=== PATIENT | female | born 1960 | race African-American/Black ===

== ENCOUNTER 2016-11-08 17:51 | Emergency (ER) | payer MEDICARE ==
[2016-02-01 10:45] VITALS: BMI 44.0
[~2016-11-08 17:51] MED LIST: BAYER ASPIRIN325 MG PO; BAYER CHEWABLE81 MG PO; BRILINTA90 MG PO; COLCRYS0.6 MG PO; COREG25 MG PO; GLIPIZIDE10 MG PO; LASIX40 MG PO; NITROQUICK0.4 MG SL; NORVASC5 MG; NORVASC5 MG PO; PHOSLO667 MG PO; PLAVIX75 MG PO; PRINIVIL20 MG PO; SYNTHROID100 MCG PO; SYNTHROID200 MC1 PO; TYLENOL PM1 TAB PO; VICOPROFEN 7.5/1 TAB PO
[2016-11-08 19:42] LABS: BASOPHILS 0.2 % (0.0-2.0); EOSINOPHILS 2.9 % (0-7); HEMOGLOBIN 10.2 g/dL (12-16); IMMATURE GRANULOCYTES 0.2 % (0-5); LYMPHOCYTES 18.5 % (15-50); MCH 31.5 pg (26.0-34.0); MCHC 32.9 g/dL (31.0-37.0); MCV 95.7 fL (80.0-100.0); MEAN PLATELET VOLUME 9.3 fL (7.4-10.4); MONOCYTES 5.6 % (2-11); NEUTROPHILS 72.6 % (40-80); PLATELET COUNT 200 10x3/uL (130-400); RBC 3.24 10x6/uL (4.00-5.40); RDW 14.1 % (11.5-14.5); WBC 8.6 10x3/uL (4.8-10.8)
[2016-11-08 19:58] LABS: APPEARANCE CLEAR (CLEAR); BILIRUBIN NEGATIVE (NEGATIVE); COLOR YELLOW (YELLOW); GLUCOSE 50 mg/dL (NEGATIVE); KETONE NEGATIVE (NEGATIVE); LEUKOCYTE ESTERASE NEGATIVE (NEGATIVE); NITRITE NEGATIVE (NEGATIVE); PROTEIN 3+ mg/dL (NEGATIVE); UROBILINOGEN NORMAL (NORMAL)
[2016-11-08 19:59] LABS: BACTERIA FEW /hpf (NONE SEEN); EPITHELIAL CELLS 0-5 /hpf (0-5); RED CELLS - URINE 0-5 /hpf (0-5); WHITE CELLS - URINE NSEEN /hpf (0-5)
[2016-11-08 20:04] LABS: KETONE - SERUM NEGATIVE (NEGATIVE)
[2016-11-08 20:32] LABS: ALBUMIN 3.6 g/dL (3.4-5.0); ALKALINE PHOSPHATASE 132 U/L (46-116); ALT (SGPT) 18 U/L (10-68); AMYLASE - SERUM 107 U/L (25-115); BILIRUBIN - TOTAL 0.27 mg/dL (0.2-1.3); CARBON DIOXIDE 21.2 mmol/L (21.0-32.0); CHLORIDE - SERUM 106 mmol/L (98-107); CREATINE KINASE 177 UL (21-215); CREATININE - SERUM 9.6 mg/dL (0.6-1.3); POTASSIUM - SERUM 5.2 mmol/L (3.5-5.1); PRO BNP 27182 pg/mL (0-125); PROTEIN - SERUM 7.5 g/dL (6.4-8.2); SODIUM 140 mmol/L (136-145); UREA NITROGEN 58 mg/dL (7-18); eGFR NON AFRICAN AMERICAN 4 mL/min (90-120)
[2016-11-08 20:42] LABS: CALCIUM 7.6 mg/dL (8.5-10.1); LIPASE 346 U/L (73-393); MAGNESIUM - SERUM 2.2 mg/dL (1.8-2.4)
[2016-11-08 20:45] LABS: CALC OSMOLALITY 294 mosm/kg (275-300); GLUCOSE 94 mg/dL (74-106)
[2016-11-08 20:46] LABS: TROPONIN-I 0.262 ng/mL (0.000-0.060)
== END 2016-11-08 21:13 | disposition home or self-care (01) ==
LOC: D.ER 17:51
PROVIDERS: Family Medicine
DX: R53.1 Weakness (principal); D64.9 Anemia, unspecified; E11.9 Type 2 diabetes mellitus without complications; N18.6 End stage renal disease; E87.5 Hyperkalemia

== ENCOUNTER 2016-11-20 03:16 | Emergency (ER) | payer MEDICARE ==
[2016-02-01 10:45] VITALS: BMI 44.0
[2016-11-20 03:59] LABS: BASOPHILS 0.1 % (0.0-2.0); EOSINOPHILS 4.7 % (0-7); HEMATOCRIT 31.2 % (36.0-48.0); HEMOGLOBIN 10.2 g/dL (12-16); IMMATURE GRANULOCYTES 0.6 % (0-5); LYMPHOCYTES 20.5 % (15-50); MCH 31.1 pg (26.0-34.0); MCHC 32.7 g/dL (31.0-37.0); MCV 95.1 fL (80.0-100.0); MEAN PLATELET VOLUME 9.2 fL (7.4-10.4); MONOCYTES 6.2 % (2-11); NEUTROPHILS 67.9 % (40-80); PLATELET COUNT 224 10x3/uL (130-400); RBC 3.28 10x6/uL (4.00-5.40); WBC 7.8 10x3/uL (4.8-10.8)
[2016-11-20 04:32] LABS: ALBUMIN 3.6 g/dL (3.4-5.0); ALKALINE PHOSPHATASE 130 U/L (46-116); ALT (SGPT) 22 U/L (10-68); AMYLASE - SERUM 119 U/L (25-115); BILIRUBIN - TOTAL 0.34 mg/dL (0.2-1.3); CALC OSMOLALITY 292 mosm/kg (275-300); CALCIUM 7.1 mg/dL (8.5-10.1); CARBON DIOXIDE 21.7 mmol/L (21.0-32.0); CHLORIDE - SERUM 102 mmol/L (98-107); CREATINE KINASE 283 UL (21-215); CREATININE - SERUM 8.8 mg/dL (0.6-1.3); GLUCOSE 118 mg/dL (74-106); LIPASE 429 U/L (73-393); POTASSIUM - SERUM 4.8 mmol/L (3.5-5.1); PRO BNP 11784 pg/mL (0-125); PROTEIN - SERUM 8.2 g/dL (6.4-8.2); SODIUM 140 mmol/L (136-145); UREA NITROGEN 48 mg/dL (7-18); eGFR NON AFRICAN AMERICAN 5 mL/min (90-120)
[2016-11-20 04:33] LABS: CKMB 1.3 U/L (0.0-3.6); TROPONIN-I 0.255 ng/mL (0.000-0.060)
== END 2016-11-20 06:06 | disposition home or self-care (01) ==
LOC: D.ER 03:16
PROVIDERS: Family Medicine
DX: M54.9 Dorsalgia, unspecified (principal); N18.6 End stage renal disease; E87.5 Hyperkalemia; E11.9 Type 2 diabetes mellitus without complications

== ENCOUNTER 2016-11-22 18:03 | Inpatient (IN) | payer MEDICARE ==
[~2016-11-22] VITALS: Ht 165.1 cm; Wt 119.9 kg
--- NOTE | ~2016-11-22 | HEMODYNAMI ---
PATIENT:NEISHA BOO MEDICAL RECORD: [id number] : 62 [id number] ADMISSION DATE: 11/22/16 Generatedon:11/23/20168:00 Patient name: NEISHA BOO Patient #: [id number] : 1960 Date of study: 11/23/2016 Page: Of Hemodynamic Procedure Report Patient Data Patient Demographics Procedure consent was obtained First Name: NEISHA Gender: Female Last Name: EMA : 1960 [facility] Initial: Lenore Age: 55 year(s) Patient #: [id number] Race: Black SSN: [id number] Additional ID: [id number] Contact details Address: [address] [place] [address] b8 State: [place] City: [facility] Zip code: [address] Past Medical History Allergies Allergen Reaction Date Comments Reported Other allergy 01/22/2015 Hydrocodone, Morphine, [place], Statins, Allopurinol Morphine 09/11/2016 Other allergy 09/11/2016 allopurinol Other allergy 11/23/2016 morphine,pravastatin, allopurinol Admission Admission Data Admission Date: 11/22/2016 Admission Time: 21:33 Arrival Date: 11/22/2016 Arrival Time: 21:33 Admit Source: Other Insurance Payor: Medicare Room #: D.2130 Lab Results Lab Result Date: 11/23/2016 Lab Result Time: 0:00 Biochemistry Name Units Result Min Max BUN mg/dl 45 --(----)-* 7 18 Creatinine mg/dl 8.4 --(----)-* 0.6 1.3 CBC Name Units Result Min Max Hemoglobin g/dl 10.7 *-(----)-- 13.5 17.5 Procedure Procedure Types Cath Procedure Diagnostic Procedure LHC LHC w/Coronaries Procedure Description Procedure Date Procedure Date: 11/23/2016 Procedure Start Time: 7:48 Procedure End Time: 7:57 Procedure Staff Name Function Leonor Owens RT Scrub Jackson Nielsen MD Performing Physician Sita Steve RN Nurse Jhony Bacon RT Monitor Indication Angina Procedure Data Cath Procedure Fluoroscopy Diagnostic fluoroscopy Total fluoroscopy Time: 1.2 time: 1.2 min min Diagnostic fluoroscopy Total fluoroscopy dose: 802 dose: 802 mGy mGy Contrast Material Contrast Material Type Amount (ml) Isovue 300 66 Entry Location Entry Primary Successful Side Size Upsize Upsize Entry Closure Succes sful Closure Location (Fr) 1 (Fr) 2 (Fr) Remarks Device Remarks Femoral Right 5 Fr Exoseal artery Diagnostic catheters Device Type Used For End Catheter Placement Cordis 5Fr JL 4.0 Left Coronary Catheter (MP) Angiography Cordis 5Fr 3DRC Catheter Right Coronary (MP) Angiography Cordis 5Fr Pigtail LV Angiography Catheter (MP) Procedure Complications No complications Procedure Medications Medication Administration Route Dosage Oxygen NC 2 l/min Heparin Flush Bag added to field 2 bags (1000units/500ml NS) Lidocaine 2% added to field 20 Versed I.V. 1 mg Fentanyl I.V. 50 mcg Versed I.V. 0.5 mg Fentanyl I.V. 25 mcg Hemodynamics Rest HGB: 10.7 (g/dl) Heart Rate: 80 (bpm) Pressure Samples Time Site Value (mmHg) Purpose Heart Use Rate(bpm) 7:53 LV 141/25,29 EDP 44 Gradients Valve Time Site Site Mean SEP/DFP Peak To Heart Use 1 2 (mmHg) (sec/min) Peak Rate (mmHg) (bpm) Aortic 7:53 LV AO 52 Snapshots Pre Cath Intra NCS Post Cath Vital Signs Time Heart Resp SPO2 NIBP (mmHg) Rhythm Pain Sedation Rate (ipm) (%) Status Level (bpm) 7:38:53 87 15 100 178/116(146) NSR 0 (11) 10(A) , No pain 7:43:09 82 16 100 170/101(143) NSR 0 (11) 10(A) , No pain 7:47:23 72 14 100 164/104(136) NSR 0 (11) 10(A) , No pain 7:51:35 73 19 98 160/100(128) NSR 0 (11) 10(A) , No pain 7:55:27 73 18 97 149/95(126) NSR 0 (11) 10(A) , No pain Medications Time Medication Route Dose Verified Delivered Reason Notes Effect iveness by by 7:40:00 Heparin Flush added 2 Jackson Jackson [facility] ([facility]/500[facility] field MD MOSES NS) 7:40:06 Lidocaine 2% added 20ml Jackson Jackson used for to vial Morales [place] procedure field MD MOSES 7:40:52 Oxygen NC 2 Jackson Sita Per l/min St. Nish Steve RN physician 7:44:19 Versed I.V. 1 mg Jackson Sita for [facility]. Nish Steve RN sedation 7:44:29 Fentanyl I.V. 50 Jackson Sita for mcg [facility] Nish Steve RN sedation 7:49:10 Versed I.V. 0.5 Jackson Sita for mg [facility]. Nish Steve RN sedation 7:49:14 Fentanyl I.V. 25 Jackson Sita for mcg [facility]. Nish Steve RN sedation Procedure Log Time Note 7:19:14 Informed consent obtained and on chart 7:19:22 Diagnostic Cath Status : Elective 7:20:06 Indication : Angina 7:20:24 Ramiro Staley RT(R) sent for patient. Start room use. 7:20:25 Time tracking: Regular hours 7:20:30 Plan of Care:Hemodynamics will remain stable., Cardiac rhythm will remain stable., Comfort level will be maintained., Respiratory function will remain adequate., Patient/ family verbilizes understanding of procedure., Procedure tolerated without complication., Recovers from procedure without complications.. 7:21:27 Admit Source: Other 7:21:37 Arrival Date: 11/22/2016 9:33:00 PM 7:21:44 Insurance Payor : Medicare 7:23:23 Lab Result : Hemoglobin 10.7 g/dl 7:23:23 Lab Result : Creatinine 8.4 mg/dl 7:23:23 Lab Result : BUN 45 mg/dl 7:31:10 Patient received from Med II to CCL 1 Alert and oriented. Tansferred to table in Supine position. 7:31:11 Warm blankets applied, and lissy hugger turned on for patient comfort. 7:31:12 ECG and BP/O2 sat monitors applied to patient. 7:31:12 Correct patient and procedure confirmed by team. 7:35:56 ACC Patient presents with Unstable Angina CCS Anginal Class 3--Marked limitation of physical activity, angina occurs with ordinary activity.. 7:37:15 Previous problem with sedation/anesthesia? No ? 7:37:16 Snore? Yes 7:37:17 Sleep apnea? No 7:37:18 Opens mouth fully? Yes 7:37:18 Deviated septum? No 7:37:19 Sticks out tongue? Yes 7:37:21 Airway obstruction? No ? 7:37:23 Dentures? No ? 7:37:29 Patient diabetic? Yes. 7:37:47 If diabetic: On Metformin? No 7:37:50 Vital chart was started 7:37:52 Baseline sample Acquired. 7:38:02 H&P Date Dictated: 11/22/2016 Within 30 days and on chart.. 7:38:03 Pre-op teaching completed and patient verbalized understanding. 7:38:03 Pre-procedure instructions explained to patient. 7:38:06 Family in waiting room. 7:38:08 Patient NPO since Midnight. 7:39:25 Patient allergic to Other allergymorphine,pravastatin, allopurinol 7:39:27 Is the patient allergic to Iodine/contrast media? No. 7:39:29 Is patient on blood thinner?No 7:39:36 Pre procedure: right dorsailis pedis pulse 1+ Palpable, but thready & weak; easily obliterated 7:39:49 Patient pain scale 0/10 ?. 7:40:00 Heparin Flush Bag (1000units/500ml NS) 2 bags added to field was given by Jackson Nielsen MD; used for procedure; 7:40:06 Lidocaine 2% 20ml vial added to field was given by Jackson Nielsen MD; used for procedure; 7:40:21 IV patent on arrival in right antecubital with 0.9% NaCl at O. 7:40:28 Lab results completed and on chart. 7:40:42 Right groin area was prepped with chlora-prep and draped in sterile fashion 7:40:43 Sharps counted by scrub and verified by R.N. 7:40:43 Alarms reviewed by R. N. 7:40:52 Oxygen 2 l/min NC was given by Sita Steve RN; Per physician; 7:42:21 Patient not . Patient has had hysterectomy. 7:42:25 Physician arrived 7:42:25 Physician arrived 7:42:28 Use device set Femoral Dx 7:42:29 Tegaderm 4 x 4 opened to sterile field. 7:42:30 Acist Manifold opened to sterile field. 7:42:30 Acist Hand Control opened to sterile field. 7:42:32 Bag Decanter opened to sterile field. 7:42:32 Acist Syringe opened to sterile field. 7:42:33 Terumo 5Fr Van Lear Sheath opened to sterile field. 7:42:33 Cardinal Cath Pack opened to sterile field. 7:42:34 St Ajith 260cm J .035 wire opened to sterile field. 7:42:35 Cordis Infinity 5Fr Multipack catheter opened to sterile field. 7:43:11 Baseline sample Acquired. 7:43:20 Baseline sample Acquired. 7:43:23 Rhythm: sinus rhythm 7:43:30 Final Timeout: patient, procedure, and site verified with staff and physician. All members of the team are in agreement. 7:43:30 --------ALL STOP TIME OUT------ 7:43:32 Right groin site verified by team. 7:43:34 Physical assessment completed. ASA score P 2 - A patient with mild systemic disease as per Jackson Nielsen MD. 7:43:37 Sedation plan: IV Moderate Sedation Versed, Fentanyl 7:44:19 Versed 1 mg I.V. was given by Sita Steve RN; for sedation; 7:44:29 Fentanyl 50 mcg I.V. was given by Sita Steve RN; for sedation; 7:47:33 Zero performed for pressure channel P1 7:47:37 Zero performed for pressure channel P1 7:47:41 Zero performed for pressure channel P1 7:47:46 Zero performed for pressure channel P1 7:48:11 Full Disclosure recording started 7:48:11 Procedure started. 7:48:40 Local anesthetic to right femoral artery with Lidocaine 2% by Jackson Nielsen MD.INITIAL ACCESS ONLY 7:48:48 A 5 Fr sheath was inserted into the Right Femoral artery 7:48:58 A Cordis 5Fr JL 4.0 Catheter (BETTY) was advanced over the wire and used for Left Coronary Angiography. 7:49:10 Versed 0.5 mg I.V. was given by Sita tSeve RN; for sedation; 7:49:14 Fentanyl 25 mcg I.V. was given by Sita Steve RN; for sedation; 7:50:33 LCA angiography performed. 7:51:07 Catheter removed. 7:51:12 A Cordis 5Fr 3DRC Catheter (MP) was advanced over the wire and used for Right Coronary Angiography. 7:51:40 RCA angiography performed. 7:51:41 Catheter removed. 7:52:29 A Cordis 5Fr Pigtail Catheter (MP) was advanced over the wire and used for LV Angiography. 7:52:32 LV angiography performed. 7:53:06 LV gram done using TATUM 7:53:08 LV hemodynamics recorded. 7:53:11 Injector settings: Ml/sec: 5, Volume: 15, 7:53:19 EF : 52 % 7:53:32 Catheter removed. 7:53:39 Contrast amount:Isovue 300 66ml. 7:53:48 Sheath removed intact; hemostasis achieved with Exoseal to the Right Femoral artery. 7:53:55 Procedure ended.(Physican Out) 7:54:07 Fluoroscopy time 01.20 minutes. 7:54:18 Fluoroscopy dose: 802 mGy 7:54:18 Flurop Dose total: 802 7:54:19 Sharps counted by scrub and verified by R.N. 7:54:20 Insertion/operative site no bleeding no hematoma. 7:54:22 Post-op/insertion site Right Femoral artery dressed using a 4 x 4 and Tegaderm. 7:54:24 Post right femoral artery:stable 7:54:26 Post Procedure Pulses reassessed and unchanged 7:54:28 Post procedure rhythm: sinus rhythm 7:54:29 Post procedure instruction explained to patient.Patient verbalizes understanding. 7:54:43 Cordis 5Fr Exoseal opened to sterile field. 7:54:58 Procedure and supply charges have been captured, reviewed, submitted and are correct. 7:55:02 Procedure Complication : No complications 7:55:05 See physician's report for complete and final results. 7:55:05 Vital chart was stopped 7:55:07 Report given to PCU. 7:55:10 Patient transfered to PCU with Bed. 7:57:13 Full Disclosure recording stopped 7:57:13 Procedure ended. 7:57:18 End room use (Document Last) Device Usage Item Name Manufacture Quantity Catalog Hospital Part Current Minimal Lo t# / Number Charge Number Stock Stock Serial# Code Tegadeenrique 1 [id number] 246262 [id number] 5 4 x 4 Acist Acist 1 33983 788785 733511 934053 5 Hand Medical Control Systems Inc Acist Acist 1 41220 729428 696781 044080 5 Manifold Medical Systems Inc Acist Acist 1 57175 735703 812444 729400 20 Syringe Medical Systems Inc Bag Microtek 1 2002S 187643 14544 789136 5 Dec[employer]Agent Inc. Cardinal Cardinal [address] 040647 50400 796570 5 Cath Pack Health Terumo Terumo 1 [id number] 977651 980388 218706 [address] Ajith 1 600178 661863 229974 459493 30 260cm J .035 wire Cordis Cardinal 1 [id number] 280717 90933 586781 30 [employer] Health 5Fr Multipack catheter Cordis Cardinal 1 965390 5 5Fr JL Health 4.0 Catheter (MP) Cordis Cardinal 1 021173 5 5Fr 3DRC Health Catheter (MP) Cordis Cardinal 1 395512 5 5Fr Health Pigtail Catheter (MP) Cordis Cardinal 1 EX500 315462 965695 562493 10 5Fr Health Exoseal Signature Audit [place] Stage Time Signature Unsigned Intra-Procedure 11/23/2016 Jhony Bacon 8:00:09 AM RT(R) Signatures Monitor : Jhony Bacon RT Signature : Date : Time : [facility] [address] [facility] [place] [address]
[2016-11-22 20:09] LABS: BASOPHILS 0.4 % (0.0-2.0); EOSINOPHILS 4.8 % (0-7); HEMATOCRIT 32.8 % (36.0-48.0); HEMOGLOBIN 10.7 g/dL (12-16); IMMATURE GRANULOCYTES 0.8 % (0-5); LYMPHOCYTES 28.7 % (15-50); MCH 31.7 pg (26.0-34.0); MCHC 32.6 g/dL (31.0-37.0); MEAN PLATELET VOLUME 9.5 fL (7.4-10.4); MONOCYTES 10.6 % (2-11); NEUTROPHILS 54.7 % (40-80); PLATELET COUNT 206 10x3/uL (130-400); RBC 3.38 10x6/uL (4.00-5.40); RDW 14.3 % (11.5-14.5); WBC 7.4 10x3/uL (4.8-10.8)
[2016-11-22 20:20] LABS: ALBUMIN 3.3 g/dL (3.4-5.0); ANION GAP 18.7 mmol/L (8-16); BILIRUBIN - TOTAL 0.32 mg/dL (0.2-1.3); CARBON DIOXIDE 24.5 mmol/L (21.0-32.0); CREATININE - SERUM 8.4 mg/dL (0.6-1.3); POTASSIUM - SERUM 5.2 mmol/L (3.5-5.1); PROTEIN - SERUM 8.6 g/dL (6.4-8.2)
[2016-11-22] MEDS ORDERED: RENVELA800 MG PO (23:25)
--- NOTE | 2016-11-22 23:28 | NUR ---
RECIEVED TO 2129 FROM ER VIA WHEELCHAIR, AAOX3, SKIN WARM AND DRY, RESP UNLABORED, IV PATENT TO RIGHT AC, TELEMETRY IN PLACE SHOWING SINUS, O2@2LNC, NO DISTRESS NOTED
[2016-11-22 23:56] VITALS: BMI 44.0
[2016-11-23] VITALS: BP 138/84
[2016-11-23 04:00] VITALS: BP 142/78
--- NOTE | 2016-11-23 05:25 | NUR ---
RESTING QUIETLY IN BED, NO DISTRESS NOTED
--- NOTE | 2016-11-23 05:59 | NUR ---
NO CHANGES FROM PREVIOUS ASSESSMENT, CALL LIGHT IN REACH. WILL CONTINUE WITH PLAN OF CARE.
--- NOTE | 2016-11-23 07:29 | NUR ---
0710-NPO STATUS FOR HEART CATH THIS AM. PERMITS SIGNED. PRE-OP MEDS GIVEN. ON HEART MONITOR FROM ELECTRON BEAM WELDING MACHINE OPERATOR REPORT OF SR, OFF MONITOR AT THIS TIME. SALINE LOCK SEEN TO RIGHT AC, FLUSHES WELL. LEFT AVF, + BRUIT AND THRILL. ON ROOM AIR AT THIS TIME. WILL CONTINUE TO MONITOR.
--- NOTE | 2016-11-23 08:18 | NUR ---
0810-RETURNS FROM BACTERIOLOGY PROFESSOR WITH DRESSING DRY AND INTACT TO RIGHT GROIN. PPP AND STRONG. PATIENT TO LAY FLAT X 2 HOURS. WILL MONITOR.
--- NOTE | 2016-11-23 09:58 | NUR ---
0950-TO DIALYSIS VIA BED. TOLD DIALYSIS NURSE, JENNIFER, THAT PATIENT CAN SIT UP AT 30 DEGREES AT 1030 AND TO WATCH THE RIGHT GROIN CLOSELY. TO CALL ME IF ANY QUESTIONS.
--- NOTE | 2016-11-23 11:31 | NUR ---
STILL IN DIALYSIS. WILL HANG LEVAQUIN WHEN BACK ON FLOOR.
--- NOTE | 2016-11-23 13:26 | NUR ---
RETURNS FROM DIALYSIS.
[2016-11-23 13:34] VITALS: Ht 165.1 cm; Wt 119.9 kg
--- NOTE | 2016-11-23 14:25 | NUR ---
PATIENT COMPLAINTS OF NAUSEA, NO MEDICATIONS ON EMAR. BENNY WITH RENAL IS PAGED.
--- NOTE | 2016-11-23 15:16 | NUR ---
NO ANSWER YET FROM RAMANDEEP ZAPATA WITH RENAL. PAGED AGAIN. AWAITING CALL BACK.
[2016-11-23 16:30] VITALS: BP 175/92
--- NOTE | 2016-11-23 17:19 | NUR ---
SITTING ON SIDE OF BED EATING SUPPER. DENIES NEEDS AT PRESENT TIME. WILL CONTINUE TO MONITOR.
--- NOTE | 2016-11-23 19:00 | NUR ---
BEDSIDE REPORT RECIEVED, INITIAL ASSESSMENT COMPLETE, PLEASE SEE FLOW SHEETS FOR DETAILS. PT COMPLAINS OF PAIN IN BACK, WILL SEE ORDERS FOR AVAILABLE MEDS AND FOLLOW ORDERS ACCORDINGLY. DENIES ANY OTHER NEEDS AT THIS TIME, WILL CONTINUE TO MONITOR.
--- NOTE | 2016-11-23 21:00 | NUR ---
PT RESTING, STATED SHE GOT UP TO BATHROOM INDEPENDENTLY, DENIES NEEDS AT THIS TIME, WILL CONTINUE TO MONITOR.
[2016-11-23 21:09] VITALS: BP 176/96
--- NOTE | 2016-11-23 23:01 | NUR ---
SPOKE WITH PT ABOUT CURRENT MEDS AND ALSO ABOUT HER NAGGING COUGH. CALLED AND SPOKE WITH BENNY SABILLON AND RECIEVED ORDERS.
[2016-11-23 23:48] VITALS: BP 179/91
--- NOTE | 2016-11-24 01:05 | NUR ---
PT RESTING, WATCHING TELEVISION. DENIES NEEDS AT THIS TIME. BED LOW AND LOCKED, CALL LIGHT IN REACH. NO S&S OF ACUTE DISTRESS AT THIS TIME. WILL CONTINUE TO MONITOR.
--- NOTE | 2016-11-24 02:48 | NUR ---
SLEPPING, WILL CONTINUE TO MONITOR.
[2016-11-24 05:05] LABS: BASOPHILS 0.3 % (0.0-2.0); EOSINOPHILS 4.7 % (0-7); HEMATOCRIT 28.5 % (36.0-48.0); HEMOGLOBIN 9.2 g/dL (12-16); IMMATURE GRANULOCYTES 0.7 % (0-5); LYMPHOCYTES 31.6 % (15-50); MCHC 32.3 g/dL (31.0-37.0); MEAN PLATELET VOLUME 9.4 fL (7.4-10.4); MONOCYTES 7.1 % (2-11); NEUTROPHILS 55.6 % (40-80); PLATELET COUNT 190 10x3/uL (130-400); RBC 2.97 10x6/uL (4.00-5.40); RDW 14.1 % (11.5-14.5); WBC 7.1 10x3/uL (4.8-10.8)
[2016-11-24 05:12] VITALS: BP 137/74
[2016-11-24 05:17] LABS: CARBON DIOXIDE 25.5 mmol/L (21.0-32.0); CREATININE - SERUM 8.4 mg/dL (0.6-1.3); POTASSIUM - SERUM 4.5 mmol/L (3.5-5.1)
[2016-11-24 05:28] LABS: ALBUMIN 2.9 g/dL (3.4-5.0)
[2016-11-24 05:33] LABS: CALCIUM 6.8 mg/dL (8.5-10.1)
--- NOTE | 2016-11-24 05:43 | NUR ---
CRITICAL LABS CALLED IN, MEE MOSES.
--- NOTE | 2016-11-24 07:00 | NUR ---
RECEIVED REPORT. ASSUMED CARE OF PATIENT. PATIENT AMBULATING IN ROOM. RESP EVEN AND UNLABORED. GOOD BRUIT AND THRILL TO LEFT AV FISTULA. CALL LIGHT WITHIN REACH. DENIES NEEDS. NO DISTRESS.
[2016-11-24 08:31] VITALS: BP 139/74
[2016-11-24 11:42] VITALS: BP 144/75
--- NOTE | 2016-11-24 14:41 | NUR ---
RESTING WELL IN CHAIR AT BEDSIDE. CALL LIGHT WITHIN REACH. DENIES NEEDS. NO DISTRESS.
[2016-11-24 15:51] VITALS: BP 115/67
--- NOTE | 2016-11-24 15:51 | NUR ---
MEDICATED FOR PAIN AT THIS TIME. NO DISTRESS. SITTING TO CHAIR AT BEDSIDE.
--- NOTE | 2016-11-24 16:54 | NUR ---
PATIENT PATHWAYS - Patient uses [facility] on Wednesday/Wednesday/Wednesday am for OPHD. Medical records uploaded and forwarded to the unit for their records. AKOSUA PRL
[2016-11-24 19:00] VITALS: BP 115/64
--- NOTE | 2016-11-24 19:00 | NUR ---
REPORT RECIEVED, INITIAL ASSESSMENT COMPLETE, PLEASE SEE FLOW SHEETS FOR DETAILS. DENIES PAIN/NEEDS AT THIS TIME, BED LOW AND LOCKED, CALL LIGHT IN REACH. VSS, WILL CONTINUE TO MONITOR.
--- NOTE | 2016-11-25 00:18 | NUR ---
PT SLEEPING, WAKENED UPON ENTERING, DENIES PAIN/NEEDS AT THIS TIME. BED LOW AND LOCKED, CALL LIGHT IN REACH. WILL CONTINUE TO MONITOR.
--- NOTE | 2016-11-25 03:31 | NUR ---
PT SLEEPING. NO S&S OF DISTRESS. BREATHING UNLABORED. WILL CONTINUE TO MONITOR.
[2016-11-25 04:00] VITALS: BP 172/87
[2016-11-25 06:50] LABS: BASOPHILS 0.5 % (0.0-2.0); HEMATOCRIT 30.7 % (36.0-48.0); HEMOGLOBIN 10.1 g/dL (12-16); IMMATURE GRANULOCYTES 1.3 % (0-5); LYMPHOCYTES 36.7 % (15-50); MCH 31.3 pg (26.0-34.0); MCHC 32.9 g/dL (31.0-37.0); MEAN PLATELET VOLUME 9.7 fL (7.4-10.4); MONOCYTES 7.1 % (2-11); NEUTROPHILS 49.4 % (40-80); RBC 3.23 10x6/uL (4.00-5.40); RDW 13.9 % (11.5-14.5)
[2016-11-25 07:10] LABS: ANION GAP 19.3 mmol/L (8-16); CARBON DIOXIDE 23.3 mmol/L (21.0-32.0); CREATININE - SERUM 9.1 mg/dL (0.6-1.3); PHOSPHOROUS 6.5 mg/dL (2.5-4.9); POTASSIUM - SERUM 4.6 mmol/L (3.5-5.1)
[2016-11-25 07:13] LABS: PLATELET COUNT 233 10x3/uL (130-400); WBC 9.1 10x3/uL (4.8-10.8)
[2016-11-25 07:17] LABS: CALCIUM 6.7 mg/dL (8.5-10.1)
[2016-11-25 07:39] VITALS: BP 141/83
[2016-11-25] MEDS ORDERED: PHENERGAN DM SYR5 ML PO (08:10)
[2016-11-25] MEDS ORDERED: MUCINEX600 MG PO (08:11)
--- NOTE | 2016-11-25 10:11 | NUR ---
Patient Name: NEISHA BOO Admission Status: ER Accout number: [id number] Admission Date: 11-22-2016 : 1960 Admission Diagnosis:CHEST PAIN, UNSPECIFIED Attending: WILTON Current LOS: 3 Anticipated DC Date: 11-25-2016 Planned Disposition: Home Primary Insurance: MEDICARE A & B Discharge Planning Comments: * Is the patient Alert and Oriented? Yes 0 * How many steps to enter\exit or inside your home? 17 0 * PCP DR. MOISE 0 * Pharmacy [facility] ON [address] OR [facility] 0 * Preadmission Environment Home Alone 0 * ADLs Independent 0 * Equipment None 0 * Other Equipment NO MEDICAL EQUIPMENT PROVIDER PREFERENCE 0 * List name and contact numbers for known caregivers / representatives who currently or will assist patient after discharge: ROX BE, SISTER, 0 * Community resources currently utilized Other 0 * Please name any agencies selected above. OUTPATIENT DIALYSIS, [facility], M/W, 0545AM, [facility] (MEDICAID) TRANSPORT 0 * Additional services required to return to the preadmission environment? No 0 * Can the patient safely return to the preadmission environment? Yes 0 * Has this patient been hospitalized within the prior 30 days at any hospital? No 0 CM MET WITH PT IN ROOM TO DISCUSS DISCHARGE PLANNING AND NEEDS. PT REPORTS LIVING AT HOME INDEPENDENTLY AND ALONE. PT HAS NO MEDICAL EQUIPMENT AND NO OUTSIDE SERVICES ASSISTING IN THE HOME. PT ATTENDS OUTPATIENT DIALYSIS ON M/ SCHEDULE AT [facility], PT USES MEDICAID TRANSPORT THAT SHE HAS TO PAY FOR. REPORTS SHE SPENDS A LOT OF TIME AT HER SISTER'S HOUSE AND IS ON A WAITING LIST FOR A DOWNSTAIRS APARTMENT. CM DISCUSSED AVAILABILITY OF HOME HEALTH, REHAB SERVICES AND MEDICAL EQUIPMENT. PT DENIES DISCHARGE NEEDS, REPORTS HER NEPHEW WILL PICK HER UP FOR DISCHARGE HOME. IMPORTANT MESSAGE FROM MEDICARE PROVIDED AND EXPLAINED. Bet Taker: Killian Jha
[2016-11-25 11:38] VITALS: BP 153/77
--- NOTE | 2016-11-25 13:00 | NUR ---
NOTIFY OF ARTERIAL CALCIUM 0.9. 2G CALCIUM IV ORDERED PER BEFORE DISCHARGE. ALERT AND ORIENTED X4. SITTING ON SIDE OF BED. DENIES PAIN OR SOB. CONTINUE PLAN OF CARE. BED LOCKED AND LOW. CALL LIGHT IN REACH. TWO SIDERAILS UP. SINUS RHYTHM ON TELEMETRY.
--- NOTE | 2016-11-25 14:16 | OP ---
PATIENT NAME: NEISHA BOO MEDICAL RECORD: [id number] :[birth year] LOCATION:D.M2 D.2130 ADMISSION DATE:11/22/16 SURGEON: ANNIE MENG MD DATE OF OPERATION: 11/23/2016 PROCEDURE: Left heart catheterization, selective coronary angiography, and right femoral artery approach. CATHETERS: A 5-Malawian sheath, 5/4 left and right Matias, 5/4 pig. The procedure was well tolerated. The patient returned to the torres, sheath removed. ExoSeal device was placed. FINDINGS: Left ventriculography in the 30-degree TATUM view: Normal wall motion and normal systolic function. CORONARY ANATOMY: Left main: Left main is free disease. LAD: LAD diagonal in the area of previous stenting is widely patent throughout its course without evidence of restenosis. CIRCUMFLEX: Circumflex left dominant system free of disease. RIGHT CORONARY ARTERY: Rudimentary, still a moderate sized vessel, free of disease. IMPRESSION: No evidence of restenosis. No progression of [place] disease. Normal LV function. TRANSINT:[id number] Voice Confirmation ID: [id number] DOCUMENT ID: [id number] ANNIE MENG MD at 1416 CC: [id number] DICTATION DATE: 11/23/16 0757 HOOK AND EYE SEWING MACHINE OPERATOR: 11/23/16 0914 ADM IN [place] [address] [place] [address]
--- NOTE | 2016-11-25 14:16 | CN ---
PATIENT NAME:NEISHA BOO MEDICAL RECORD: [id number] : 62 LOCATION:D. D.2130 ADMIT DATE: 11/22/16 ACCOUNT: [id number] CONSULTING PHYSICIAN: ANNIE MENG MD REFERRING PHYSICIAN: RAMESH ARORA MD DATE OF CONSULTATION: 11/23/2016 Cardiology Consultation HSTORY OF PRESENT ILLNESS: A 55-year-old lady well known with history of coronary artery disease, status post stenting of the LAD diagonal. She is on chronic dialysis. Certainly at risk for a restenosis, was admitted with breathlessness, noted to have ST-T changes; however, she does have LVH as well as elevated enzymes, although obviously interpretation more difficult secondary to chronic renal insufficiency with. We are asked to see her concerning her cardiovascular status. PAST MEDICAL HISTORY: 1. History of hypertension. 2. Hyperlipidemia. 3. Chronic renal insufficiency, on dialysis. 5. Diabetes mellitus. 6. Thyroid replacement. ALLERGIES: ALLOPURINOL, MORPHINE, AND STATINS. MEDICATIONS: Typically include carvedilol 25 b.i.d., amlodipine 5 every day, aspirin 81 every day, Renvela 800 every day, Synthroid 200 mcg every day, Glucotrol 10 every day, and colchicine. 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 She is a nonsmoker. She takes care of all of her ADLS. No set of exercise program. REVIEW OF SYSTEMS: The patient reports easy bruising but reports no swollen glands. The patient reports no fever, no night sweats, no significant weight gain, no significant weight loss. No significant exercise tolerance. The patient reports no dry eyes, no irritation, no vision change. Patient reports no difficulty hearing and no ear pain. Patient reports no frequent nose bleeds or nose and sinus problems. Patient reports on arm pain on exertion. No shortness of breath while lying down. No history of heart murmur. Patient reports no cough, no wheezing or coughing up blood. Patient reports no abdominal pain, no vomiting. Normal appetite. No diarrhea and not vomiting blood. No nausea and no constipation. Patient reports no incontinence. No difficulty urinating. No hematuria. No increased frequency. Patient reports no muscle aches. No weakness, no arthralgias, no back pain. No swelling of the extremities. Patient reports no abnormal mole, no jaundice, no rashes. Reports no loss of consciousness. No weakness and no numbness. No seizures, dizziness, or headaches. The patient reports no depression, no sleep disturbance, feeling safe in a relationship and no alcohol abuse. Patient reports on fatigue. Reports no runny nose or sinus pressure. No itching, no hives, and no frequent sneezing. PHYSICAL EXAMINATION: GENERAL: Pleasant female in no acute distress. VITAL SIGNS: 142/78, pulse 76 and regular. CONSULT REPORT [id number] NEISHA BOOENT: Normocephalic and atraumatic. NECK: No JVD or bruit. HEART: Regular, S4 gallop is noted. LUNGS: Decreased air excursion. ABDOMEN: Soft and nontender. EXTREMITIES: Pulses 2+. No edema. NEUROLOGIC: Grossly intact. DIAGNOSTIC DATA: ECG shows LVH, questionable changed from previous. IMPRESSION: Probable acute coronary syndrome within window for restenosis. PLAN: For angiography, intervention based on the above. TRANSINT:[id number] Voice Confirmation ID: [id number] DOCUMENT ID: [id number] ANNIE MENG MD at 1416 CC: [id number] DICTATION DATE: 11/23/16 07 USER EXPERIENCE TEAM LEAD: 11/23/16 0818 ADM IN [facility] [address] [place] [address]
[2016-11-25 15:25] VITALS: BP 146/77
--- NOTE | 2016-11-25 18:51 | NUR ---
ALERT AND ORIENTED X4. SITTING UP ON SIDE OF BED. DISCHARGE INSTRUCTIONS GIVEN VERBALLY AND WRITTEN. DISCHARGE PAPERS SIGNED ON CHART. DC RT AC IV TIP INTACT. CALL IN LEVAQUIN 250mg PO DAILY FOR 5DAYS AND TYLENOL 3 Q6 15 [facility]S [facility] [address] [facility] [facility]AO. ESCORT TO RIDE VIA AMBULATORY. REMAINS FREE FROM INJURY.
== END 2016-11-25 19:03 | disposition home or self-care (01) | DRG 286 ==
LOC: D.ER 18:03 → D.M2 21:33
PROVIDERS: Internal Medicine Interventional Cardiology; Physician Assistant Medical; ADMIT Internal Medicine
PROC: B2151ZZ Fluoroscopy of Left Heart using Low Osmolar Contrast (ICD-10-PCS; 2016-11-23)
PROC: 4A023N7 Measurement of Cardiac Sampling and Pressure, Left Heart, Percutaneous Approach (ICD-10-PCS; 2016-11-23)
PROC: 5A1D60Z (ICD-10-PCS; 2016-11-23)
PROC: B2111ZZ Fluoroscopy of Multiple Coronary Arteries using Low Osmolar Contrast (ICD-10-PCS; principal; 2016-11-23 07:20)
DX: R07.9 Chest pain, unspecified (principal); N18.6 End stage renal disease; J18.9 Pneumonia, unspecified organism; I42.9 Cardiomyopathy, unspecified; Z68.41 Body mass index [BMI] 40.0-44.9, adult; I12.9 Hypertensive chronic kidney disease with stage 1 through stage 4 chronic kidney disease, or unspecified chronic kidney disease; I25.10 Atherosclerotic heart disease of native coronary artery without angina pectoris; E11.22 Type 2 diabetes mellitus with diabetic chronic kidney disease; Z99.2 Dependence on renal dialysis; E78.5 Hyperlipidemia, unspecified; E87.5 Hyperkalemia; E83.51 Hypocalcemia; D63.1 Anemia in chronic kidney disease; Z95.5 Presence of coronary angioplasty implant and graft; I25.2 Old myocardial infarction; E66.01 Morbid (severe) obesity due to excess calories

== ENCOUNTER → 2016-12-11 10:20 | Outpatient (CLI) | payer MEDICARE ==
[2016-11-23 13:34] VITALS: BMI 43.9
[~2016-12-11 10:20] MED LIST changes: +MUCINEX600 MG PO; +PHENERGAN DM SYR5 ML PO; +RENVELA800 MG PO
== END | disposition home or self-care (01) ==
LOC: D.RAD 10:20
DX: R06.02 Shortness of breath (principal)

== ENCOUNTER 2017-08-13 09:50 | Emergency (ER) | payer MEDICARE ==
[2016-11-23 13:34] VITALS: BMI 43.9
[2017-08-13 10:38] LABS: BASOPHILS 0.2 % (0-2); EOSINOPHILS 3.9 % (0-7); HEMATOCRIT 33.1 % (36.0-48.0); HEMOGLOBIN 11.4 g/dL (12-16); IMMATURE GRANULOCYTES 0.3 % (0-5); LYMPHOCYTES 31.9 % (15-50); MCH 32.2 pg (26.0-34.0); MCHC 34.4 g/dL (31.0-37.0); MCV 93.5 fL (80.0-100.0); MEAN PLATELET VOLUME 10.7 fL (7.4-10.4); MONOCYTES 5.7 % (2-11); PLATELET COUNT 296 10x3/uL (130-400); RBC 3.54 10x6/uL (4.00-5.40); RDW 13.6 % (11.5-14.5); WBC 6.2 10x3/uL (4.8-10.8)
[2017-08-13 10:44] LABS: INR 0.93 (0.85-1.17); PROTIME 12.3 SECONDS (11.6-15.0)
[2017-08-13 11:23] LABS: ALBUMIN 3.5 g/dL (3.4-5.0); BILIRUBIN - TOTAL 0.31 mg/dL (0.2-1.3); CALCIUM 7.5 mg/dL (8.5-10.1); CARBON DIOXIDE 27.5 mmol/L (21.0-32.0); CREATININE - SERUM 5.2 mg/dL (0.6-1.3); POTASSIUM - SERUM 3.5 mmol/L (3.5-5.1)
[2017-08-13 11:32] LABS: MAGNESIUM - SERUM 1.9 mg/dL (1.8-2.4)
== END 2017-08-13 13:34 | disposition home or self-care (01) ==
LOC: D.ER 09:50
PROVIDERS: Nurse Practitioner Family
DX: R51 Headache (principal); Z99.2 Dependence on renal dialysis; E11.9 Type 2 diabetes mellitus without complications; N18.6 End stage renal disease

== ENCOUNTER 2017-09-17 10:28 | Outpatient (CLI) | payer MEDICARE ==
[~2017-09-17] VITALS: Ht 165.1 cm; Wt 119.4 kg
--- NOTE | ~2017-09-17 | HEMODYNAMI ---
PATIENT:NEISHA BOO MEDICAL RECORD: [id number] : 62 LOCATION:DNickiCAT ADMISSION DATE: 09/17/17 Generatedon:09/17/201715:59 Patient name: NEISHA BOO Patient #: [id number] : 1960 Date of study: 09/17/2017 Page: Of Hemodynamic Procedure Report Patient Data Patient Demographics Procedure consent was obtained First Name: NEISHA Gender: Female Last Name: EMA : 1960 [facility] Initial: Len[place] Age: 56 year(s) Patient #: [id number] Race: Black SSN: [id number] Additional ID: [id number] Contact details [address]: [address] [place] [address] [address] State: [place] City: [facility] Zip code: [address] Past Medical History Allergies Allergen Reaction Date Comments Reported Other allergy 01/22/2015 Hydrocodone, Morphine, [place], Statins, Allopurinol Morphine 09/11/2016 Other allergy 09/11/2016 allopurinol Other allergy 11/23/2016 morphine,pravastatin, allopurinol Other allergy 09/17/2017 Morphine, Allopurinol, pravastatin, azithromycin. Admission Admission Data Admission Date: 09/17/2017 Admission Time: 10:28 Admit Source: Emergency department Lab Results Lab Result Date: 09/17/2017 Lab Result Time: 11:05 Biochemistry Name Units Result Min Max BUN mg/dl 22 --(----)-* 7 18 Creatinine mg/dl 5.5 --(----)-* 0.6 1.3 CBC Name Units Result Min Max Hematocrit % 33.1 *-(----)-- 42 54 Hemoglobin g/dl 11.1 *-(----)-- 13.5 17.5 Procedure Procedure Types Cath Procedure Diagnostic Procedure LHC LHC w/Coronaries PCI Procedure Coronary Stent Coronary Stent Initial Miscellaneous Procedures Moderate Sedation up to 15 minutes Procedure Description Procedure Date Procedure Date: 09/17/2017 Procedure Start Time: 15:38 Procedure End Time: 15:57 Procedure Staff Name Function Jonah Arce MD Performing Physician Javier Hatfield RT Monitor Janene Lu RT Scrub Maxwell Wallace RN Nurse Procedure Data Cath Procedure Fluoroscopy Diagnostic fluoroscopy Total fluoroscopy Time: 85 time: 85 min min Diagnostic fluoroscopy Total fluoroscopy dose: dose: 332.48 mGy 332.48 mGy Contrast Material Contrast Material Type Amount (ml) Isovue 300 85 Entry Location Entry Primary Successful Side Size Upsize Upsize Entry Closure Succes sful Closure Location (Fr) 1 (Fr) 2 (Fr) Remarks Device Remarks Femoral Right 5 Fr 6 Fr Exoseal artery Short Estimated blood loss: 10 ml Diagnostic catheters Device Type Used For End Catheter Placement Cordis 5Fr Pigtail Procedure Catheter (MP) Cordis 5Fr JL 4.0 Procedure Catheter (MP) Cordis 5Fr 3DRC Catheter Procedure (MP) Procedure Complications No complications Procedure Medications Medication Administration Route Dosage Oxygen NC 2 l/min Heparin Flush Bag added to field 2 bags (1000units/500ml NS) 0.9% NaCl I.V. 100 ml/hr Fentanyl I.V. 50 mcg Versed I.V. 1 mg Fentanyl I.V. 50 mcg Versed I.V. 1 mg Fentanyl I.V. 50 mcg Fentanyl I.V. 50 mcg Heparin Bolus I.V. 4000 units Hemodynamics Rest HGB: 11.1 (g/dl) Heart Rate: 72 (bpm) Snapshots Pre Cath Intra NCS Post Cath Vital Signs Time Heart Resp SPO2 etCO2 NIBP (mmHg) Rhythm Pain Sedation Rate (ipm) (%) (mmHg) Status Level (bpm) 14:43:00 73 19 98 0 167/89(126) NSR 0 (11) 10(A) , No pain 14:47:41 73 17 100 17.1 166/84(138) NSR 0 (11) 10(A) , No pain 14:52:21 71 23 99 37.2 154/84(120) NSR 0 (11) 10(A) , No pain 14:56:58 70 19 100 42.5 150/80(121) NSR 0 (11) 10(A) , No pain 15:01:30 69 19 100 22.3 154/86(118) NSR 0 (11) 10(A) , No pain 15:06:09 69 16 100 27.5 150/78(120) NSR 0 (11) 10(A) , No pain 15:10:41 69 19 100 32 151/88(120) NSR 0 (11) 10(A) , No pain 15:15:20 69 21 100 35.8 146/76(120) NSR 0 (11) 10(A) , No pain 15:19:54 69 18 100 37.2 153/80(124) NSR 0 (11) 10(A) , No pain 15:24:29 69 16 100 36.5 152/85(122) NSR 0 (11) 10(A) , No pain 15:29:03 68 18 100 32.8 155/85(124) NSR 0 (11) 10(A) , No pain 15:33:39 67 17 100 36.5 151/85(119) NSR 0 (11) 10(A) , No pain 15:38:16 68 17 100 25.3 158/80(117) NSR 0 (11) 10(A) , No pain 15:42:51 67 17 98 23.8 146/79(112) NSR 0 (11) 10(A) , No pain 15:47:25 70 16 99 21.6 151/80(129) NSR 0 (11) 10(A) , No pain 15:52:04 71 17 98 26 161/77(104) NSR 0 (11) 10(A) , No pain 15:56:38 69 19 99 43.2 142/76(111) NSR 0 (11) 10(A) , No pain Medications Time Medication Route Dose Verified Delivered Reason Notes Effectiveness by by 14:48:49 Oxygen NC 2 Jonah Arreola Per physician l/min Yazmin Wallace RN 14:48:58 Heparin Flush added 2 Jonah Arreola used for Bag to bags Yazmin Wallace vice provost (1000units/500ml field NS) 14:49:31 0.9% NaCl I.V. 100 Jonah Arreola Per physician ml/hr Yazmin Wallace RN 15:38:11 Fentanyl I.V. 50 Jonah Arreola for sedation [facility] Yazmin Wallace RN 15:38:16 Versed I.V. 1 mg Jonah Arreola for sedation Yazmin Wallace RN 15:40:14 Fentanyl I.V. 50 Jonah Arreola for sedation mcg Yazmin Wallace RN 15:40:17 Versed I.V. 1 mg Jonah Arreola for sedation Yazmin Wallace RN 15:43:05 Fentanyl I.V. 50 Jonah Arreola for sedation mcg Yazmin Wallace RN 15:48:22 Fentanyl I.V. 50 Jonah Arreola for sedation mcg Yazmin Wallace RN 15:48:36 Heparin Bolus I.V. 4000 Jonah Arreola for units Yazmin Wallace RN anticoagulation Procedure Log Time Note 14:25:35 Informed consent obtained and on chart 14:25:38 Admit Source: Emergency department 14:25:56 Javier Taveraser RT(R) sent for patient. Start room use. 14:25:57 Time tracking: Regular hours 14:26:00 Plan of Care:Hemodynamics will remain stable., Cardiac rhythm will remain stable., Comfort level will be maintained., Respiratory function will remain adequate., Patient/ family verbilizes understanding of procedure., Procedure tolerated without complication., Recovers from procedure without complications.. 14:41:27 Vital chart was started 14:41:41 Patient received from ED to CCL 3 Alert and oriented. Tansferred to table in Supine position. 14:41:41 Warm blankets applied, and lissy hugger turned on for patient comfort. 14:41:42 Correct patient and procedure confirmed by team. 14:41:43 ECG and BP/O2 sat monitors applied to patient. 14:41:47 Full Disclosure recording started 14:48:49 Oxygen 2 l/min NC was administered by Maxwell Wallace RN; Per physician; 14:48:58 Heparin Flush Bag (1000units/500ml NS) 2 bags added to field was administered by Maxwell Wallace RN; used for procedure; 14:49:31 0.9% NaCl 100 ml/hr I.V. was administered by Maxwell Wallace RN; Per physician; 14:50:23 Baseline sample Acquired. 14:50:27 Rhythm: sinus rhythm 14:50:34 H&P Date Dictated: 09/17/2017 ER History on chart., New H&P dictated by physician.. 14:50:35 Pre-procedure instructions explained to patient. 14:50:35 Pre-op teaching completed and patient verbalized understanding. 14:50:37 Family in waiting room. 14:50:40 Patient NPO since Midnight. 14:53:12 Patient allergic to Other allergyMorphine, Allopurinol, pravastatin, azithromycin. 14:53:14 Is the patient allergic to Iodine/contrast media? No. 14:53:15 Is patient on blood thinner?Yes 14:53:17 ACC The patient was administered the following blood thiners within the last 24 hours: ACCPlavix 14:53:18 Patient diabetic? Yes. 14:53:19 If diabetic: On Metformin? No 14:53:22 Previous problem with sedation/anesthesia? No ? 14:53:23 Snore? Yes 14:53:24 Sleep apnea? No 14:53:25 Deviated septum? No 14:53:25 Opens mouth fully? Yes 14:53:26 Sticks out tongue? Yes 14:53:28 Airway obstruction? No ? 14:53:29 Dentures? No ? 14:53:34 Pre procedure: right dorsailis pedis pulse 1+ Palpable, but thready & weak; easily obliterated 14:53:38 Patient pain scale 0/10 ?. 14:53:47 IV patent on arrival in right wrist with 0.9% NaCl at [facility]. 14:54:16 Lab Result : BUN 22 mg/dl 14:54:16 Lab Result : Hemoglobin 11.1 g/dl 14:54:16 Lab Result : Creatinine 5.5 mg/dl 14:54:16 Lab Result : Hematocrit 33.1 % 14:54:19 Lab results completed and on chart. 14:54:22 Right groin area was prepped with chlora-prep and draped in sterile fashion 14:54:23 Alarms reviewed by R. N. 14:54:24 Sharps counted by scrub and verified by R.N. 14:54:26 Use device set Femoral Dx 14:54:27 Tegaderm 4 x 4 opened to sterile field. 14:54:28 Acist Hand Control opened to sterile field. 14:54:28 Acist Manifold opened to sterile field. 14:54:29 Acist Syringe opened to sterile field. 14:54:30 Bag Decanter opened to sterile field. 14:54:30 Medline Cath Pack opened to sterile field. 14:54:31 Terumo 5Fr [place] Sheath opened to sterile field. 14:54:32 St Ajith 260cm J .035 wire opened to sterile field. 14:54:34 Diagnostic Infinity 5Fr Multipack catheter opened to sterile field. 14:58:24 Zero performed for pressure channel P1 15:06:56 Zero performed for pressure channel P1 15:30:36 Procedure delayed due to: Complications with another procedure. 15:37:22 Physician arrived 15:37: --------ALL STOP TIME OUT------ 15:37:23 Final Timeout: patient, procedure, and site verified with staff and physician. All members of the team are in agreement. 15:37:24 Right groin site verified by team. 15:37:26 Physical assessment completed. ASA score P 2 - A patient with mild systemic disease as per Jonah Arce MD. 15:37:28 Sedation plan: IV Moderate Sedation Medication:Versed, Fentanyl 15:37:58 Procedure started. 15:38:00 Local anesthetic to right femoral artery with Lidocaine 2% by Jonah Arce MD.INITIAL ACCESS ONLY 15:38:11 Fentanyl 50 mcg I.V. was administered by Maxwell Wallace RN; for sedation; 15:38:16 Versed 1 mg I.V. was administered by Maxwell Wallace RN; for sedation; 15:40:14 Fentanyl 50 mcg I.V. was administered by Maxwell Wallace RN; for sedation; 15:40:17 Versed 1 mg I.V. was administered by Maxwell Wallace RN; for sedation; 15:41:19 A 5 Fr sheath was inserted into the Right Femoral artery 15:43:05 Fentanyl 50 mcg I.V. was administered by Maxwell Wallace RN; for sedation; 15:44:01 A Cordis 5Fr Pigtail Catheter (MP) was advanced over the wire and used for Procedure. 15:45:52 LV gram done using TATUM 15:45:54 Injector settings: Ml/sec: 10, Volume: 20, 15:45:58 EF : 60 % 15:46:00 Catheter removed. 15:46:04 A Cordis 5Fr JL 4.0 Catheter (MP) was advanced over the wire and used for Procedure. 15:46:08 LCA angiography performed. 15:46:09 Catheter removed. 15:46:13 A Cordis 5Fr 3DRC Catheter (MP) was advanced over the wire and used for Procedure. 15:46:16 RCA angiography performed. 15:46:18 Catheter removed. 15:46:23 Terumo 6Fr [place] Sheath opened to sterile field. 15:46:38 [place] [email or web address] Choice PT Extra Support 182cm wire opened to sterile field. 15:46:42 Merit BasixCompak Inflation Kit opened to sterile field. 15:47:38 Sheath upsized to a 6 Fr Short. 15:48:09 Merit BasixCompak Inflation Kit opened to sterile field. 15:48:22 Fentanyl 50 mcg I.V. was administered by Maxwell Wallace RN; for sedation; 15:48:24 Cordis 6FR XBLAD 3.5 guide catheter opened to sterile field. 15:48:31 6 Fr xblad 3.5 guide catheter was inserted over the wire 15:48:36 Heparin Bolus 4000 units I.V. was administered by Maxwell Wallace RN; for anticoagulation; 15:48:36 choice pt es wire advanced. 15:48:41 Wire advanced across lesion. 15:50:00 Inflation Number: 1 A 5 Screens Mediatronic Integrity Rx 3.0 x 12 stent was prepped and advanced across the Ramus. The stent was deployed at 13 WLOFGANG for 0:10 (min:sec). 15:50:01 Stent catheter was removed intact over wire. 15:50:02 Wire removed. 15:50:02 Guide catheter removed. 15:50:34 Cordis 6Fr Exoseal opened to sterile field. 15:50:40 Sheath removed intact; hemostasis achieved with Exoseal to the Right Femoral artery. 15:50:41 Procedure ended.(Physican Out) 15:54:06 Fluoroscopy time 85.00 minutes. 15:55:28 Fluoroscopy dose: 332.48 mGy 15:55:28 Flurop Dose total: 332.48 15:55:41 Contrast amount:Isovue 300 85ml. 15:55:46 Sharps counted by scrub and verified by R.N. 15:55:50 Insertion/operative site no bleeding no hematoma. 15:55:52 Post-op/insertion site Right Femoral artery dressed using a 4 x 4 and Tegaderm. 15:56:01 Post right femoral artery:stable, soft, clean and dry 15:56:03 Post Procedure Pulses reassessed and unchanged 15:56:05 Post-procedure physical assessment completed. ASA score P 2 - A patient with mild systemic disease as per Jonah Arce MD. 15:56:07 Post procedure rhythm: unchanged. 15:56:08 Estimated blood loss: 10 ml 15:56:10 Post procedure instruction explained to patient.Patient verbalizes understanding. 15:56:10 Patient needs reinforcement of post procedure teaching. 15:56:20 Procedure type changed to Cath procedure, Diagnostic procedure, LHC, LHC w/Coronaries, PCI procedure, Coronary Stent, Coronary Stent Initial, Miscellaneous Procedures, Moderate Sedation up to 15 minutes 15:57:03 Procedure and supply charges have been captured, reviewed, submitted and are correct. 15:57:06 Procedure Complication : No complications 15:57:08 Vital chart was stopped 15:57:08 See physician's report for complete and final results. 15:57:15 Report given to PCU. 15:57:19 Patient transfered to PCU with Stretcher. 15:57:21 Procedure ended. 15:57:21 Full Disclosure recording stopped 15:58:09 End room use (Document Last) Intervention Summary Intervention Notes Time ActionType Lesion and Equipment Action# Pressure Duration Attributes Used 15:50:00 Place stent Ramus Medtronic 1 13 00:10 Integrity Rx 3.0 x 12 stent Device Usage Item Name Manufacture Quantity Catalog Number Hospital Part Current Minim al Lot# / Charge Number Stock Stock Serial# Code Tegaderm 4 3M 1 1626W 242201 021812 963471 5 x 4 Acist Hand Acist 1 90439 981174 570044 357078 5 Control Medical Systems Inc Acist Acist 1 59544 859468 128319 791672 5 Manifold Medical Systems Inc Acist Acist 1 73911 266890 306397 394420 20 Syringe Medical Systems Inc Bag Microtek 1 2002S 292311 36396 952235 5 DecLoopster. Medline Cardinal 1 [id number] 681626 77181 263514 5 Cath YaKlass Terumo 5Fr Terumo 1 IRF350 380366 148264 821822 [address] Ajith 1 616231 831921 609872 786926 30 260cm J .035 wire Diagnostic Cardinal 1 [id number] 077314 47000 791593 30 Infinity Health 5Fr Multipack catheter Cordis 5Fr Cardinal 1 798846 5 Pigtail Health Catheter (MP) Cordis 5Fr Cardinal 1 314428 5 JL 4.0 Health Catheter (MP) Cordis 5Fr Cardinal 1 032987 5 3DRC Health Catheter (MP) Terumo 6Fr Terumo 1 [id number] 971324 278072 749935 40 [place] Sheath [place] Sci [place] 1 [id number] 668628 943736 110131 5 Choice PT Scientific Extra Support 182cm wire Merit Merit 2 AO6620 659249 601263 354687 15 GFS IT Medical Inflation Kit Cordis 6FR Cardinal 1 [id number] 327748 845066 036756 10 XBLAD 3.5 Health guide catheter Medtronic Medtronic 1 [id number] 941474 227093 040196 5 [id number] Integrity Rx 3.0 x 12 stent Cordis 6Fr Cardinal 1 EX600 266010 816938 897700 10 [facility] [employer] Signature Audit [place] Stage Time Signature Unsigned Intra-Procedure 09/17/2017 Javier Hatfield 3:59:14 PM RT(R) Signatures Monitor : Javier Hatfield RT Signature : Date : Time : [id number] [place] [address]
[2017-09-17 11:10] LABS: BASOPHILS 0.1 % (0-2); HEMATOCRIT 33.1 % (36.0-48.0); HEMOGLOBIN 11.1 g/dL (12-16); IMMATURE GRANULOCYTES 0.1 % (0-5); LYMPHOCYTES 31.3 % (15-50); MCH 32.4 pg (26.0-34.0); MCHC 33.5 g/dL (31.0-37.0); MCV 96.5 fL (80.0-100.0); MEAN PLATELET VOLUME 9.7 fL (7.4-10.4); MONOCYTES 4.9 % (2-11); NEUTROPHILS 60.6 % (40-80); PLATELET COUNT 238 10x3/uL (130-400); RBC 3.43 10x6/uL (4.00-5.40); RDW 13.9 % (11.5-14.5)
[2017-09-17 11:38] LABS: ALBUMIN 3.4 g/dL (3.4-5.0); ALKALINE PHOSPHATASE 139 U/L (46-116); ALT (SGPT) 26 U/L (10-68); BILIRUBIN - TOTAL 0.54 mg/dL (0.2-1.3); CALC OSMOLALITY 289 mosm/kg (275-300); CALCIUM 7.4 mg/dL (8.5-10.1); CARBON DIOXIDE 28.6 mmol/L (21.0-32.0); CHLORIDE - SERUM 98 mmol/L (98-107); CHOL - HDL RATIO 3.8 ratio (2.3-4.1); CHOLESTEROL, TOTAL 132 mg/dL (0-200); CKMB 0.8 U/L (0.0-3.6); CREATINE KINASE 204 UL (21-215); CREATININE - SERUM 5.5 mg/dL (0.6-1.3); GLUCOSE 290 mg/dL (74-106); HDL CHOLESTEROL 35 mg/dL (32-96); POTASSIUM - SERUM 3.8 mmol/L (3.5-5.1); PROTEIN - SERUM 8.5 g/dL (6.4-8.2); SODIUM 138 mmol/L (136-145); TRIGLYCERIDE 472 mg/dL (30-200); UREA NITROGEN 22 mg/dL (7-18); eGFR NON AFRICAN AMERICAN 8 mL/min (90-120)
[2017-09-17 11:42] LABS: TROPONIN-I 0.238 ng/mL (0.000-0.060)
--- NOTE | 2017-09-17 14:14 | HP ---
PATIENT: NEISHA TORO MEDICAL RECORD: [id number] ACCOUNT: [id number] LOCATION:[facility] : 62 ADMISSION DATE: 09/17/17 HISTORY AND PHYSICAL EXAMINATION DIAGNOSES: 1. Non-Q-wave myocardial infarction. 2. Unstable angina. 3. Coronary artery disease. 4. Previous percutaneous transluminal coronary angioplasty stent. 5. Hypertension. 6. Hyperlipidemia. 7. End-stage renal failure on dialysis. HISTORY OF PRESENT ILLNESS: Mrs. Toro after dialysis today developed severe chest pain. Her last cardiac stent was 1 year ago. Her troponin is positive for a myocardial infarction. She has continued to have pain. PHYSICAL EXAMINATION: GENERAL APPEARANCE: Well-nourished, well-developed, appears stated age. Level of distress, comfortable. PSYCHIATRIC: Mental status, alert, normal affect. Orientation, oriented to time, place and person. EYES: Lids and conjunctiva, noninjected. No discharge, no pallor. ENT: Lips, teeth, gums, normal dentition. Oropharynx, no cyanosis, no pallor. NECK: Carotid arteries, bilateral normal upstroke, no bruits, no thrills. JUGULAR VEINS: No jugular venous pressure or distention. CERVICAL LYMPH NODES: Nontender, nonenlarged. THYROID: Not enlarged. Nontender. No nodules. LUNGS: Respiratory effort, unlabored. CHEST: Normal curvature. No thoracic deformity. No chest wall tenderness. Percussion, resonant. Auscultation, clear. No wheezes, no rales, no rhonchi. CARDIOVASCULAR: Precordial exam, nondisplaced. No heaves or pericardial thrills. Rate and rhythm, regular. Heart sounds, normal S1, normal S2. No S3, no gallop, no rub. Systolic murmur, not heard. Diastolic murmur, not heard. EXTREMITIES: No cyanosis, no edema. Peripheral pulses, full and equal in all extremities, except as noted. No bruits appreciated. ABDOMEN: Soft, nondistended. Normal aorta. No bruit. Nontender. No masses. Liver, nontender, no hepatomegaly. Spleen, nontender, no splenomegaly. MUSCULOSKELETAL: No joint tenderness. No joint swelling. No erythema. NEUROLOGICAL: Normal gait, normal strength, normal tone. SKIN: Warm and dry. REVIEW OF SYSTEMS: The patient reports easy bruising but reports no swollen glands. The patient reports no fever, no night sweats, no significant weight gain, no significant weight loss. No significant exercise tolerance. The patient reports no dry eyes, no irritation, no vision change. Patient reports no difficulty hearing and no ear pain. Patient reports no frequent nose bleeds or nose and sinus problems. Patient reports on arm pain on exertion. No shortness of breath while lying down. No history of heart murmur. Patient reports no cough, no wheezing or coughing up blood. Patient reports no abdominal pain, no vomiting. Normal appetite. No diarrhea and not vomiting blood. No nausea and no constipation. Patient reports no incontinence. No difficulty urinating. No hematuria. No increased frequency. Patient reports no muscle aches. No weakness, no arthralgias, no back pain. No swelling of the HISTORY AND PHYSICAL [id number] NEISHA TORO extremities. Patient reports no abnormal mole, no jaundice, no rashes. Reports no loss of consciousness. No weakness and no numbness. No seizures, dizziness, or headaches. The patient reports no depression, no sleep disturbance, feeling safe in a relationship and no alcohol abuse. Patient reports on fatigue. Reports no runny nose or sinus pressure. No itching, no hives, and no frequent sneezing. OVERALL IMPRESSION: Unstable acute angina with acute coronary syndrome and elevated troponin. We will proceed with coronary angiography. Further care depends upon findings of the angiography. TRANSINT:[id number] Voice Confirmation ID: [id number] DOCUMENT ID: [id number] YOKASTA TURNER MD at 1414 CC: [id number] DICTATION DATE: 09/17/17 1220 DRUM REEL CUTTER: 09/17/17 1230 REG [facility] [address] [id number]
[2017-09-17] MEDS ORDERED: NORCO 7.5/325 T1 TA1 PO (17:46)
[2017-09-17 17:48] VITALS: BP 138/56; Ht 165.1 cm; Wt 119.4 kg
--- NOTE | 2017-09-17 18:05 | NUR ---
PT CAME BACK FROM [place] AND RN SHITAL REC'D HER BUT SHE WASNT IN THE COMPUTER YET. NOW DID PTS WHOLE ADMISSION WORKUP AND IN COMPUTER. PT A&O LYING FLAT AND VERBALIZED UNDERSTANDING TO REMAIN FLAT X4 HOURS. AMMON ESPOSITO IS CDI, NO S/S OF BLEEDING OR HEMATOMA NOTED. PERIPHERAL PULSES INTACT. VSS AND BEING MONITERED. FAMILY AT BEDSIDE. NO CURRENT NEEDS. WILL CPOC.
--- NOTE | 2017-09-17 18:25 | NUR ---
PT C/O PAIN AND WAS PROVIDED WITH PRN DEMEROL. PT VOICED THANKS AND IS RESTING QUIETLY IN BED WITH LEGS FLAT STILL. PERIPHERAL PULSES INTACT. VSS. R.GROIN DRSG CDI NO S/S OF HEMATOMA OR BLEEDING NOTED. WILL CPOC.
--- NOTE | 2017-09-17 19:36 | NUR ---
PT LAYING FLAT IN BED. PT ASKED TO GET UP. EDUCATED PT THAT SHE MUST LAY FLAT UNTIL 2100. PT VERBALIZED UNDERSTANDING. PT ALSO C/O PAIN. PT DEMEROL AVALIBLE AT 2200. FAMILY IN ROOM AT BEDSIDE. PT DENIES ANY NEEDS. BED LOW AND CALL LIGHT IN REACH. WILL CPOC
[2017-09-17 20:00] VITALS: BP 155/76
--- NOTE | 2017-09-17 22:46 | NUR ---
PAIN MED GIVEN FOR PAIN IN BACK PT UP TO RESTROOM WITH NO ASSIST. GAIT STEADY; FAMILY IN ROOM. PT LAYING DOWN. DENIES ANY OTHER NEEDS. NO S/S OF DISTRESS. WILL CPOC
[2017-09-18] VITALS: BP 140/62
[2017-09-18 04:00] VITALS: BP 157/80
--- NOTE | 2017-09-18 04:44 | NUR ---
PT C/O PAIN. PAIN MED GIVEN, PT SITTING ON SIDE OF BED. STATES CONCERN ABOUT HAVING STAIRS TO GET INTO HOUSE. APPROX 17 STAIRS. WILL STATE CONCERN DURING REPORT. PT DENIES ANY OTHER NEEDS. NO S/S OF DISTRESS. WILLCPOC
[2017-09-18 07:48] VITALS: BP 151/77
--- NOTE | 2017-09-18 08:18 | NUR ---
AM ROUNDS - PT IS IN BED AND APPEARS TO BE SLEEPING AT THIS TIME WITH EQUAL AND NON LABORED BREATHING. MONITOR SHOWING SR, HR80. O2 AT 2L VIA NC. IV TO RIGHT WRIST, SL AT THIS TIME. LEFT ARM RESERVE, AVF. BED AT LOWEST POSITION. CALL JAMES IN USE/REACH. SIDE RAILS UP X2. WILL CONTINUE TO MONITOR
[2017-09-18 12:03] VITALS: BP 158/86
[2017-09-18] MEDS ORDERED: PLAVIX75 MG PO (12:41)
--- NOTE | 2017-09-18 13:54 | NUR ---
D/C - WRITTENA DN VERBAL D/C INSTRUCTIONS GIVEN TO PT. PT STATES THAT SHE HAS 18 STAIRS TO GO UP AND DOWN AT HOME. ASKED PT IS\\F SHE HAD SOMEONE TO HELP HER AT HOME AND PT SAID "NOT REALLY". I ASKED ABOUT THE FEMALE VISITOR THAT HAS BEEN AT BEDSIDE ALL DAY. PT ALSO C/O CHEST DISCOMFORT. HOUSE SUP, DOMENICO, NOTIFIED ABOUT PT'S CHEST PAIN. MONITOR SHOWING SR, HR 84. PAGED DR. MENG. AWAKE CALL BACK. DR. ULRICH CALLED BACK ADN WILL COME SEE THE PT. WILL CONTINEU TO MONITOR
--- NOTE | 2017-09-18 14:16 | NUR ---
PT CAME TO DESK AND SAID THAT SHE COULD NOT WAIT FOR DR. ULRICH TO COME REEVAL HER FOR THE CHEST DISCOMFORT. PT LEFT FLOOR VIA FOOT WITH FAMILY MEMBER. WILL D/C
--- NOTE | 2017-09-18 14:31 | NUR ---
IV TO RIGHT WRIST D/C, CATH TIP INTACT, 2X2 DRESSING APPLIED AND SECURED WITH TAPE. PT TOLERATED WELL. MONITOR REMOVED AND GIVEN BACK TO TELEVISION REPAIRER.
--- NOTE | 2017-09-27 09:02 | OP ---
PATIENT NAME: NEISHA BOO MEDICAL RECORD: [id number] :62 LOCATION:D.CAT ADMISSION DATE: SURGEON: YOKASTA TURNER MD DATE OF OPERATION: 09/17/2017 PROCEDURES: 1. PTCA, stent of ramus intermedius. 2. Left heart catheterization. 3. Selective coronary angiography. 4. Left ventriculogram. INDICATION: Unstable angina. PROCEDURE IN DETAIL: After informed consent was obtained and after a detailed explanation of risks, benefits as well as alternative therapies, the patient elected to proceed with angiogram and angioplasty. The right femoral area was prepped and draped in normal sterile fashion. The right femoral artery was cannulated via modified Seldinger technique with placement of 5-Somali sheath. All catheters exchanged through this sheath. FINDINGS: Left ventriculogram was performed in standard 30-degree TATUM view revealing good cardiac wall motion throughout all segments. Overall ejection fraction estimated at 60%. SELECTIVE CORONARY ANGIOGRAPHY: 1. Left main showed no significant angiographic disease. 2. Left anterior descending has moderate irregularities, but no flow-limiting stenosis. 3. Ramus intermedius has an 85% stenosis in the proximal vessel. 4. Left circumflex elsewise has mild irregularities. 5. The right coronary has moderate irregularities. PTCA STENT OF THE RAMUS INTERMEDIUS: The stent used was a 3.0 x 12 mm Integrity. Result was 0% residual stenosis. OVERALL IMPRESSION: Successful percutaneous transluminal coronary angioplasty stent of the ramus intermedius going from 80% initial stenosis to 0% residual stenosis. Plan for institution of beta blockade. THE PATIENT HAS STATIN INTOLERANCE; hence no statins will be undertaken. TRANSINT:[id number] Voice Confirmation ID: [id number] DOCUMENT ID: [id number] YOKASTA TURNER MD at 0902 CC: [id number] DICTATION DATE: 09/17/17 1558 [address] SUPERVISOR: 09/17/17 1725 [facility] CLI 09/18/[address] [address]
== END 2017-09-18 14:33 | disposition home or self-care (01) ==
LOC: D.CATH 10:28 → D.ER 10:28 → EDSTATUS 12:31 → D.M2 17:19 → D.CATH 09-18 14:33
PROVIDERS: Emergency Medicine
DX: I21.4 Non-ST elevation (NSTEMI) myocardial infarction (principal); I25.110 Atherosclerotic heart disease of native coronary artery with unstable angina pectoris; I10 Essential (primary) hypertension; E78.5 Hyperlipidemia, unspecified; I12.0 Hypertensive chronic kidney disease with stage 5 chronic kidney disease or end stage renal disease; N18.6 End stage renal disease; Z99.2 Dependence on renal dialysis; Z01.812 Encounter for preprocedural laboratory examination

== ENCOUNTER 2017-09-29 14:49 | Inpatient (IN) | payer MEDICARE ==
[~2017-09-29] VITALS: Ht 165.1 cm; Wt 125.1 kg
[~2017-09-29 14:49] MED LIST changes: +NORCO 7.5/325 T1 TA1 PO
[2017-09-29 16:37] LABS: BASOPHILS 0.2 % (0-2); EOSINOPHILS 1.4 % (0-7); HEMATOCRIT 32.6 % (36.0-48.0); HEMOGLOBIN 10.8 g/dL (12-16); IMMATURE GRANULOCYTES 0.5 % (0-5); LYMPHOCYTES 19.6 % (15-50); MCHC 33.1 g/dL (31.0-37.0); MCV 96.4 fL (80.0-100.0); MEAN PLATELET VOLUME 9.7 fL (7.4-10.4); MONOCYTES 7.4 % (2-11); NEUTROPHILS 70.9 % (40-80); PLATELET COUNT 253 10x3/uL (130-400); RBC 3.38 10x6/uL (4.00-5.40); RDW 13.9 % (11.5-14.5); WBC 11.8 10x3/uL (4.8-10.8)
[2017-09-29 16:47] LABS: ALBUMIN 3.6 g/dL (3.4-5.0); ANION GAP 18.5 mmol/L (8-16); BILIRUBIN - TOTAL 0.48 mg/dL (0.2-1.3); CALCIUM 7.8 mg/dL (8.5-10.1); CARBON DIOXIDE 24.3 mmol/L (21.0-32.0); CREATININE - SERUM 9.4 mg/dL (0.6-1.3); POTASSIUM - SERUM 4.8 mmol/L (3.5-5.1); PROTEIN - SERUM 9.5 g/dL (6.4-8.2)
[2017-09-29 17:10] LABS: APPEARANCE CLEAR (CLEAR); COLOR YELLOW (YELLOW); NITRITE NEGATIVE (NEGATIVE)
[2017-09-29 17:11] LABS: BILIRUBIN NEGATIVE (NEGATIVE); GLUCOSE 50 mg/dL (NEGATIVE); KETONE NEGATIVE (NEGATIVE); PROTEIN 2+ mg/dL (NEGATIVE); UROBILINOGEN NORMAL (NORMAL)
[2017-09-29 17:59] LABS: HIV 1 & 2- RAPID SCREEN NEGATIVE (NEGATIVE)
[2017-09-29 18:30] LABS: CREATINE KINASE 320 UL (21-215); PRO BNP 6360 pg/mL (0-125)
[2017-09-29 18:33] LABS: TROPONIN-I 0.205 ng/mL (0.000-0.060)
[2017-09-29 18:34] LABS: CKMB 1.3 U/L (0.0-3.6)
--- NOTE | 2017-09-29 20:51 | NUR ---
PT ARRIVED TO THE FLOOR BY WHEELCHAIR. ASSISTED BY HOSPITAL STAFF. VSS. ORIENTED PT TO NURSE AND FLOOR. DENIES ANY NEEDS AT THIS TIME. BREATHING EVEN AND UNLABORED. BED IN LOW POSITION, CALL LIGHT WITHIN REACH.
[2017-09-29 22:03] VITALS: BP 150/79; BMI 42.9
--- NOTE | 2017-09-29 22:33 | NUR ---
PTS SISTER NOW AT BEDSIDE. SHE STATES SHE PLANS ON STAYING PART OF THE NIGHT. HER NAME IS ROX ETIENNE AND HER PHONE NUMBER IS [phone] AND SHE WISHES TO BE CALLED IF ANYTHING HAPPENS. PT IN NOW RECIEVING HER IV ABX. ATTEMPTED TO GIVE THEM TO HER WHEN SHE ARRIVED ON THE FLOOR BUT SHE STATED SHE WANTED TO WAIT A MINUTE AND NOT BE "HOOKED UP." THEY ARE NOW RUNNING. WILL CTM.
--- NOTE | 2017-09-29 22:40 | NUR ---
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 FAMLIY PRESENT AT BEDSIDE AND STATES THEY WILL LET ME KNOW WHEN THEY LEAVE.
--- NOTE | 2017-09-29 23:29 | NUR ---
PTS BP HIGH AT 190/94. STATES SHE IS IN PAIN AND THAT THE TYLENOL IS NOT HELPING. TAKES HYDROS AT HOME. PAGED PATIENT CARE MANAGER FOR DR. JOHN. AWAITING RETURN PHONE CALL.
--- NOTE | 2017-09-29 23:33 | NUR ---
Dialysis Coordinator: [facility] MWF. AKOSUA MEDRANO.
--- NOTE | 2017-09-30 00:52 | NUR ---
STILL AWAITING CALL BACK. PAGED AGAIN. PT BECAME VERY AGITATED AND BEGAN YELLING. PRN ATIVAN GIVEN.
[2017-09-30 01:58] VITALS: BP 190/94
[2017-09-30 05:10] VITALS: BP 148/78
--- NOTE | 2017-09-30 08:00 | NUR ---
REC'D SITTING ON SIDE OF BED AWAKE AND ALERT. RESP EVEN AND UNLABORE WITH NO DISTRESS NOTED. EXECUTIVE CANDIDATE DEVELOPER EXPRESS NEEDS AND WANTS. C/O BACK PAIN RATING 10/10 ON PAIN SCALE. HAS SCHEDULE NORCO WITH AM MEDICATION. ASSESSMENT COMPLETED. C/L IN REACH AT BEDSIDE.
[2017-09-30 08:10] VITALS: BP 130/65
[2017-09-30 11:16] VITALS: BMI 44.4
[2017-09-30 11:18] VITALS: BP 138/72
[2017-09-30 16:05] VITALS: BP 134/62
--- NOTE | 2017-09-30 19:15 | NUR ---
PT IN BED RESTIG QUIETLY. BREATHING EVEN AND UNLABORED. BED IN LOW POSITION, CALL LIGHT WITHIN REACH. WILL CTM.
--- NOTE | 2017-09-30 19:59 | NUR ---
RECIEVED CALL FROM PTS BROTHER, DEE GUZMAN [phone], AND HE REQUESTED THAT WE DRAW AN AMMONIA LAB AND CBC ON HIS SISTER. WILL PUT THE ORDERS IN FOR AM LABS.
[2017-09-30 20:19] VITALS: BP 146/97
[2017-10-01 00:38] VITALS: BP 143/74
--- NOTE | 2017-10-01 02:29 | NUR ---
PT STATED THAT SHE DID NOT WANT THE LABS HER BROTHER REQUESTED TO BE DRAWN ON HER THIS MORNING. WILL NOT PUT THE ORDERS IN.
[2017-10-01 04:57] VITALS: BP 134/71
[2017-10-01 06:17] LABS: HEPATITIS C ANTIBODY 0.1 (0.0-0.9)
--- NOTE | 2017-10-01 07:58 | NUR ---
AM ROUNDS - PT IN BED AND AWAKE AT THIS TIME. PT TEMP IS 100.0. OFFERED TYLENOL, PT REFUSED AND STATED SHE WANTS HER PAIN MEDS. PAIN MEDS GIVEN. PT STATES SHE DOES NOT FELL LIKE HAVING DIALYSIS UNTIL THIS AFTERNOON. PT IS A LEFT ARM RESERVE, AVF. UP WITH MINIMAL ASSIST. NO FUTHER NEEDS AT THIS TIME. BED AT LOWEST POSITION. CALL JAMES IN USE/REACH. SIDE RAILS UP X2. WILL CONTINUE TO MONITOR
[2017-10-01 08:00] VITALS: BP 125/58
[2017-10-01 12:00] VITALS: BP 114/56
--- NOTE | 2017-10-01 15:25 | NUR ---
PT UP IN CHAIR AT THIS TIME. FIREFIGHTER MARINE IS GETTING V/S AT THIS TIME. NO NEEDS. WILL CONTINUE TO MONITOR
[2017-10-01 16:00] VITALS: BP 111/50
[2017-10-01 20:00] VITALS: BP 158/79
[2017-10-02] VITALS: BP 138/66
[2017-10-02 04:00] VITALS: BP 132/71
[2017-10-02 05:47] LABS: BASOPHILS 0.1 % (0-2); HEMATOCRIT 28.5 % (36.0-48.0); HEMOGLOBIN 9.5 g/dL (12-16); LYMPHOCYTES 17.9 % (15-50); MCHC 33.3 g/dL (31.0-37.0); MEAN PLATELET VOLUME 9.3 fL (7.4-10.4); MONOCYTES 11.2 % (2-11); NEUTROPHILS 66.8 % (40-80); PLATELET COUNT 274 10x3/uL (130-400); RBC 2.97 10x6/uL (4.00-5.40); RDW 13.6 % (11.5-14.5); WBC 12.5 10x3/uL (4.8-10.8)
[2017-10-02 06:19] LABS: ANION GAP 21.5 mmol/L (8-16); CALCIUM 7.4 mg/dL (8.5-10.1); CARBON DIOXIDE 20.3 mmol/L (21.0-32.0); CREATININE - SERUM 11.6 mg/dL (0.6-1.3); PHOSPHOROUS 6.4 mg/dL (2.5-4.9); POTASSIUM - SERUM 4.8 mmol/L (3.5-5.1)
[2017-10-02 08:00] VITALS: BP 116/59
--- NOTE | 2017-10-02 08:00 | NUR ---
ASSESSMENT COMPLETED PER FLOW SHEET. WILL CONTINUE TO MONITOR.
--- NOTE | 2017-10-02 09:43 | NUR ---
TO DIALYSIS VIA W/C AFTER AM CARE COMPLETED.
[2017-10-02 15:46] VITALS: BP 105/71
--- NOTE | 2017-10-02 19:32 | NUR ---
PT IN BED RESTING QUIETLY. BREATHING EVEN AND UNLABORED. BED IN LOW POSITION, CALL LIGHT WITHIN REACH. WILL CTM.
[2017-10-02 20:00] VITALS: BP 149/68
[2017-10-03] VITALS: BP 112/62
[2017-10-03 04:00] VITALS: BP 135/74
--- NOTE | 2017-10-03 07:37 | NUR ---
AM ROUNDS - PT IN BED AND APPEARS TO BE SLEEPING AT THIS TIME WITH EQUALA ND NON LABORED BREATHING. IV TO LEFT FA, SL. RESERVE RIGHT ARM. BED AT LOWEST POSITION. CALL JAMES IN USE/REACH. SIDE RAILS UP X2. WILL CONTINUE TO MONITOR
--- NOTE | 2017-10-03 07:56 | NUR ---
AM ROUNDS - PT IN BED AT THIS TIME. APPEARS TO BE SLEEPING WITH EQUALA ND NON LABORED BREATHING. O2 AT 2L VIA NC. IV TO RIGHT WRIST, SL. BED AT LOWEST POSITION. CALL JAMES IN USE/REACH. SIDE RAILS UP X2. WILL CONTINUE TO MONITOR
[2017-10-03 08:00] VITALS: BP 121/54
[2017-10-03 12:00] VITALS: BP 123/67
--- NOTE | 2017-10-03 13:02 | NUR ---
PT WANT TO TAKE A SHOWER BEFORE HER IV ANTIBIOTICS ARE STARTED.
--- NOTE | 2017-10-03 15:48 | NUR ---
PT SITTING ON THE SIDE OF THE BED. NO NEEDS AT THIS TIME. WILL CONTINEUT O MONITOR.
[2017-10-03 16:00] VITALS: BP 142/76
--- NOTE | 2017-10-03 19:37 | NUR ---
RECEIVED REPORT, WILL ASSUME CARE OF PT, ASKING FOR ICE, PRUNE JUICE, DENIES ANY OTHER NEEDS, BED IS LOW, SRX2, CALL LIGHT IN REACH, WILL CONTINUE PLAN OF CARE
[2017-10-03 21:01] VITALS: BP 145/56
[2017-10-04 00:52] VITALS: BP 156/78
[2017-10-04 05:08] LABS: BASOPHILS 0.2 % (0-2); EOSINOPHILS 4.3 % (0-7); HEMATOCRIT 27.6 % (36.0-48.0); HEMOGLOBIN 9.1 g/dL (12-16); IMMATURE GRANULOCYTES 0.7 % (0-5); LYMPHOCYTES 18.3 % (15-50); MCH 31.3 pg (26.0-34.0); MCV 94.8 fL (80.0-100.0); MEAN PLATELET VOLUME 9.7 fL (7.4-10.4); MONOCYTES 8.4 % (2-11); NEUTROPHILS 68.1 % (40-80); PLATELET COUNT 283 10x3/uL (130-400); RBC 2.91 10x6/uL (4.00-5.40); RDW 13.2 % (11.5-14.5)
[2017-10-04 05:13] LABS: WBC 9.1 10x3/uL (4.8-10.8)
[2017-10-04 05:36] VITALS: BP 148/89
[2017-10-04 05:39] LABS: ANION GAP 15.6 mmol/L (8-16); CALCIUM 7.5 mg/dL (8.5-10.1); CREATININE - SERUM 8.7 mg/dL (0.6-1.3); POTASSIUM - SERUM 5.4 mmol/L (3.5-5.1); VANCOMYCIN - RANDOM 19.6 ug/mL (10.0-20.0)
[2017-10-04 05:42] LABS: CARBON DIOXIDE 25.8 mmol/L (21.0-32.0)
--- NOTE | 2017-10-04 07:10 | NUR ---
AM ROUNDS- PT IN BE, WITH EYES CLOSED, AROUSES EASILY TO VOICE. PT DENIES ANY NEEEDS AT THIS TIME. CALL LIGHT IN REACH, NAD NOTED, WILL CONTINUE PLAN OF CARE.
[2017-10-04 08:42] VITALS: BP 123/64
[2017-10-04 09:09] LABS: HCVGENO - HEP C QUANT HCV Not Detected IU/mL (())
--- NOTE | 2017-10-04 11:45 | NUR ---
PT TRANSFERED TO NUCLEAR MED. VIA WHEELCHAIR, NAD NOTED.
--- NOTE | 2017-10-04 12:40 | NUR ---
PT TRANSFERED BACK TO ROOM 2108 VIA WHEELCHAIR, PT ASKING FOR HER MORNING MEDS. WILL GIVE PT HER AM MEDS AT THIS TIME. PT DENIES ANY OTHER NEEDS AT THIS TIME. RAFAELA ROBLEDO, NAD NOTED, WILL CONTINUE PLAN OF CARE.
--- NOTE | 2017-10-04 13:58 | NUR ---
ADMINISRTERED 25MG OF PHENERGAN PER PT REQUEST. PT TRANSFERED TO DIALYSIS VIA WHEELCHAIR, NAD NOTED.
--- NOTE | 2017-10-04 14:25 | NUR ---
Nutrition follow-up: Diet: Renal ADA PO intake 75-100% of meals Labs reviewed Wt: 276# PO intake good at this time. RDN following.
--- NOTE | 2017-10-04 17:48 | NUR ---
PT REFUSED TO HAVE BLOOD SUGAR CHECKED, BEFORE TAKING HER GLIPIZIDE, PT STATED " I JUST ATE SO, SO GO AHEAD AND GIVE THE GLIPIZIDE WITHOUT CHECKING MY BLOOD SUGAR" PT DENIES ANY NEEDS AT THIS TIME. PT UP TO SIDE OF BED, CALL LIGHT IN REACH, NAD NOTED.
[2017-10-04 17:56] VITALS: Ht 165.1 cm; Wt 125.1 kg
--- NOTE | 2017-10-04 19:17 | NUR ---
RECEIVED REPORT, WILL ASSUME CARE OF PT, PT DENIES ANY NEEDS, BED IS LOW, SRX2, CALL LIGHT IN REACH, WILL CONTINUE PLAN OF CARE
[2017-10-04 20:53] VITALS: BP 148/72
[2017-10-05 00:37] VITALS: BP 112/53
--- NOTE | 2017-10-05 02:39 | NUR ---
ASSESSMENT COMPLETE, SEE FLOWSHEET, PT IS SLEEPING, NO DISTESS NOTICE, BED IS LOW, SRX2, CALL LIGHT IN REACH, WILL CONTINUE PLAN OF CARE
[2017-10-05 04:20] VITALS: BP 124/60
[2017-10-05 05:10] LABS: BASOPHILS 0.2 % (0-2); EOSINOPHILS 3.4 % (0-7); HEMATOCRIT 27.4 % (36.0-48.0); LYMPHOCYTES 18.4 % (15-50); MCH 31.1 pg (26.0-34.0); MCHC 32.8 g/dL (31.0-37.0); MCV 94.8 fL (80.0-100.0); MEAN PLATELET VOLUME 9.4 fL (7.4-10.4); MONOCYTES 8.3 % (2-11); NEUTROPHILS 68.7 % (40-80); PLATELET COUNT 290 10x3/uL (130-400); RBC 2.89 10x6/uL (4.00-5.40); RDW 13.3 % (11.5-14.5); WBC 8.8 10x3/uL (4.8-10.8)
[2017-10-05 05:25] LABS: ANION GAP 16.3 mmol/L (8-16); CALCIUM 7.5 mg/dL (8.5-10.1); CARBON DIOXIDE 26.8 mmol/L (21.0-32.0); CREATININE - SERUM 8.2 mg/dL (0.6-1.3); POTASSIUM - SERUM 5.1 mmol/L (3.5-5.1); VANCOMYCIN - RANDOM 15.8 ug/mL (10.0-20.0)
--- NOTE | 2017-10-05 07:04 | NUR ---
PT UP AD DAVID IN ROOM, RESP EVEN AND UNLABORED. PT DENIES ANY NEEDS AT THIS TIME. CALL LIGHT IN REACH, NAD NOTED, WILL CONTINUE PLAN OF CARE.
[2017-10-05 08:00] VITALS: BP 113/58
--- NOTE | 2017-10-05 08:07 | NUR ---
AM MEDS GIVEN AT THIS TIME. PT WANTS SOMETHING TO HELP HER HAVE A BM. PT DENIES ANY OTHER NEEDS AT THIS TIME. CALL LIGHT IN REACH, SHIVANI NOTED.
--- NOTE | 2017-10-05 10:00 | NUR ---
PT REPORTING UPSET STOMACH AT THIS TIME, REQUESTING PHENERGAN PO. EMAR REVIEWED AND PATIENT WAS GIVEN PHENERGAN REQUESTED. WILL CONTINUE TO MONITOR.
[2017-10-05 12:00] VITALS: BP 124/51
--- NOTE | 2017-10-05 12:00 | NUR ---
PT UP TO SIDE OF BED, FIXING TO EAT LUNCH. PT DENIES ANY NEEDS AT THIS TIME. CALL LIGHT IN REACH, NAD NOTED, WILL CONTINUE PLAN OF CARE.
--- NOTE | 2017-10-05 15:26 | NUR ---
PT IN BED, WITH EYES CLOSED, AROUSES EASILY TO VOICE. PT ASKED ME TO TURN HEATER OFF. PT DENIES ANY OTHER NEEDS AT THIS TIME. CALL LIGHT IN REACH, NAD NOTED.
[2017-10-05 16:00] VITALS: BP 109/53
--- NOTE | 2017-10-05 19:32 | NUR ---
Patient Name: NEISHA BOO Admission Status: ER Accout number: [id number] Admission Date: 09-29-2017 : 1960 Admission Diagnosis:SHORTNESS OF BREATH Attending: FRANCIS JOHN Current LOS: 6 Anticipated DC Date: 10-06-2017 Planned Disposition: Home Primary Insurance: MEDICARE A & B Discharge Planning Comments: * Is the patient Alert and Oriented? Yes 0 * How many steps to enter\exit or inside your home? 17 0 * PCP DR. MOISE 0 * Pharmacy [facility] [place] [address] 0 * Preadmission Environment Home Alone 0 * ADLs Independent 0 * Equipment None 0 * Other Equipment NO MEDICAL EQUIPMENT PROVIDER PREFERENCE 0 * List name and contact numbers for known caregivers / representatives who currently or will assist patient after discharge: ROX BE, SISTER, 0 * Community resources currently utilized Other 0 * Please name any agencies selected above. OUTPATIENT DIALYSIS, [facility], M/W, 0545AM, [facility] MEDICAID TRANSPORATION 0 * Additional services required to return to the preadmission environment? No 0 * Can the patient safely return to the preadmission environment? Yes 0 * Has this patient been hospitalized within the prior 30 days at any hospital? No 0 CM RECEIVED ORDER FOR DISCHARGE PLANNING. CM MET WITH PT IN ROOM TO DISCUSS DISCHARGE PLANNING AND NEEDS. PT REPORTS LIVING AT HOME INDEPENDENTLY AND ALONE IN UPSTAIRS APARTMENT; PT REPORTS STILL BEING ON THE WAITING LIST FOR A DOWNSTAIRS UNIT. PT HAS NO MEDICAL EQUIPMENT AND NO OUTSIDE SERVICES ASSISTING IN THE HOME. PT GOES TO DIALYSIS ON WEDNESDAY AND WEDNESDAYS. PT REPORTS SHE ALWAYS GOES TO DIALYSIS. PT THINKS HER CHEST PAIN AND OXYGEN NEED ARE CAUSED BY SOME PROBLEM WITH RECENT HEART STENT. CM DISCUSSED AVAILABILITY OF HOME HEALTH, REHAB SERVICES AND MEDICAL EQUIPMENT. PT THINKS THAT SHE MIGHT NEED OXYGEN; CM EXPLAINED OXYGEN TESTING REQUIREMENTS. PT REPORTS SHE NEEDS TO GET BACK TO WORK, SHE WORKS 18 HOURS PER WEEK AT THE [employer]. PT DENIES DISCHARGE NEEDS, REPORTS HER SISTER WILL PICK HER UP FOR DISCHARGE HOME. PT REPORTS THAT HER SISTER WOULD LIKE PT TO GO BACK TO SISTER'S HOME, BUT PT IS GOING HOME THIS TIME. IMPORTANT MESSAGE FROM MEDICARE PROVIDED AND EXPLAINED. PT PLANS TO GO HOME AT DISCHARGE, DENIES NEEDS AT THIS TIME. CM WILL ARRANGE ANY HOME OXYGEN NEEDS WITH QUALIFYING TESTING. Road Roller Operator Hot Mix: Killian Jha
[2017-10-05 20:00] VITALS: BP 131/70
[2017-10-06] VITALS: BP 110/62
[2017-10-06 04:00] VITALS: BP 115/61
--- NOTE | 2017-10-06 04:11 | NUR ---
PT IS RESTING WELL IN BED , RESPIRATIONS EVEN AND UNLABORED, CALL LIGHT IN REACH. WILL CONTINUE PLAN OF CARE.
--- NOTE | 2017-10-06 05:26 | NUR ---
PT RESTING COMFORTABLY, NO NEEDS. CONTINUE TO MONITOR CLOSELY.
[2017-10-06 05:33] LABS: BASOPHILS 0.2 % (0-2); EOSINOPHILS 3.2 % (0-7); HEMATOCRIT 26.5 % (36.0-48.0); HEMOGLOBIN 8.7 g/dL (12-16); IMMATURE GRANULOCYTES 1.8 % (0-5); LYMPHOCYTES 18.4 % (15-50); MCH 31.5 pg (26.0-34.0); MCHC 32.8 g/dL (31.0-37.0); MEAN PLATELET VOLUME 9.1 fL (7.4-10.4); MONOCYTES 10.1 % (2-11); NEUTROPHILS 66.3 % (40-80); PLATELET COUNT 309 10x3/uL (130-400); RBC 2.76 10x6/uL (4.00-5.40); RDW 13.5 % (11.5-14.5); WBC 10.6 10x3/uL (4.8-10.8)
[2017-10-06 05:54] LABS: ANION GAP 16.2 mmol/L (8-16); CARBON DIOXIDE 26.9 mmol/L (21.0-32.0); CREATININE - SERUM 9.2 mg/dL (0.6-1.3); PHOSPHOROUS 5.8 mg/dL (2.5-4.9); POTASSIUM - SERUM 5.1 mmol/L (3.5-5.1)
[2017-10-06 06:01] LABS: CALCIUM 6.9 mg/dL (8.5-10.1)
--- NOTE | 2017-10-06 07:45 | NUR ---
AM ROUNDS COMPLETED. INTRODUCED MYSELF TO PT PRIMARY RN FOR TODAYS SHIFT. SHIFT ASSESSMENT COMPLETED. PT MOST LIKELY BEING DISCHARGED TODAY AND VERBALIZED UNDERSTANDING AND STATES SHE IS READY JUST WANTS TO F/U WITH HER BILINGUAL COUNTER SALES RETAIL FOR HER CP EARLIER IN THE WEEK THAT SHE STATES NOONE ADDRESSED. S1S2 HEART SOUNDS NOTED RRR. SR ON TELEMETRY, NO ISSUES NOTED IN MY ASSESSMENT HOWEVER PT HAD A STENT PLACED RECENTLY AND IS CONCERNED. WILL DISCUSS WITH PRIMARY. PT RESTING IN BED AND DENIES ANY CURRENT NEEDS. CL IN REACH, BED IN LOWEST, SIDE RAILS X2. WILL CPOC.
--- NOTE | 2017-10-06 09:55 | NUR ---
PT IS BEING DISCHARGED AND CXR IS TO BE CX PER ANNEMARIE AMAYA APN. KOLE RTR
[2017-10-06 10:31] VITALS: BP 161/83
--- NOTE | 2017-10-06 10:41 | NUR ---
PT WILL BE DISCHARGED LATER AND VERBALIZED UNDERSTANDING. PT SITTING UP IN BED RESTING QUIETLY. DENIES ANY CURRENT PAIN OR NEEDS. CL IN REACH, WILL CPOC.
--- NOTE | 2017-10-06 11:12 | NUR ---
NOTIFIED ANNEMARIE/RAMANDEEP WITH DR. LOPEZ VIA PHONE THAT PT HAS APPEALED DISCHARGE AT THIS TIME.
[2017-10-06] MEDS ORDERED: LYRICA25 MG PO (11:17)
[2017-10-06] MEDS ORDERED: PHOSLO667 MG PO (11:17)
[2017-10-06] MEDS ORDERED: LEVAQUIN250 MG PO (11:17)
--- NOTE | 2017-10-06 12:00 | NUR ---
PT REQUESTED AND WAS PROVIDED WITH PRN PHENERGAN FOR NAUSEA. EXPLAINED TO PT HER PNEUMONIA AND ADMITTING REASON AND HOW IT CAN APPEAR TO BE HEART RELATED HOWEVER THAT CARDIOLOGY DID SEE HER AND SIGNED OFF NOT CARDIAC RELATED PT STATES "OH NOW THAT YOU SAY THAT, I DO REMEMBER THAT, BUT I DID CALL THAT NUMBER THEY GAVE ME FOR IF I WASNT SATISFIED" CASE MANAGEMENT WORKING ON APPEAL. NO CURRENT NEEDS. WILL CPOC.
--- NOTE | 2017-10-06 12:46 | NUR ---
PT STATES SHE NOW UNDERSTANDS WHY SHE WAS ADMITTED BUT IS WORRIED ABOUT HER SISTER RUSHING UP HERE TO PICK HER UP EXPLAINED TO PT THAT SHE DOES NOT HAVE TO BE DISCHARGED BY A CERTAIN TIME AND THAT WE WILL NOT DISCHARGE HER UNLESS SHE IS WANTING TO R/T THE APPEAL HER DISCHARGE IS ACTUALLY ON HOLD UNTIL THAT PROCESS IS COMPLETED. PT VERBALIZED UNDERSTANDING AND STATES SHE WILL DECIDE WITH HER FAMILY AND TRANSPORTATION WHEN SHE WILL BE READY AND WANTS TO ACTUALLY LEAVE. NO FURTHER NEEDS HANK THIS TIME. WILL CPOC.
--- NOTE | 2017-10-06 12:51 | NUR ---
RECEIVED EMAIL NOTIFICATION THAT THE PATIENT IS APPEALING HER DISCHARGE. DETAILED NOTICE OF DISCHARGE WAS PREPARED AND PRESENTED TO THE PATIENT WITH HER BEDSIDE NURSE CHICHI AQUINO RN AT BEDSIDE. DISCUSSED THE APPEALS PROCESS, THE SUMMARY OF CURRENT MEDICAL CONDITION, THAT SHE WOULD NOT BE DISCHARGED UNTIL ALL INFORMATION HAS BEEN SENT TO [facility] AND THEY HAVE HAD TIME TO REVIEW IT AND DETERMINE IF IT IS A SAFE DISCHARGE. EXPLAINED THAT THE ONLY WAY SHE WOULD BE ABLE TO DISCHARGE BEFORE THIS IS IF SHE ALONE DECIDED SHE WANTED TO BE DISCHARGED. EXPLAINED THAT THE PROCESS COULD TAKE HOURS TO DAYS. SHE STATED THAT HER SISTER HAS TO BE TO WORK AT 3PM AND THERE IS NO WAY THAT SHE WILL BE ABLE TO COME GET HER AND SHE IS THE ONLY FAMILY THAT SHE HAS. I EXPLAINED TO HER THAT THAT WAS OK, AGAIN EXPLAINED THAT HER DISCHARGE WAS ON HOLD AT THIS TIME. WE REREVIEWED PRESLEY IMPORTANT MESSAGE FROM MEDICARE AND ALL QUESTION WERE ANSWERED PROIR TO LEAVING THE ROOM TO COPY THE PATIENTS CHART TO SEND. COPY OF CHART TAKEN TO YENNIFER IN THE CASE MANAGEMENT OFFICE FOR FAXING. WILL AWAIT THE DECISION.
[2017-10-06 13:23] VITALS: BP 117/66
--- NOTE | 2017-10-06 15:01 | NUR ---
Patient Name: NEISHA BOO Encounter No: [id number] : 1960 Primary Insurance: MEDICARE A & B Anticipated DC Date: 10-06-2017 Planned Disposition: Home DCP follow-up note: PT CAME TO NURSES STATION, ASKED TO SEE CM. PT REPORTS SHE WANTS TO STOP THE APPEAL AND JUST GO HOME. PT EXPRESSED CONCERN SHE WILL BE BILLED FOR ADDITIONAL DAYS IN HOSPITAL. CM EXPLAINED THAT PT IS NOT RESPONSIBLE FOR ANYTHING MORE THAN HER REGULAR COPAYS AND DEDUCTIBLES DURING THE APPEAL PROCESS. PT AGAIN REPORTS SHE WANTS TO DISCHARGE HOME, HAS CALLED HER SISTER TO PICK HER UP. CM DISCUSSED HOME HEALTH ORDER AND HOME HEALTH SERVICES AVAILABILITY. 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 CM SPOKE TO CM ASSISTANT AUTO CENTER MANAGER ALMA WHO ADVISED CM TO CALL [facility]. CM CALLED [facility] AT [phone], OPTIONS 4 AND 3, SPOKE TO LORENA WHO ADVISED THAT PT WILL HAVE TO CALL AND CANCEL THE APPEAL HERSELF. RAYMOND SPOKE TO PT IN ROOM WHO IMMEDIATLY CALLED [facility] AND REQUESTED CANCELLATION OF THE APPEAL. PT DENIES DISCHARGE NEEDS, REQUESTED TO GO HOME NOW, REPORTS HER SISTER WILL PICK HER UP. CM CALLED AND NOTIFIED RENAL NURSE ANNEMARIE. DIRECTOR OF SPA AND GUEST EXPERIENCE NURSE NOTIFIED. Killian Jha, CASE MANAGEMENT
[2017-10-06 17:10] VITALS: BP 137/74
--- NOTE | 2017-10-06 17:20 | NUR ---
DISCHARGE TEACHING PROVIDED AND PAPERS SIGNED. PT VERBALIZED UNDERSTANDING AND NEW MEDICATION TEACHING WAS PROVIDED. PT DENIES ANY QUESTIONS OR CONCERNS AND HER SISTER IS ON HER WAY FOR TRANSPORTATION. PT IS COLLECTING HER BELONGINGS NOW AND GETTING DRESSED AND DENIES ANY NEED FOR HELP. NO FURTHER NEEDS.
--- NOTE | 2017-10-06 17:55 | NUR ---
PT NOW LEAVING, ALL BELONGINGS WITH HER. NO QUESTIONS OR CONCERNS.
--- NOTE | 2017-10-08 07:08 | DS ---
PATIENT:NEISHA TORO :[birth year] MEDICAL RECORD: [id number] DISCHARGE SUMMARY ADMISSION DATE: 09/29/17 DISCHARGE DATE: 10/06/17 HISTORY: Ms. Toro is a 56-year-old black female with end-stage renal disease, only dialyzes twice weekly since she declines a third dialysis. She has chronic nausea and vomiting and is admitted with progressive weakness of her lower extremities as well as recurrent nausea and vomiting. HOSPITAL COURSE: The patient's lower extremity issues were felt to be on the basis of her chronic neuropathy, diabetic origin. Her nausea and vomiting seen by GI and did not have an EGD. Her gastric emptying scan was positive. She declined Reglan therapy and opted to continue p.r.n. Phenergan and PPI for this. She underwent acute dialysis, but declined recurrent dialysis for her volume and at the time of discharge was requesting discharge since her overall condition is improved. She did have a possible pneumonia, treated with IV followed by oral antibiotics and was on oral Levaquin at the time of discharge. DISCHARGE DIAGNOSES: 1. Possible pneumonia, is treated with antibiotic therapy. 2. Diabetic neuropathy. 3. Diabetic gastroparesis. 4. End-stage renal disease. 5. Hypertension. 6. Chronic dialysis. PLAN: The patient will continue her dialysis twice weekly as per her request. She has declined Reglan therapy. She will finish out her antibiotic therapy for pneumonia. She will continue her dialysis schedule renal diet, ambulation as tolerated. DISCHARGE MEDICATIONS: Lactulose 15 cc t.i.d.; Colace 1 b.i.d.; Levaquin 250 daily for 3 more days. She will have [facility] as an outpatient. Phenergan p.r.n.; Lyrica 25 b.i.d. for her neuropathy; glipizide 5 mg b.i.d.; Synthroid 200 mcg daily; Renagel 200 t.i.d.; PhosLo 1 t.i.d.; Norvasc 5 b.i.d.; Coreg 25 b.i.d.; Plavix 75 daily. TRANSINT:[id number] Voice Confirmation ID: [id number] DOCUMENT ID: [id number] ZEYAD LOPEZ MD at 0708 CC: [id number] DICTATION DATE: 10/06/1738 HOSIERY REPAIRER: 10/06/17 2304 DIS IN 10/06/17 [facility] [address] [place] [address]
--- NOTE | 2017-10-12 12:15 | CN ---
PATIENT NAME:NEISHA BOO MEDICAL RECORD: [id number] : [birth year] LOCATION:D. D.2108 ADMIT DATE: 09/29/17 ACCOUNT: [id number] CONSULTING PHYSICIAN: YOKASTA TURNER MD REFERRING PHYSICIAN: FRANCIS JOHN MD DATE OF CONSULTATION: 10/04/2017 CARDIOLOGY CONSULTATION DIAGNOSES: 1. Chest pain. 2. Shortness of breath. 3. Dyspnea on exertion. 4. Pneumonia. 5. End-stage renal dysfunction on dialysis. 6. Hypertension. 7. Coronary artery disease, previous percutaneous transluminal coronary angioplasty stent. 8. Diabetes. HISTORY OF PRESENT ILLNESS: Mrs. Boo presents with shortness of breath, dyspnea on exertion and some chest pain. She, however, was found to have pneumonia. She is status post PTCA stent 1 month ago. Troponin is normal. EKG is without any changes. She is, as well, confused with pneumonia. She has end-stage renal failure on dialysis, has hypertension on carvedilol. PHYSICAL EXAMINATION: GENERAL APPEARANCE: Well-nourished, well-developed, appears stated age. Level of distress, comfortable. PSYCHIATRIC: Mental status, alert, normal affect. Orientation, oriented to time, place and person. EYES: Lids and conjunctiva, noninjected. No discharge, no pallor. ENT: Lips, teeth, gums, normal dentition. Oropharynx, no cyanosis, no pallor. NECK: Carotid arteries, bilateral normal upstroke, no bruits, no thrills. JUGULAR VEINS: No jugular venous pressure or distention. CERVICAL LYMPH NODES: Nontender, nonenlarged. THYROID: Not enlarged. Nontender. No nodules. LUNGS: Respiratory effort, unlabored. CHEST: Normal curvature. No thoracic deformity. No chest wall tenderness. Percussion, resonant. Auscultation, clear. No wheezes, no rales, no rhonchi. CARDIOVASCULAR: Precordial exam, nondisplaced. No heaves or pericardial thrills. Rate and rhythm, regular. Heart sounds, normal S1, normal S2. No S3, no gallop, no rub. Systolic murmur, not heard. Diastolic murmur, not heard. EXTREMITIES: No cyanosis, no edema. Peripheral pulses, full and equal in all extremities, except as noted. No bruits appreciated. ABDOMEN: Soft, nondistended. Normal aorta. No bruit. Nontender. No masses. Liver, nontender, no hepatomegaly. Spleen, nontender, no splenomegaly. MUSCULOSKELETAL: No joint tenderness. No joint swelling. No erythema. NEUROLOGICAL: Normal gait, normal strength, normal tone. SKIN: Warm and dry. OVERALL IMPRESSION: Her symptomatology is noncardiac in etiology at this time and is related to pneumonia. No other cardiac workup treatment is necessary. TRANSINT:[id number] Voice Confirmation ID: [id number] DOCUMENT ID: [id number] CONSULT REPORT [id number] NEISHA BOO, YOKASTA MOSES at 1215 CC: [id number] DICTATION DATE: 10/04/17 1205 WREATH INSPECTOR: 10/04/17 1222 DIS IN 10/06/17 [id number] [place] [address]
== END 2017-10-06 17:56 | disposition home or self-care (01) | DRG 193 ==
LOC: D.ER 14:49 → D.M2 19:37
PROVIDERS: Emergency Medicine; Internal Medicine Nephrology; ADMIT Internal Medicine Nephrology
PROC: 5A1D70Z Performance of Urinary Filtration, Intermittent, Less than 6 Hours Per Day (ICD-10-PCS; principal; 2017-10-01)
DX: J18.9 Pneumonia, unspecified organism (principal); N18.6 End stage renal disease; I13.2 Hypertensive heart and chronic kidney disease with heart failure and with stage 5 chronic kidney disease, or end stage renal disease; I50.9 Heart failure, unspecified; E11.22 Type 2 diabetes mellitus with diabetic chronic kidney disease; Z99.2 Dependence on renal dialysis; E11.40 Type 2 diabetes mellitus with diabetic neuropathy, unspecified; F22 Delusional disorders; E11.43 Type 2 diabetes mellitus with diabetic autonomic (poly)neuropathy; K31.84 Gastroparesis

== ENCOUNTER 2017-11-30 14:51 | Emergency (ER) | payer MEDICARE ==
[~2017-11-30 14:51] MED LIST changes: +LEVAQUIN250 MG PO; +LYRICA25 MG PO
[2017-11-30 16:27] LABS: BASOPHILS 0.2 % (0-2); EOSINOPHILS 3.7 % (0-7); HEMATOCRIT 35.2 % (36.0-48.0); HEMOGLOBIN 11.7 g/dL (12-16); IMMATURE GRANULOCYTES 0.6 % (0-5); LYMPHOCYTES 26.3 % (15-50); MCH 32.1 pg (26.0-34.0); MCHC 33.2 g/dL (31.0-37.0); MCV 96.7 fL (80.0-100.0); MEAN PLATELET VOLUME 9.8 fL (7.4-10.4); MONOCYTES 6.7 % (2-11); NEUTROPHILS 62.5 % (40-80); PLATELET COUNT 254 10x3/uL (130-400); RBC 3.64 10x6/uL (4.00-5.40); RDW 14.1 % (11.5-14.5); WBC 8.5 10x3/uL (4.8-10.8)
[2017-11-30 16:38] LABS: UDS - AMPHET NEGATIVE QUAL (NEGATIVE); UDS - BARB NEGATIVE QUAL (NEGATIVE); UDS - BENZO NEGATIVE QUAL (NEGATIVE); UDS - COCAINE NEGATIVE QUAL (NEGATIVE); UDS - OPIATE POSITIVE QUAL (NEGATIVE); UDS - PCP NEGATIVE QUAL (NEGATIVE); UDS - THC NEGATIVE QUAL (NEGATIVE)
[2017-11-30 16:44] LABS: APPEARANCE CLEAR (CLEAR); BILIRUBIN NEGATIVE (NEGATIVE); COLOR YELLOW (YELLOW); GLUCOSE NEGATIVE (NEGATIVE); KETONE NEGATIVE (NEGATIVE); NITRITE NEGATIVE (NEGATIVE); PROTEIN 1+ mg/dL (NEGATIVE); UROBILINOGEN NORMAL (NORMAL)
[2017-11-30 16:54] LABS: EPITHELIAL CELLS 0-5 /hpf (0-5); RED CELLS - URINE OCC /hpf (0-5); WHITE CELLS - URINE 0-5 /hpf (0-5)
[2017-11-30 16:55] LABS: BACTERIA FEW /hpf (NONE SEEN)
[2017-11-30 16:59] LABS: BILIRUBIN - TOTAL 0.33 mg/dL (0.2-1.3); CALCIUM 7.8 mg/dL (8.5-10.1); CREATININE - SERUM 8.4 mg/dL (0.6-1.3); PROTEIN - SERUM 9.2 g/dL (6.4-8.2)
== END 2017-12-01 10:33 | disposition home or self-care (01) ==
LOC: D.ER 14:51
PROVIDERS: Emergency Medicine
DX: F23 Brief psychotic disorder (principal); R44.3 Hallucinations, unspecified; E11.9 Type 2 diabetes mellitus without complications; N18.6 End stage renal disease

== ENCOUNTER 2018-01-17 09:52 | Emergency (ER) | payer MEDICARE ==
[2018-01-17 10:44] LABS: BASOPHILS 0.4 % (0-2); EOSINOPHILS 6.8 % (0-7); HEMATOCRIT 34.3 % (36.0-48.0); HEMOGLOBIN 11.5 g/dL (12-16); IMMATURE GRANULOCYTES 0.8 % (0-5); LYMPHOCYTES 24.5 % (15-50); MCHC 33.5 g/dL (31.0-37.0); MCV 98.3 fL (80.0-100.0); MEAN PLATELET VOLUME 9.8 fL (7.4-10.4); MONOCYTES 7.5 % (2-11); PLATELET COUNT 235 10x3/uL (130-400); RBC 3.49 10x6/uL (4.00-5.40); RDW 14.1 % (11.5-14.5); WBC 7.2 10x3/uL (4.8-10.8)
[2018-01-17 10:47] LABS: INR 1.06 (0.85-1.17); PROTIME 13.4 SECONDS (11.6-15.0)
[2018-01-17 11:17] LABS: ALBUMIN 3.6 g/dL (3.4-5.0); ALKALINE PHOSPHATASE 125 U/L (46-116); ALT (SGPT) 34 U/L (10-68); CALCIUM 7.3 mg/dL (8.5-10.1); CARBON DIOXIDE 25.4 mmol/L (21.0-32.0); CHLORIDE - SERUM 97 mmol/L (98-107); CKMB 0.8 U/L (0.0-3.6); CREATINE KINASE 232 UL (21-215); LIPASE 319 U/L (73-393); POTASSIUM - SERUM 4.3 mmol/L (3.5-5.1); PRO BNP 5439 pg/mL (0-125); PROTEIN - SERUM 8.6 g/dL (6.4-8.2); SODIUM 137 mmol/L (136-145); UREA NITROGEN 24 mg/dL (7-18); eGFR NON AFRICAN AMERICAN 8 mL/min (90-120)
[2018-01-17 11:25] LABS: CALC OSMOLALITY 288 mosm/kg (275-300); GLUCOSE 292 mg/dL (74-106)
[2018-01-17 11:29] LABS: TROPONIN-I 0.242 ng/mL (0.000-0.060)
[2018-01-17 13:29] LABS: APPEARANCE HAZY (CLEAR); BACTERIA MODERATE /hpf (NONE SEEN); BILIRUBIN NEGATIVE (NEGATIVE); COLOR YELLOW (YELLOW); GLUCOSE 100 mg/dL (NEGATIVE); KETONE NEGATIVE (NEGATIVE); NITRITE NEGATIVE (NEGATIVE); PROTEIN 1+ mg/dL (NEGATIVE); RED CELLS - URINE 0-5 /hpf (0-5); SPECIFIC GRAVITY 1.005 (1.005-1.020); UROBILINOGEN NORMAL (NORMAL)
== END 2018-01-17 14:00 | disposition home or self-care (01) ==
LOC: D.ER 09:52
PROVIDERS: Family Medicine; Nurse Practitioner Family
DX: R07.89 Other chest pain (principal); N64.4 Mastodynia; Z99.2 Dependence on renal dialysis; R11.0 Nausea; N18.6 End stage renal disease

== ENCOUNTER → 2018-02-11 10:22 | Outpatient (CLI) | payer MEDICARE | END | disposition home or self-care (01) | LOC: D.CT 10:22 | DX: R10.9 Unspecified abdominal pain (principal) ==

== ENCOUNTER 2018-06-17 09:56 | Emergency (ER) | payer MEDICARE ==
[~2018-06-17] VITALS: Ht 165.1 cm; Wt 3.3 kg
[2018-06-17 10:01] VITALS: Ht 165.1 cm; Wt 3.3 kg
[2018-06-17 10:56] LABS: BASOPHILS 0.1 % (0-2); EOSINOPHILS 2.4 % (0-7); HEMATOCRIT 32.2 % (36.0-48.0); HEMOGLOBIN 10.6 g/dL (12-16); IMMATURE GRANULOCYTES 0.6 % (0-5); LYMPHOCYTES 19.3 % (15-50); MCH 31.3 pg (26.0-34.0); MCHC 32.9 g/dL (31.0-37.0); MEAN PLATELET VOLUME 10.4 fL (7.4-10.4); MONOCYTES 9.8 % (2-11); NEUTROPHILS 67.8 % (40-80); RBC 3.39 10x6/uL (4.00-5.40); RDW 13.6 % (11.5-14.5)
[2018-06-17 10:58] LABS: PLATELET COUNT 289 10x3/uL (130-400)
[2018-06-17 11:07] LABS: ALBUMIN 2.7 g/dL (3.4-5.0); ANION GAP 13.5 mmol/L (8-16); BILIRUBIN - TOTAL 1.18 mg/dL (0.2-1.3); CALCIUM 8.1 mg/dL (8.5-10.1); CARBON DIOXIDE 29.9 mmol/L (21.0-32.0); CREATININE - SERUM 5.4 mg/dL (0.6-1.3); PROTEIN - SERUM 8.5 g/dL (6.4-8.2)
[2018-06-17 11:11] LABS: POTASSIUM - SERUM 4.4 mmol/L (3.5-5.1)
[2018-06-17 11:14] LABS: COLOR YELLOW (YELLOW)
[2018-06-17 11:15] LABS: AMORPHOUS SEDIMENT >1+ /lpf (NONE SEEN); APPEARANCE CLOUDY (CLEAR); BILIRUBIN NEGATIVE (NEGATIVE); EPITHELIAL CELLS 0-5 /hpf (0-5); GLUCOSE NEGATIVE (NEGATIVE); KETONE NEGATIVE (NEGATIVE); MUCUS >1+ /lpf (NONE SEEN); NITRITE NEGATIVE (NEGATIVE); PROTEIN 3+ mg/dL (NEGATIVE); RED CELLS - URINE 0-5 /hpf (0-5); SPECIFIC GRAVITY 1.015 (1.005-1.020); UROBILINOGEN NORMAL (NORMAL); WHITE CELLS - URINE 0-5 /hpf (0-5)
[2018-06-17 11:31] LABS: TROPONIN-I 0.211 ng/mL (0.000-0.060)
[2018-06-17 12:25] VITALS: BP 146/61
== END 2018-06-17 12:29 | disposition home or self-care (01) ==
LOC: D.ER 09:56
PROVIDERS: Family Medicine
DX: R07.89 Other chest pain (principal); E11.9 Type 2 diabetes mellitus without complications; I12.9 Hypertensive chronic kidney disease with stage 1 through stage 4 chronic kidney disease, or unspecified chronic kidney disease; N18.9 Chronic kidney disease, unspecified; Z99.2 Dependence on renal dialysis; I50.9 Heart failure, unspecified; I42.9 Cardiomyopathy, unspecified; Z85.850 Personal history of malignant neoplasm of thyroid

== ENCOUNTER 2018-06-21 22:01 | Inpatient (IN) | payer MEDICARE ==
[~2018-06-21] VITALS: Ht 165.1 cm; Wt 129.2 kg
[2018-06-21 22:52] LABS: BASOPHILS 0.1 % (0-2); EOSINOPHILS 1.3 % (0-7); HEMATOCRIT 30.3 % (36.0-48.0); HEMOGLOBIN 9.7 g/dL (12-16); IMMATURE GRANULOCYTES 0.6 % (0-5); LYMPHOCYTES 15.5 % (15-50); MCH 30.8 pg (26.0-34.0); MCV 96.2 fL (80.0-100.0); MEAN PLATELET VOLUME 9.9 fL (7.4-10.4); MONOCYTES 13.6 % (2-11); NEUTROPHILS 68.9 % (40-80); RBC 3.15 10x6/uL (4.00-5.40); RDW 13.6 % (11.5-14.5); WBC 9.3 10x3/uL (4.8-10.8)
[2018-06-21 23:02] LABS: INR 1.39 (0.85-1.17); PLATELET COUNT 223 10x3/uL (130-400); PROTIME 16.6 SECONDS (11.6-15.0)
[2018-06-21 23:03] LABS: APTT 46.3 SECONDS (22.8-39.4)
[2018-06-21 23:11] LABS: D-DIMER-QUANTITATIVE 4.86 ug/mLFEU (0.20-0.54)
[2018-06-21 23:18] LABS: ALBUMIN 2.5 g/dL (3.4-5.0); ALKALINE PHOSPHATASE 205 U/L (46-116); ALT (SGPT) 19 U/L (10-68); BILIRUBIN - TOTAL 1.39 mg/dL (0.2-1.3); CALC OSMOLALITY 283 mosm/kg (275-300); CALCIUM 7.4 mg/dL (8.5-10.1); CARBON DIOXIDE 29.7 mmol/L (21.0-32.0); CHLORIDE - SERUM 97 mmol/L (98-107); GLUCOSE 173 mg/dL (74-106); POTASSIUM - SERUM 3.9 mmol/L (3.5-5.1); PROTEIN - SERUM 7.9 g/dL (6.4-8.2); SODIUM 136 mmol/L (136-145); UREA NITROGEN 35 mg/dL (7-18); eGFR NON AFRICAN AMERICAN 5 mL/min (90-120)
[2018-06-21 23:29] LABS: CKMB 0.7 U/L (0.0-3.6); CREATINE KINASE 87 UL (21-215)
[2018-06-21 23:37] LABS: PRO BNP 31254 pg/mL (0-125); TROPONIN-I 0.182 ng/mL (0.000-0.060)
[2018-06-22 01:01] LABS: APPEARANCE HAZY (CLEAR); BILIRUBIN NEGATIVE (NEGATIVE); COLOR DK YELLOW (YELLOW); GLUCOSE NEGATIVE (NEGATIVE); KETONE NEGATIVE (NEGATIVE); NITRITE NEGATIVE (NEGATIVE); PROTEIN 3+ mg/dL (NEGATIVE); SPECIFIC GRAVITY 1.015 (1.005-1.020); UROBILINOGEN NORMAL (NORMAL)
[2018-06-22 01:02] LABS: BACTERIA MODERATE /hpf (NONE SEEN); EPITHELIAL CELLS 0-5 /hpf (0-5); RED CELLS - URINE 0-5 /hpf (0-5); WHITE CELLS - URINE 0-5 /hpf (0-5)
[2018-06-22] MEDS ORDERED: PHENERGAN25 M1 PO (02:37)
[2018-06-22] MEDS ORDERED: REQUIP0.5 MG PO (02:38)
[2018-06-22] MEDS ORDERED: ZYPREXA10 MG PO (02:40)
[2018-06-22 04:21] VITALS: BP 128/68; BMI 42.8
[2018-06-22 05:16] LABS: HEMATOCRIT 28.5 % (36.0-48.0); MCH 30.2 pg (26.0-34.0); MCHC 31.6 g/dL (31.0-37.0); MCV 95.6 fL (80.0-100.0); MEAN PLATELET VOLUME 10.8 fL (7.4-10.4); PLATELET COUNT 235 10x3/uL (130-400); RBC 2.98 10x6/uL (4.00-5.40); RDW 13.8 % (11.5-14.5); WBC 8.5 10x3/uL (4.8-10.8)
[2018-06-22 05:18] LABS: CALCIUM 7.2 mg/dL (8.5-10.1); CARBON DIOXIDE 25.9 mmol/L (21.0-32.0); CREATININE - SERUM 8.1 mg/dL (0.6-1.3); POTASSIUM - SERUM 3.9 mmol/L (3.5-5.1)
[2018-06-22 07:46] LABS: LYMPHOCYTES 7 % (15-50); MONOCYTES 23 % (2-11); NEUTROPHILS 67 % (40-80); PLATELET ESTIMATE NORMAL
[2018-06-22 07:49] LABS: ANISOCYTOSIS OCC
[2018-06-22 09:34] VITALS: BP 138/67
[2018-06-22 12:17] VITALS: Ht 165.1 cm; Wt 129.2 kg
[2018-06-22 12:55] VITALS: BP 94/62
[2018-06-22 17:51] VITALS: BP 151/79
[2018-06-22 20:37] VITALS: BP 102/48
[2018-06-23 00:16] VITALS: BP 116/60
[2018-06-23 05:37] VITALS: BP 98/56
[2018-06-23 06:19] LABS: BASOPHILS 0.1 % (0-2); EOSINOPHILS 1.6 % (0-7); HEMATOCRIT 29.2 % (36.0-48.0); HEMOGLOBIN 9.3 g/dL (12-16); IMMATURE GRANULOCYTES 0.5 % (0-5); LYMPHOCYTES 11.2 % (15-50); MCH 29.7 pg (26.0-34.0); MCHC 31.8 g/dL (31.0-37.0); MEAN PLATELET VOLUME 9.8 fL (7.4-10.4); MONOCYTES 15.5 % (2-11); NEUTROPHILS 71.1 % (40-80); PLATELET COUNT 233 10x3/uL (130-400); RBC 3.13 10x6/uL (4.00-5.40); WBC 9.4 10x3/uL (4.8-10.8)
[2018-06-23 06:20] LABS: MCV 93.3 fL (80.0-100.0)
[2018-06-23 06:48] LABS: ALBUMIN 2.2 g/dL (3.4-5.0); ANION GAP 17.6 mmol/L (8-16); BILIRUBIN - TOTAL 1.57 mg/dL (0.2-1.3); CALCIUM 7.2 mg/dL (8.5-10.1); CARBON DIOXIDE 24.7 mmol/L (21.0-32.0); CREATININE - SERUM 9.1 mg/dL (0.6-1.3); PHOSPHOROUS 5.2 mg/dL (2.5-4.9); POTASSIUM - SERUM 4.3 mmol/L (3.5-5.1); PROTEIN - SERUM 7.2 g/dL (6.4-8.2)
[2018-06-23 16:48] VITALS: BP 129/77
[2018-06-23 20:42] VITALS: BP 160/72
[2018-06-24] VITALS (7 sets, daily range): BP systolic 108–151; BP diastolic 46–68
[2018-06-24 05:32] LABS: BASOPHILS 0.3 % (0-2); EOSINOPHILS 1.3 % (0-7); HEMATOCRIT 28.7 % (36.0-48.0); HEMOGLOBIN 9.3 g/dL (12-16); IMMATURE GRANULOCYTES 0.7 % (0-5); LYMPHOCYTES 18.5 % (15-50); MCH 30.3 pg (26.0-34.0); MCHC 32.4 g/dL (31.0-37.0); MCV 93.5 fL (80.0-100.0); MONOCYTES 18.8 % (2-11); NEUTROPHILS 60.4 % (40-80); PLATELET COUNT 244 10x3/uL (130-400); RBC 3.07 10x6/uL (4.00-5.40); RDW 14.1 % (11.5-14.5); WBC 7.2 10x3/uL (4.8-10.8)
[2018-06-24 06:10] LABS: ANION GAP 19.4 mmol/L (8-16); CALCIUM 7.3 mg/dL (8.5-10.1); CARBON DIOXIDE 21.7 mmol/L (21.0-32.0); CREATININE - SERUM 10.2 mg/dL (0.6-1.3); PHOSPHOROUS 6.2 mg/dL (2.5-4.9); POTASSIUM - SERUM 4.1 mmol/L (3.5-5.1); VANCOMYCIN - RANDOM 9.1 ug/mL (10.0-20.0)
[2018-06-25 05:37] LABS: BASOPHILS 0.3 % (0-2); EOSINOPHILS 1.2 % (0-7); HEMATOCRIT 27.6 % (36.0-48.0); HEMOGLOBIN 8.9 g/dL (12-16); IMMATURE GRANULOCYTES 0.9 % (0-5); LYMPHOCYTES 21.1 % (15-50); MCHC 32.2 g/dL (31.0-37.0); MCV 92.9 fL (80.0-100.0); MEAN PLATELET VOLUME 9.8 fL (7.4-10.4); MONOCYTES 20.9 % (2-11); NEUTROPHILS 55.6 % (40-80); PLATELET COUNT 244 10x3/uL (130-400); RBC 2.97 10x6/uL (4.00-5.40); WBC 7.6 10x3/uL (4.8-10.8)
[2018-06-25 05:40] LABS: ANION GAP 17.6 mmol/L (8-16); CALCIUM 7.5 mg/dL (8.5-10.1); CREATININE - SERUM 8.5 mg/dL (0.6-1.3); POTASSIUM - SERUM 3.6 mmol/L (3.5-5.1); VANCOMYCIN - RANDOM 17.4 ug/mL (10.0-20.0)
[2018-06-25 05:41] LABS: PHOSPHOROUS 4.5 mg/dL (2.5-4.9)
[2018-06-25 06:30] VITALS: BP 114/63
[2018-06-25 09:15] VITALS: BP 132/66
[2018-06-25 17:00] VITALS: BP 140/70
[2018-06-25 20:27] VITALS: BP 108/55
[2018-06-26 01:10] VITALS: BP 118/61
[2018-06-26 05:47] VITALS: BP 120/59
[2018-06-26 08:51] VITALS: BP 122/66
[2018-06-26 12:20] VITALS: BP 124/58
[2018-06-26 16:55] VITALS: BP 145/62
[2018-06-26 20:00] VITALS: BP 99/44
[2018-06-27] VITALS: BP 113/52
[2018-06-27 04:00] VITALS: BP 102/60; BP 177/94
[2018-06-27 04:35] LABS: BASOPHILS 0.2 % (0-2); EOSINOPHILS 1.2 % (0-7); HEMATOCRIT 30.2 % (36.0-48.0); HEMOGLOBIN 9.9 g/dL (12-16); IMMATURE GRANULOCYTES 1.6 % (0-5); LYMPHOCYTES 18.2 % (15-50); MCH 29.8 pg (26.0-34.0); MCHC 32.8 g/dL (31.0-37.0); MONOCYTES 13.2 % (2-11); NEUTROPHILS 65.6 % (40-80); PLATELET COUNT 269 10x3/uL (130-400); RBC 3.32 10x6/uL (4.00-5.40); RDW 14.7 % (11.5-14.5)
[2018-06-27 04:38] LABS: WBC 10.6 10x3/uL (4.8-10.8)
[2018-06-27 04:59] LABS: ANION GAP 21.7 mmol/L (8-16); BILIRUBIN - TOTAL 1.87 mg/dL (0.2-1.3); CALCIUM 8.1 mg/dL (8.5-10.1); CARBON DIOXIDE 21.4 mmol/L (21.0-32.0); PHOSPHOROUS 4.5 mg/dL (2.5-4.9); POTASSIUM - SERUM 4.1 mmol/L (3.5-5.1); PROTEIN - SERUM 7.2 g/dL (6.4-8.2)
[2018-06-27 07:57] VITALS: BP 95/51
[2018-06-27 08:00] VITALS: BP 154/68
[2018-06-27 11:01] VITALS: BP 127/62
[2018-06-28] VITALS: BP 102/49
[2018-06-28 04:33] VITALS: BP 98/52
[2018-06-28 05:25] LABS: BASOPHILS 0.3 % (0-2); EOSINOPHILS 1.2 % (0-7); HEMATOCRIT 27.8 % (36.0-48.0); HEMOGLOBIN 9.2 g/dL (12-16); IMMATURE GRANULOCYTES 2.2 % (0-5); LYMPHOCYTES 20.8 % (15-50); MCH 29.9 pg (26.0-34.0); MCHC 33.1 g/dL (31.0-37.0); MCV 90.3 fL (80.0-100.0); MEAN PLATELET VOLUME 9.6 fL (7.4-10.4); MONOCYTES 15.5 % (2-11); PLATELET COUNT 275 10x3/uL (130-400); RBC 3.08 10x6/uL (4.00-5.40); WBC 9.2 10x3/uL (4.8-10.8)
[2018-06-28 05:52] LABS: ALBUMIN 1.9 g/dL (3.4-5.0); BILIRUBIN - TOTAL 1.74 mg/dL (0.2-1.3); CALCIUM 8.4 mg/dL (8.5-10.1); CREATININE - SERUM 9.8 mg/dL (0.6-1.3); POTASSIUM - SERUM 3.8 mmol/L (3.5-5.1); PROTEIN - SERUM 6.9 g/dL (6.4-8.2)
[2018-06-28 05:53] LABS: ANION GAP 14.8 mmol/L (8-16)
[2018-06-28 07:54] VITALS: BP 145/54
[2018-06-28 11:36] VITALS: BP 113/48
[2018-06-28 15:28] VITALS: BP 108/53
[2018-06-28 20:00] VITALS: BP 115/44
[2018-06-29 04:00] VITALS: BP 135/50
[2018-06-29 07:00] LABS: BASOPHILS 0.3 % (0-2); EOSINOPHILS 1.4 % (0-7); HEMATOCRIT 30.4 % (36.0-48.0); HEMOGLOBIN 10.1 g/dL (12-16); IMMATURE GRANULOCYTES 2.2 % (0-5); LYMPHOCYTES 12.6 % (15-50); MCH 30.1 pg (26.0-34.0); MCHC 33.2 g/dL (31.0-37.0); MCV 90.5 fL (80.0-100.0); MEAN PLATELET VOLUME 9.9 fL (7.4-10.4); MONOCYTES 18.5 % (2-11); PLATELET COUNT 303 10x3/uL (130-400); RBC 3.36 10x6/uL (4.00-5.40); RDW 15.8 % (11.5-14.5)
[2018-06-29 07:11] LABS: WBC 12.9 10x3/uL (4.8-10.8)
[2018-06-29 07:23] LABS: ALBUMIN 2.1 g/dL (3.4-5.0); ANION GAP 19.8 mmol/L (8-16); BILIRUBIN - TOTAL 2.43 mg/dL (0.2-1.3); CALCIUM 8.8 mg/dL (8.5-10.1); CARBON DIOXIDE 24.4 mmol/L (21.0-32.0); CREATININE - SERUM 10.6 mg/dL (0.6-1.3); PHOSPHOROUS 3.7 mg/dL (2.5-4.9); POTASSIUM - SERUM 4.2 mmol/L (3.5-5.1); PROTEIN - SERUM 7.5 g/dL (6.4-8.2)
[2018-06-29 08:51] VITALS: BP 103/51
[2018-06-29 11:32] VITALS: BP 108/71
[2018-06-29 16:03] VITALS: BP 105/50
[2018-06-29 20:00] VITALS: BP 149/75
[2018-06-30 04:00] VITALS: BP 112/58
[2018-06-30 06:58] LABS: BASOPHILS 0.4 % (0-2); EOSINOPHILS 1.5 % (0-7); HEMATOCRIT 26.9 % (36.0-48.0); IMMATURE GRANULOCYTES 2.4 % (0-5); LYMPHOCYTES 22.6 % (15-50); MCHC 33.5 g/dL (31.0-37.0); MCV 89.7 fL (80.0-100.0); MEAN PLATELET VOLUME 9.3 fL (7.4-10.4); MONOCYTES 11.4 % (2-11); NEUTROPHILS 61.7 % (40-80); PLATELET COUNT 279 10x3/uL (130-400); WBC 12.9 10x3/uL (4.8-10.8)
[2018-06-30 07:16] LABS: ALBUMIN 1.8 g/dL (3.4-5.0); ANION GAP 22.2 mmol/L (8-16); BILIRUBIN - TOTAL 2.24 mg/dL (0.2-1.3); CALCIUM 8.4 mg/dL (8.5-10.1); CARBON DIOXIDE 19.7 mmol/L (21.0-32.0); CREATININE - SERUM 11.5 mg/dL (0.6-1.3); POTASSIUM - SERUM 3.9 mmol/L (3.5-5.1); PROTEIN - SERUM 6.8 g/dL (6.4-8.2); VANCOMYCIN - RANDOM 10.4 ug/mL (10.0-20.0)
[2018-06-30 08:13] VITALS: BP 113/62
[2018-06-30 11:52] VITALS: BP 114/55
[2018-06-30 16:29] VITALS: BP 121/54
[2018-06-30 18:47] LABS: APPEARANCE HAZY (CLEAR); BILIRUBIN NEGATIVE (NEGATIVE); COLOR DK YELLOW (YELLOW); GLUCOSE NEGATIVE (NEGATIVE); KETONE NEGATIVE (NEGATIVE); NITRITE NEGATIVE (NEGATIVE); PROTEIN 1+ mg/dL (NEGATIVE); SPECIFIC GRAVITY 1.015 (1.005-1.020); UROBILINOGEN NORMAL (NORMAL)
[2018-06-30 18:48] LABS: BACTERIA MODERATE /hpf (NONE SEEN); EPITHELIAL CELLS 0-5 /hpf (0-5); RED CELLS - URINE 0-5 /hpf (0-5); WHITE CELLS - URINE 0-5 /hpf (0-5); YEAST >1+ /hpf (NONE SEEN)
[2018-06-30 20:14] VITALS: BP 145/69
[2018-07-01 04:00] VITALS: BP 112/67
[2018-07-01 05:44] VITALS: BP 140/61
[2018-07-01 05:59] LABS: ALBUMIN 1.8 g/dL (3.4-5.0); ANION GAP 22.2 mmol/L (8-16); BILIRUBIN - TOTAL 2.11 mg/dL (0.2-1.3); CALCIUM 8.9 mg/dL (8.5-10.1); CARBON DIOXIDE 20.1 mmol/L (21.0-32.0); CREATININE - SERUM 12.5 mg/dL (0.6-1.3); PHOSPHOROUS 4.8 mg/dL (2.5-4.9); POTASSIUM - SERUM 4.3 mmol/L (3.5-5.1); PROTEIN - SERUM 6.9 g/dL (6.4-8.2)
[2018-07-01 07:04] LABS: BASOPHILS 0.2 % (0-2); EOSINOPHILS 1.1 % (0-7); HEMATOCRIT 28.5 % (36.0-48.0); HEMOGLOBIN 9.4 g/dL (12-16); IMMATURE GRANULOCYTES 4.3 % (0-5); LYMPHOCYTES 23.1 % (15-50); MCH 29.7 pg (26.0-34.0); MCV 90.2 fL (80.0-100.0); MONOCYTES 12.8 % (2-11); NEUTROPHILS 58.5 % (40-80); PLATELET COUNT 300 10x3/uL (130-400); RBC 3.16 10x6/uL (4.00-5.40); RDW 16.4 % (11.5-14.5); WBC 12.1 10x3/uL (4.8-10.8)
[2018-07-01 08:50] VITALS: BP 141/63
[2018-07-01 16:55] VITALS: BP 114/57
[2018-07-01 21:22] VITALS: BP 121/63
[2018-07-02 01:07] VITALS: BP 125/55
[2018-07-02 05:02] LABS: BASOPHILS 0.6 % (0-2); EOSINOPHILS 1.1 % (0-7); HEMATOCRIT 28.5 % (36.0-48.0); HEMOGLOBIN 9.3 g/dL (12-16); IMMATURE GRANULOCYTES 2.3 % (0-5); LYMPHOCYTES 17.5 % (15-50); MCH 29.5 pg (26.0-34.0); MCHC 32.6 g/dL (31.0-37.0); MCV 90.5 fL (80.0-100.0); MEAN PLATELET VOLUME 9.6 fL (7.4-10.4); MONOCYTES 18.7 % (2-11); NEUTROPHILS 59.8 % (40-80); PLATELET COUNT 263 10x3/uL (130-400); RBC 3.15 10x6/uL (4.00-5.40); RDW 17.3 % (11.5-14.5); WBC 13.5 10x3/uL (4.8-10.8)
[2018-07-02 05:13] VITALS: BP 115/56
[2018-07-02 05:27] LABS: ALBUMIN 1.8 g/dL (3.4-5.0); BILIRUBIN - TOTAL 2.06 mg/dL (0.2-1.3); CALCIUM 8.5 mg/dL (8.5-10.1); PHOSPHOROUS 4.5 mg/dL (2.5-4.9); POTASSIUM - SERUM 3.9 mmol/L (3.5-5.1); PROTEIN - SERUM 6.7 g/dL (6.4-8.2)
[2018-07-02 05:30] LABS: ANION GAP 15.7 mmol/L (8-16); CARBON DIOXIDE 25.2 mmol/L (21.0-32.0); CREATININE - SERUM 9.3 mg/dL (0.6-1.3)
[2018-07-02 08:21] VITALS: BP 115/54
[2018-07-02 12:52] VITALS: BP 105/54
[2018-07-02 16:40] VITALS: BP 103/64
[2018-07-02 21:20] VITALS: BP 101/43
[2018-07-03 05:47] LABS: BASOPHILS 0.4 % (0-2); EOSINOPHILS 0.8 % (0-7); HEMATOCRIT 26.7 % (36.0-48.0); HEMOGLOBIN 8.8 g/dL (12-16); IMMATURE GRANULOCYTES 1.4 % (0-5); LYMPHOCYTES 15.4 % (15-50); MCH 29.8 pg (26.0-34.0); MCV 90.5 fL (80.0-100.0); MONOCYTES 25.2 % (2-11); NEUTROPHILS 56.8 % (40-80); PLATELET COUNT 282 10x3/uL (130-400); RBC 2.95 10x6/uL (4.00-5.40); RDW 17.8 % (11.5-14.5); WBC 13.8 10x3/uL (4.8-10.8)
[2018-07-03 06:00] VITALS: BP 94/40
[2018-07-03 06:14] LABS: ALBUMIN 1.7 g/dL (3.4-5.0); BILIRUBIN - TOTAL 2.17 mg/dL (0.2-1.3); CALCIUM 8.6 mg/dL (8.5-10.1); CREATININE - SERUM 10.8 mg/dL (0.6-1.3); MAGNESIUM - SERUM 2.3 mg/dL (1.8-2.4); PHOSPHOROUS 4.1 mg/dL (2.5-4.9); PROTEIN - SERUM 6.7 g/dL (6.4-8.2)
[2018-07-03 08:00] VITALS: BP 134/62
[2018-07-03] MEDS ORDERED: REGLAN5 MG PO (11:14)
[2018-07-03] MEDS ORDERED: DIFLUCAN100 MG PO (11:14)
[2018-07-03] MEDS ORDERED: DITROPAN X5 MG/BOTTL PO (11:22)
[2018-07-07 18:11] LABS: OVA + PARASITE EXAM Final report (())
== END 2018-07-03 19:56 | disposition home or self-care (01) | DRG 73 ==
LOC: D.ER 22:01 → D.M2 06-22 01:34 → D.SDCHOLD 06-22 06:37 → D.M2 07-03 19:56
PROVIDERS: Family Medicine; Internal Medicine; Internal Medicine Gastroenterology; Internal Medicine Nephrology
PROC: 5A1D70Z Performance of Urinary Filtration, Intermittent, Less than 6 Hours Per Day (ICD-10-PCS; 2018-06-22)
PROC: 0DB78ZX Excision of Stomach, Pylorus, Via Natural or Artificial Opening Endoscopic, Diagnostic (ICD-10-PCS; 2018-06-24)
PROC: 0DB48ZX Excision of Esophagogastric Junction, Via Natural or Artificial Opening Endoscopic, Diagnostic (ICD-10-PCS; principal; 2018-06-24 07:58)
PROC: 0DBE8ZX Excision of Large Intestine, Via Natural or Artificial Opening Endoscopic, Diagnostic (ICD-10-PCS; 2018-06-29)
PROC: 0DBN8ZZ Excision of Sigmoid Colon, Via Natural or Artificial Opening Endoscopic (ICD-10-PCS; 2018-06-29)
DX: E11.43 Type 2 diabetes mellitus with diabetic autonomic (poly)neuropathy (principal); N18.6 End stage renal disease; I42.9 Cardiomyopathy, unspecified; E87.2 Acidosis; I12.0 Hypertensive chronic kidney disease with stage 5 chronic kidney disease or end stage renal disease; R10.9 Unspecified abdominal pain; R11.2 Nausea with vomiting, unspecified; E11.22 Type 2 diabetes mellitus with diabetic chronic kidney disease; I50.9 Heart failure, unspecified; F32.9 Major depressive disorder, single episode, unspecified; K31.84 Gastroparesis; E03.9 Hypothyroidism, unspecified; K29.70 Gastritis, unspecified, without bleeding; K44.9 Diaphragmatic hernia without obstruction or gangrene; K21.0 Gastro-esophageal reflux disease with esophagitis; K63.5 Polyp of colon; K64.8 Other hemorrhoids; D12.6 Benign neoplasm of colon, unspecified; B34.9 Viral infection, unspecified

== ENCOUNTER 2018-09-30 06:03 | Inpatient (IN) | payer MEDICARE ==
[~2018-09-30] VITALS: Ht 165.1 cm; Wt 117.7 kg
--- NOTE | ~2018-09-30 | DS ---
PATIENT:NEISHA BOO :[birth year] MEDICAL RECORD: [id number] DISCHARGE SUMMARY ADMISSION DATE: 09/30/18 DISCHARGE DATE: HISTORY OF PRESENT ILLNESS: Ms. Boo is a 57-year-old black female with end-stage renal disease, chronic dialysis who only agrees to dialysis twice weekly. She has chronic edema in addition to her chronic other medical problems. She presented to the Emergency Room with the development of fever. Workup in the Emergency Room was essentially negative with regards to chest x-ray and UA and was admitted for the above. HOSPITAL COURSE: She was empirically treated with antibiotic therapy per Dr. Ferrara. Her initial urinalysis and follow up urine culture were negative. Her chest x-ray was negative. She was seen by Dr. Armenta with her history of thyroid cancer and there were no recommendations concerning any changes with regards to that. She had an echocardiogram that was essentially negative with an ejection fraction of 45% to 50%. She underwent more intensive dialysis. She was afebrile throughout the remainder of her hospitalization. White count was normal and cultures were normal at the time of discharge. DISCHARGE DIAGNOSES: 1. Febrile illness of unclear origin. 2. End-stage renal disease, chronic dialysis. 3. History of carcinoma of the thyroid. 4. Hypertension. 5. Chronic anemia. PLAN: The patient will be discharged today. She has agreed to increase her dialysis to 3 times weekly since I believe she has been under dialyzed. She will resume her renal diet. DISCHARGE MEDICATIONS: Will be Epogen as an outpatient, midodrine 5 mg before dialysis, Coreg 3.125 daily, Reglan 5 AC, Renagel 800 mg t.i.d., Requip 0.5 mg h.s., Protonix and/or Pepcid on a p.r.n. basis, Synthroid 200 mcg daily. TRANSINT:[id number] Voice Confirmation ID: [id number] DOCUMENT ID: [id number] ZEYAD LOPEZ MD at 0720 CC: [id number] DICTATION DATE: 10/04/18 0738 POLE TRUCK DRIVER: 10/04/18 2339 ADM IN [id number] [place] [address]
--- NOTE | ~2018-09-30 | MORECARE ---
CASE MANAGEMENT DISCHARGE SUMMARY PATIENT: NEISHA OBO UNIT: [id number] ADM DATE: 09/30/18 AGE: 57 : 62 SEX: F ROOM/BED: D.9909 AUTHOR: SEBASTIAN REYES PHYSICIAN: REFERRING PHYSICIAN: MARTY FERRARA MD DATE OF SERVICE: 10/05/18 Discharge Plan Patient Name: NEISHA BOO Facility: [facility]:[place] : 1960 Planned Disposition: Home Anticipated Discharge Date: 10/05/18 Discharge Date: Expected LOS: 5 Initial Reviewer: [id number] Initial Review Date: 09/30/2018 Generated: 10/05/18 6:42 pm Comments DCP- Discharge Planning Updated by [email or web address]: Killian Jha on 10/05/18 2:[address] Patient Name: NEISHA BOO Encounter No: [id number] : 1960 Primary Insurance: MEDICARE A & B Anticipated DC Date: 10-04-2018 Planned Disposition: Fdc Facility External Planned Provider: [facility] DCP follow-up note: CM SPOKE TO FABIÁN BENNETT, MEDICARE HAS COMPLETED REVIEW AND AGREES WITH DISCHARGE OF PT. CM RECEIVED CALL FROM PT WHO INFORMED CM THAT THEY DISCHARGED HER TODAY AND SHE WANTS REHAB AT [facility] DISCUSSED. CM CALLED TOM, CLINICAL LIAISON FOR [facility], , ASKED FOR ASSESSMENT FOR REHAB ADMISSION TODAY. CM FAXED REFERRAL TO [facility] VIA TOM AT [phone]. TOM ARRIVED AND MET WITH PT IN ROOM, ADVISED CM THEY WILL COMPLETE ADMISSION ASSESSMENT SHORTLY AND PROVIDE ADMISSION DETERMINATION. CM MET WITH PT IN ROOM, PT IN AGREEMENT WITH DISCHARGE TO [facility] FOR REHAB, STATES SHE [place] STEP [place] ONT[place] TO GET TO AND FROM DIALYSIS AND NEEDS REHAB. CM WAITING ADMISSION DETERMINATION FROM [facility] FOR REHAB PLACEMENT. TRELL Deshpande DCP- Discharge Planning Updated by [email or web address]: Marlen Martinez on 10/05/18 12:[address] CM received call from Meche on [place] informing CM that they agreed with MD's decision to discharge. CM notified Tomer Jha and Alie Bennett. DCP- Discharge Planning Updated by [id number]: Killian Jha on 10/04/18 4:[address] Patient Name: NEISHA BOO Admission Status: ER Accout number: [id number] Admission Date: 09-30-2018 : 1960 Admission Diagnosis:SEPSIS, UNSPECIFIED ORGANISM Attending: Marty Ferrara Current LOS: 4 Anticipated DC Date: 10-04-2018 Planned Disposition: Fdc Facility Primary Insurance: MEDICARE A & B Discharge Planning Comments: CM MET WITH PT IN ROOM TO DISCUSS DISCHARGE PLANNING AND NEEDS. PT REPORTS LIVING AT HOME INDEPENDENTLY WITH HER ADULT SISTER; PT HAS NOT BEEN LIVING AT HER OWN APARTMENT DUE TO HAVING 18 STEPS TO CLIMB AT THE APARTMENT AND NONE AT HER SISTERS HOME LOCATED AT [address] [place] [address] IN [place]. PT HAS NO MEDICAL EQUIPMENT AND NO OUTSIDE SERVICES ASSISTING IN THE HOME. PT GOES TO OUTPATIENT [facility], MWF, 0630, [place] [facility]SP[facility]. CM DISCUSSED AVAILABILITY OF HOME HEALTH, REHAB SERVICES AND MEDICAL EQUIPMENT. PT DENIES DISCHARGE NEEDS, DENIES NEED OF REHAB SERVICE,S HOME HEALTH OR MEDICAL EQUIPMENT STATING " I DON'T NEED ANY OF THAT." PT REPORTS FAMILY WILL PICK HER UP FOR DISCHARGE HOME. IMPORTANT MESSAGE FROM MEDICARE PROVIDED AND EXPLAINED. PT STATES SHE IS NOT HAPPY WITH THE DOCTOR DISCHARGING HER AND WANTS THE DOCTOR TO EXPLAIN WHY PT KEEPS GETTING A FEVER. PT STATES THE DOCTOR TOLD HER SHE HAS A FEVER HAVING TO DO WITH HER HAVING DIALYSIS. PT IS CONSIDERING GOING TO A DOCTOR IN [place] TO GET ANSWERS. PT STATES SHE IS CALLING MEDICARE TO APPEAL HER DISCHARGE. CM NOTIFIED CHRISTIAN SCIENCE HEALER NURSE, RN RAMYOND BENNETT AND ANNEMARIE RENAL HYDRAULIC AUTO JACK MECHANIC. CM LATER RECEIVED CALL FROM PT WHO ASKED TO SEE CM AND INFORMED CM THAT SHE LEFT A MESSAGE WITH MEDICARE AND COULDN'T GET A LIVE PERSON TO ANSWER THE PHONE. CM MET WITH PT REQUESTED. PT REPORTS SHE THINKS SHE NEEDS REHAB AND AFTER SPEAKING TO A FAMILY MEMBER, REQUESTED REFERRAL BE FAXED TO [facility] RE[facility]. CHOICE LETTER SIGNED. CM TO FAX REFERRAL TO [facility] FOR REHAB SCREENING SOON POSSIBLE. CM WAITING DISCHARGE DETERMINATION FROM MEDICARE. Infection Prevention Coordinator: Killian Jha DCPIA - Discharge Planning Initial Assessment Updated by [id number]: Killian Jha on 10/04/18 5:46 pm * Is the patient Alert and Oriented? Yes * How many steps to enter\\exit or inside your home? 18 * PCP DR. MOISE * Pharmacy [facility] [address] * Preadmission Environment Home with Family * ADLs Independent * Equipment None * Other Equipment NO MEDICAL EQUIPMENT PROVIDER PREFERENCE * List name and contact numbers for known caregivers / representatives who currently or will assist patient after discharge: VINNY ETIENNE, , * Verbal permission to speak to the caregivers and representatives has been obtained from the patient. N/A * Community resources currently utilized Other * Please name any agencies selected above. OUTPATIENT [facility], MWF, 0630, MEDICAID TRANSPORT BUS * Additional services required to return to the preadmission environment? No * Can the patient safely return to the preadmission environment? Yes * Has this patient been hospitalized within the prior 30 days at any hospital? No Coverage Notice Reviewer: [id number] Jha Notice Issued Date-Time: 10/04/2018 11:45 Notice Type: IM Discharge Notice Notice Delivered To: Patient Relationship to Patient: Hospitality Housekeeper Name: Delivery Method: HAND - Hand Delivered Yuliana Days: Prior Verbal Notification: Recipient Understood Notice: Yes Recipient Signature: Yes Med Rec Note Co-signed by Attending: Coverage Notice Comment: Reviewer: [id number] Jha Notice Issued Date-Time: 10/04/2018 13:00 Notice Type: Patient Choice Letter Notice Delivered To: Patient Relationship to Patient: Hospitality Housekeeper Name: Delivery Method: HAND - Hand Delivered Yuliana Days: Prior Verbal Notification: Recipient Understood Notice: Yes Recipient Signature: Yes Med Rec Note Co-signed by Attending: Coverage Notice Comment: AMIRAH Duong DP export: 10/05/18 2:59 p Patient Name: NEISHA BOO Page [id number] at 1742 All edits/amendments must be made on the electronic document DICTATION DATE: 10/05/181740 HEAD OF HUMAN RESOURCES: CAMILLE 10/05/181740 RPT#: [id number] DC DATE: STATUS: ADM IN [facility] [address] [place] [address] END OF REPORT
--- NOTE | ~2018-09-30 | MORECARE ---
CASE MANAGEMENT DISCHARGE SUMMARY PATIENT: NEISHA BOO UNIT: [id number] ADM DATE: 09/30/18 AGE: 57 : 62 SEX: F ROOM/BED: D.5350 AUTHOR: SEBASTIAN REYES PHYSICIAN: REFERRING PHYSICIAN: MARTY FERRARA MD DATE OF SERVICE: 10/05/18 Discharge Plan Patient Name: NEISHA BOO Facility: [facility]:[place] : 1960 Planned Disposition: Penitentiary Facility Anticipated Discharge Date: 10/04/18 Discharge Date: Expected LOS: 4 Initial Reviewer: [id number] Initial Review Date: 09/30/2018 Generated: 10/05/18 10:08 am Comments DCP- Discharge Planning Updated by [email or web address]: Killian Jha on 10/04/18 4:[address] Patient Name: NEISHA BOO Admission Status: ER Accout number: [id number] Admission Date: 09-30-2018 : 1960 Admission Diagnosis:SEPSIS, UNSPECIFIED ORGANISM Attending: Marty Ferrara Current LOS: 4 Anticipated DC Date: 10-04-2018 Planned Disposition: Penitentiary Facility Primary Insurance: MEDICARE A & B Discharge Planning Comments: CM MET WITH PT IN ROOM TO DISCUSS DISCHARGE PLANNING AND NEEDS. PT REPORTS LIVING AT HOME INDEPENDENTLY WITH HER ADULT SISTER; PT HAS NOT BEEN LIVING AT HER OWN APARTMENT DUE TO HAVING 18 STEPS TO CLIMB AT THE APARTMENT AND NONE AT HER SISTERS HOME LOCATED AT [address] [place] [address] [place]. PT HAS NO MEDICAL EQUIPMENT AND NO OUTSIDE SERVICES ASSISTING IN THE HOME. PT GOES TO OUTPATIENT [facility], MWF, 0630, [place] [facility]. CM DISCUSSED AVAILABILITY OF HOME HEALTH, REHAB SERVICES AND MEDICAL EQUIPMENT. PT DENIES DISCHARGE NEEDS, DENIES NEED OF REHAB SERVICE,S HOME HEALTH OR MEDICAL EQUIPMENT STATING " I DON'T NEED ANY OF THAT." PT REPORTS FAMILY WILL PICK HER UP FOR DISCHARGE HOME. IMPORTANT MESSAGE FROM MEDICARE PROVIDED AND EXPLAINED. PT STATES SHE IS NOT HAPPY WITH THE DOCTOR DISCHARGING HER AND WANTS THE DOCTOR TO EXPLAIN WHY PT KEEPS GETTING A FEVER. PT STATES THE DOCTOR TOLD HER SHE HAS A FEVER HAVING TO DO WITH HER HAVING DIALYSIS. PT IS CONSIDERING GOING TO A DOCTOR IN [place] TO GET ANSWERS. PT STATES SHE IS CALLING MEDICARE TO APPEAL HER DISCHARGE. CM NOTIFIED MANUFACTURER AGENT NURSE, RN RAYMOND BENNETT AND ANNEMARIE RENAL DETAILER PHARMACEUTICALS. CM LATER RECEIVED CALL FROM PT WHO ASKED TO SEE CM AND INFORMED CM THAT SHE LEFT A MESSAGE WITH MEDICARE AND COULDN'T GET A LIVE PERSON TO ANSWER THE PHONE. CM MET WITH PT REQUESTED. PT REPORTS SHE THINKS SHE NEEDS REHAB AND AFTER SPEAKING TO A FAMILY MEMBER, REQUESTED REFERRAL BE FAXED TO [facility]. CHOICE LETTER SIGNED. CM TO FAX REFERRAL TO [facility] FOR REHAB SCREENING SOON POSSIBLE. CM WAITING DISCHARGE DETERMINATION FROM MEDICARE. Supervisor Uranium Processing: Killian Jha DCPIA - Discharge Planning Initial Assessment Updated by [id number]: Killian Jha on 10/04/18 5:46 pm * Is the patient Alert and Oriented? Yes * How many steps to enter\\exit or inside your home? 18 * PCP DR. MOISE * Pharmacy [facility] [address] * Preadmission Environment Home with Family * ADLs Independent * Equipment None * Other Equipment NO MEDICAL EQUIPMENT PROVIDER PREFERENCE * List name and contact numbers for known caregivers / representatives who currently or will assist patient after discharge: VINNY ETIENNE, SISTER, * Verbal permission to speak to the caregivers and representatives has been obtained from the patient. N/A * Community resources currently utilized Other * Please name any agencies selected above. OUTPATIENT [facility], MWF, 0630, MEDICAID TRANSPORT BUS * Additional services required to return to the preadmission environment? No * Can the patient safely return to the preadmission environment? Yes * Has this patient been hospitalized within the prior 30 days at any hospital? No External Providers External Provider: [facility] Next Contact Date: 10/06/2018 Service Request Date: Service Type: Resolution: Reviewer: Comments: Coverage Notice Reviewer: [id number] Jha Notice Issued Date-Time: 10/04/2018 11:45 Notice Type: IM Discharge Notice Notice Delivered To: Patient Relationship to Patient: Vocational Ed Instructor Name: Delivery Method: HAND - Hand Delivered Yuliana Days: Prior Verbal Notification: Recipient Understood Notice: Yes Recipient Signature: Yes Med Rec Note Co-signed by Attending: Coverage Notice Comment: Reviewer: USHA Jha Notice Issued Date-Time: 10/04/2018 13:00 Notice Type: Patient Choice Letter Notice Delivered To: Patient Relationship to Patient: Vocational Ed Instructor Name: Delivery Method: HAND - Hand Delivered Yuliana Days: Prior Verbal Notification: Recipient Understood Notice: Yes Recipient Signature: Yes Med Rec Note Co-signed by Attending: Coverage Notice Comment: AMIRAH Duong DP export: 10/04/18 4:59 p Patient Name: NEISHA BOO Page 47787 at 0909 All edits/amendments must be made on the electronic document DICTATION DATE: 10/05/18907 ADMIRALTY LAWYER: CAMILLE 10/05/18907 RPT#: [id number] DC DATE: STATUS: ADM IN [facility] [address] [place] [address] END OF REPORT
--- NOTE | ~2018-09-30 | MORECARE ---
CASE MANAGEMENT DISCHARGE SUMMARY PATIENT: NEISHA BOO UNIT: [id number] ADM DATE: 09/30/18 AGE: 57 : 62 SEX: F ROOM/BED: D.2104 AUTHOR: SEBASTIAN REYES PHYSICIAN: REFERRING PHYSICIAN: MARTY OSCAR MD DATE OF SERVICE: 10/04/18 Discharge Plan Patient Name: NEISHA BOO [facility] [facility] 1960 Planned Disposition: Shelter Facility Anticipated Discharge Date: 10/04/18 Discharge Date: Expected LOS: 4 Initial Reviewer: [id number] Initial Review Date: 09/30/2018 Generated: 10/04/18 6:46 pm DCPIA - Discharge Planning Initial Assessment Updated by [email or web address]: Killian Jha on 10/04/18 5:46 pm * Is the patient Alert and Oriented? Yes * How many steps to enter\exit or inside your home? 18 * PCP DR. MOISE * Pharmacy [facility] * Preadmission Environment Home with Family * ADLs Independent * Equipment None * Other Equipment NO MEDICAL EQUIPMENT PROVIDER PREFERENCE * List name and contact numbers for known caregivers / representatives who currently or will assist patient after discharge: VINYN ETIENNE, SISTER, * Verbal permission to speak to the caregivers and representatives has been obtained from the patient. N/A * Community resources currently utilized Other * Please name any agencies selected above. [facility], MWF, 0630, MEDICAID TRANSPORT BUS * Additional services required to return to the preadmission environment? No * Can the patient safely return to the preadmission environment? Yes * Has this patient been hospitalized within the prior 30 days at any hospital? No Patient Name: NEISHA BOO Page 26089 at 1746 All edits/amendments must be made on the electronic document DICTATION DATE: 10/04/181745 SCREEN CLEANER: CAMILLE 10/04/181745 RPT#: [id number] DC DATE: STATUS: ADM IN [facility] [address] [place] [address] END OF REPORT
--- NOTE | ~2018-09-30 | MORECARE ---
CASE MANAGEMENT DISCHARGE SUMMARY PATIENT: NEISHA BOO UNIT: [id number] ADM DATE: 09/30/18 AGE: 57 : 62 SEX: F ROOM/BED: D.0007 AUTHOR: SEBASTIAN REYES PHYSICIAN: REFERRING PHYSICIAN: MARTY FERRARA MD DATE OF SERVICE: 10/05/18 Discharge Plan Patient Name: NEISHA BOO Facility: [facility]:[place] : 1960 Planned Disposition: Mcc Facility Anticipated Discharge Date: 10/04/18 Discharge Date: Expected LOS: 4 Initial Reviewer: [id number] Initial Review Date: 09/30/2018 Generated: 10/05/18 4:59 pm Comments DCP- Discharge Planning Updated by [email or web address]: Killian Jha on 10/05/18 2:[address] Patient Name: NEISHA BOO Encounter No: [id number] : 1960 Primary Insurance: MEDICARE A & B Anticipated DC Date: 10-04-2018 Planned Disposition: Mcc Facility External Planned Provider: [facility] DCP follow-up note: CM SPOKE TO FABIÁN BENNETT, MEDICARE HAS COMPLETED REVIEW AND AGREES WITH DISCHARGE OF PT. CM RECEIVED CALL FROM PT WHO INFORMED CM THAT THEY DISCHARGED HER TODAY AND SHE WANTS REHAB AT [facility] DISCUSSED. CM CALLED TOM, CLINICAL LIAISON FOR [facility], , ASKED FOR ASSESSMENT FOR REHAB ADMISSION TODAY. CM FAXED REFERRAL TO [facility] VIA TOM AT [phone]. TOM ARRIVED AND MET WITH PT IN ROOM, ADVISED CM THEY WILL COMPLETE ADMISSION ASSESSMENT SHORTLY AND PROVIDE ADMISSION DETERMINATION. CM MET WITH PT IN ROOM, PT IN AGREEMENT WITH DISCHARGE TO [facility] FOR REHAB, STATES SHE CANNOT STEP [place] ONTO THE [place]AT BUS TO GET TO AND FROM DIALYSIS AND NEEDS REHAB. CM WAITING ADMISSION DETERMINATION FROM [facility] FOR REHAB PLACEMENT. TRELL Deshpande DCP- Discharge Planning Updated by [id number]: Marlen Martinez on 10/05/18 12:[address] CM received call from Meche on [address] informing CM that they agreed with MD's decision to discharge. CM notified Tomer Jha and Alie Bennett. DCP- Discharge Planning Updated by [id number]: Killian Jha on 10/04/18 4:[address] Patient Name: NEISHA BOO Admission Status: ER Accout number: [id number] Admission Date: 09-30-2018 : 1960 Admission Diagnosis:SEPSIS, UNSPECIFIED ORGANISM Attending: Marty Ferrara Current LOS: 4 Anticipated DC Date: 10-04-2018 Planned Disposition: Mcc Facility Primary Insurance: MEDICARE A & B Discharge Planning Comments: CM MET WITH PT IN ROOM TO DISCUSS DISCHARGE PLANNING AND NEEDS. PT REPORTS LIVING AT HOME INDEPENDENTLY WITH HER ADULT SISTER; PT HAS NOT BEEN LIVING AT HER OWN APARTMENT DUE TO HAVING 18 STEPS TO CLIMB AT THE APARTMENT AND NONE AT HER SISTERS HOME LOCATED AT [address] [place] [address] IN [place]. PT HAS NO MEDICAL EQUIPMENT AND NO OUTSIDE SERVICES ASSISTING IN THE HOME. PT GOES TO OUTPATIENT [facility], MWF, 0630, [place] [facility]. CM DISCUSSED AVAILABILITY OF HOME HEALTH, REHAB SERVICES AND MEDICAL EQUIPMENT. PT DENIES DISCHARGE NEEDS, DENIES NEED OF REHAB SERVICE,S HOME HEALTH OR MEDICAL EQUIPMENT STATING " I DON'T NEED ANY OF THAT." PT REPORTS FAMILY WILL PICK HER UP FOR DISCHARGE HOME. IMPORTANT MESSAGE FROM MEDICARE PROVIDED AND EXPLAINED. PT STATES SHE IS NOT HAPPY WITH THE DOCTOR DISCHARGING HER AND WANTS THE DOCTOR TO EXPLAIN WHY PT KEEPS GETTING A FEVER. PT STATES THE DOCTOR TOLD HER SHE HAS A FEVER HAVING TO DO WITH HER HAVING DIALYSIS. PT IS CONSIDERING GOING TO A DOCTOR IN [place] TO GET ANSWERS. PT STATES SHE IS CALLING MEDICARE TO APPEAL HER DISCHARGE. CM NOTIFIED CORRECTIONAL MAINTENANCE TECHNICIAN NURSE, RN RAYMOND BENNETT AND ANNEMARIE RENAL CARD GRADER. CM LATER RECEIVED CALL FROM PT WHO ASKED TO SEE CM AND INFORMED CM THAT SHE LEFT A MESSAGE WITH MEDICARE AND COULDN'T GET A LIVE PERSON TO ANSWER THE PHONE. CM MET WITH PT REQUESTED. PT REPORTS SHE THINKS SHE NEEDS REHAB AND AFTER SPEAKING TO A FAMILY MEMBER, REQUESTED REFERRAL BE FAXED TO [facility] REH[facility]. CHOICE LETTER SIGNED. CM TO FAX REFERRAL TO [facility] FOR REHAB SCREENING SOON POSSIBLE. CM WAITING DISCHARGE DETERMINATION FROM MEDICARE. Regional Account Director: Killian Jha DCPIA - Discharge Planning Initial Assessment Updated by [id number]: Killian Jha on 10/04/18 5:46 pm * Is the patient Alert and Oriented? Yes * How many steps to enter\\exit or inside your home? 18 * PCP DR. MOISE * Pharmacy [facility] [address] * Preadmission Environment Home with Family * ADLs Independent * Equipment None * Other Equipment NO MEDICAL EQUIPMENT PROVIDER PREFERENCE * List name and contact numbers for known caregivers / representatives who currently or will assist patient after discharge: VINNY ETIENNE, SISTER, * Verbal permission to speak to the caregivers and representatives has been obtained from the patient. N/A * Community resources currently utilized Other * Please name any agencies selected above. OUTPATIENT [facility], MWF, 0630, MEDICAID TRANSPORT BUS * Additional services required to return to the preadmission environment? No * Can the patient safely return to the preadmission environment? Yes * Has this patient been hospitalized within the prior 30 days at any hospital? No Coverage Notice Reviewer: [id number] Jha Notice Issued Date-Time: 10/04/2018 11:45 Notice Type: IM Discharge Notice Notice Delivered To: Patient Relationship to Patient: Belt Polisher Name: Delivery Method: HAND - Hand Delivered Yuliana Days: Prior Verbal Notification: Recipient Understood Notice: Yes Recipient Signature: Yes Med Rec Note Co-signed by Attending: Coverage Notice Comment: Reviewer: USHA Jha Notice Issued Date-Time: 10/04/2018 13:00 Notice Type: Patient Choice Letter Notice Delivered To: Patient Relationship to Patient: Belt Polisher Name: Delivery Method: HAND - Hand Delivered Yuliana Days: Prior Verbal Notification: Recipient Understood Notice: Yes Recipient Signature: Yes Med Rec Note Co-signed by Attending: Coverage Notice Comment: AMIRAH Duong DP export: 10/05/18 1:01 p Patient Name: NEISHA BOO Page [id number] at 1559 All edits/amendments must be made on the electronic document DICTATION DATE: 10/05/181558 STORE KEEPER: CAMILLE 10/05/181558 RPT#: [id number] DC DATE: STATUS: ADM IN [facility] [address] [place] [address] END OF REPORT
--- NOTE | ~2018-09-30 | MORECARE ---
CASE MANAGEMENT DISCHARGE SUMMARY PATIENT: NEISHA BOO UNIT: [id number] ADM DATE: 09/30/18 AGE: 57 : 62 SEX: F ROOM/BED: D.9208 AUTHOR: SEBASTIAN REYES PHYSICIAN: REFERRING PHYSICIAN: MARTY FERRARA MD DATE OF SERVICE: 10/05/18 Discharge Plan Patient Name: NEISHA BOO Facility: [facility]:[place] : 1960 Planned Disposition: Home Anticipated Discharge Date: 10/05/18 Discharge Date: Expected LOS: 5 Initial Reviewer: [id number] Initial Review Date: 09/30/2018 Generated: 10/05/18 6:50 pm Comments DCP- Discharge Planning Updated by [id number]: Nancy Manriquez on 10/05/18 4:[address] Patient Name: NEISHA BOO Encounter No: [id number] : 1960 Primary Insurance: MEDICARE A & B Anticipated DC Date: 10-05-2018 Planned Disposition: Home DCP follow-up note: CM RECEIVED CALL FROM [facility]OM [facility] WHO INFORMED CM THAT [facility] WANTS KAEL ASSESSMENT DUE TO PT BEING ON [employer]. CM SPOKE TO PT IN ROOM, PT STATES SHE IS GOING HOME WITH HER SISTER; CM SPOKE TO TOM [facility] WHO REPORTS THAT SHE WILL CONTACT PT AT HOME IN THE MORNING TO COMPLETE THE KAEL SCREENING, IF PT WANTS REHAB STILL AT [place]. CM SPOKE TO PT WHO DOES WANT REHAB AT [place] AND WILL BE AT HER SISTERS HOME ON [facility]. PT REPORTS SHE IS LEAVING [facility] MEDICARE STOPPED PAYINF HER HOSPITAL BILL TODAY AT NOON. CM NOTIFIED TOM WHO WILL MEET WITH PT TOMORROW AND CONTINUE PROCESS OF KAEL ASSESSMENT AND TRY TO GET PT INTO [facility]. PT DENIES NEED OF MEDICAL EQUIPMENT OR HOME HEALTH, WILL FOLLOW UP WITH TOM OF [facility] TOMORROW. PT REPORTS HER SISTER [facility]. BEDSIDE NURSE NOTIFIED. NANCY MANRIQUEZ, CASE MANAGEMENT DCP- Discharge Planning Updated by [id number]: Nancy Manriquez on 10/05/18 2:[address] Patient Name: NEISHA BOO Encounter No: [id number] : 1960 Primary Insurance: MEDICARE A & B Anticipated DC Date: 10-04-2018 Planned Disposition: Long Term Facility External Planned Provider: [facility], MEDICARE REHAB DCP follow-up note: CM SPOKE TO RN RAYMOND BENNETT, MEDICARE HAS COMPLETED REVIEW AND AGREES WITH DISCHARGE OF PT. CM RECEIVED CALL FROM PT WHO INFORMED CM THAT THEY DISCHARGED HER TODAY AND SHE WANTS REHAB AT [facility] DISCUSSED. CM CALLED TOM CLINICAL LIAISON FOR [facility], , ASKED FOR ASSESSMENT FOR REHAB ADMISSION TODAY. CM FAXED REFERRAL TO [facility] VIA TOM AT [phone]. TOM ARRIVED AND MET WITH PT IN ROOM, ADVISED CM THEY WILL COMPLETE ADMISSION ASSESSMENT SHORTLY AND PROVIDE ADMISSION DETERMINATION. CM MET WITH PT IN ROOM, PT IN AGREEMENT WITH DISCHARGE TO [facility] FOR REHAB, STATES SHE CANNOT STEP UP ONTO THE SCAT BUS TO GET TO AND FROM DIALYSIS AND NEEDS REHAB. CM WAITING ADMISSION DETERMINATION FROM [facility] FOR REHAB PLACEMENT. Nancy Manriquez, CASE MANAGEMENT DCP- Discharge Planning Updated by [id number]: Marlen Martinez on 10/05/18 12:[address] CM received call from Meche on [employer] informing CM that they agreed with MD's decision to discharge. CM notified Tomer Manriquez and Alie Bennett. DCP- Discharge Planning Updated by [id number]: Nancy Manriquez on 10/04/18 4:[address] Patient Name: NEISHA BOO Admission Status: ER Accout number: [id number] Admission Date: 09-30-2018 : 1960 Admission Diagnosis:SEPSIS, UNSPECIFIED ORGANISM Attending: Marty Ferrara Current LOS: 4 Anticipated DC Date: 10-04-2018 Planned Disposition: Long Term Facility Primary Insurance: MEDICARE A & B Discharge Planning Comments: CM MET WITH PT IN ROOM TO DISCUSS DISCHARGE PLANNING AND NEEDS. PT REPORTS LIVING AT HOME INDEPENDENTLY WITH HER ADULT SISTER; PT HAS NOT BEEN LIVING AT HER OWN APARTMENT DUE TO HAVING 18 STEPS TO CLIMB AT THE APARTMENT AND NONE AT HER SISTERS HOME LOCATED AT [address] [place] [address] [place]. PT HAS NO MEDICAL EQUIPMENT AND NO OUTSIDE SERVICES ASSISTING IN THE HOME. PT GOES TO [facility], MWF, 0630, [facility] TRANSPORT [facility]. CM DISCUSSED AVAILABILITY OF HOME HEALTH, REHAB SERVICES AND MEDICAL EQUIPMENT. PT DENIES DISCHARGE NEEDS, DENIES NEED OF REHAB SERVICE,S HOME HEALTH OR MEDICAL EQUIPMENT STATING " I DON'T NEED ANY OF THAT." PT REPORTS FAMILY WILL PICK HER UP FOR DISCHARGE HOME. IMPORTANT MESSAGE FROM MEDICARE PROVIDED AND EXPLAINED. PT STATES SHE IS NOT HAPPY WITH THE DOCTOR DISCHARGING HER AND WANTS THE DOCTOR TO EXPLAIN WHY PT KEEPS GETTING A FEVER. PT STATES THE DOCTOR TOLD HER SHE HAS A FEVER HAVING TO DO WITH HER HAVING DIALYSIS. PT IS CONSIDERING GOING TO A DOCTOR IN [place] TO GET ANSWERS. PT STATES SHE IS CALLING MEDICARE TO APPEAL HER DISCHARGE. CM NOTIFIED MOLDER MACHINE NURSE, RN RAYMOND BENNETT AND ANNEMARIE RENAL POST ACUTE CARE NURSE. CM LATER RECEIVED CALL FROM PT WHO ASKED TO SEE CM AND INFORMED CM THAT SHE LEFT A MESSAGE WITH MEDICARE AND COULDN'T GET A LIVE PERSON TO ANSWER THE PHONE. CM MET WITH PT REQUESTED. PT REPORTS SHE THINKS SHE NEEDS REHAB AND AFTER SPEAKING TO A FAMILY MEMBER, REQUESTED REFERRAL BE FAXED TO [facility] RE[facility]AB. CHOICE LETTER SIGNED. CM TO FAX REFERRAL TO [facility] FOR REHAB SCREENING SOON POSSIBLE. CM WAITING DISCHARGE DETERMINATION FROM MEDICARE. Arc Welder Apprentice: Nancy Manriquez DCPIA - Discharge Planning Initial Assessment Updated by [id number]: Nancy Manriquez on 10/04/18 5:46 pm * Is the patient Alert and Oriented? Yes * How many steps to enter\\exit or inside your home? 18 * PCP DR. MOISE * [facility]acy [facility] * Preadmission Environment Home with Family * ADLs Independent * Equipment None * Other Equipment NO MEDICAL EQUIPMENT PROVIDER PREFERENCE * List name and contact numbers for known caregivers / representatives who currently or will assist patient after discharge: VINNY ETIENNE, SISTER, * Verbal permission to speak to the caregivers and representatives has been obtained from the patient. N/A * Community resources currently utilized Other * Please name any agencies selected above. [facility], MWF, 0630, MEDICAID TRANSPORT BUS * Additional services required to return to the preadmission environment? No * Can the patient safely return to the preadmission environment? Yes * Has this patient been hospitalized within the prior 30 days at any hospital? No Coverage Notice Reviewer: [id number] Estefani Manriquez Notice Issued Date-Time: 10/04/2018 11:45 Notice Type: IM Discharge Notice Notice Delivered To: Patient Relationship to Patient: Homicide Investigator Name: Delivery Method: HAND - Hand Delivered Yuliana Days: Prior Verbal Notification: Recipient Understood Notice: Yes Recipient Signature: Yes Med Rec Note Co-signed by Attending: Coverage Notice Comment: Reviewer: [id number] Estefani Manriquez Notice Issued Date-Time: 10/04/2018 13:00 Notice Type: Patient Choice Letter Notice Delivered To: Patient Relationship to Patient: Homicide Investigator Name: Delivery Method: HAND - Hand Delivered Yuliana Days: Prior Verbal Notification: Recipient Understood Notice: Yes Recipient Signature: Yes Med Rec Note Co-signed by Attending: Coverage Notice Comment: AMIRAH Duong DP export: 10/05/18 4:42 p Patient Name: NEISHA BOO Page 10616 at 1750 All edits/amendments must be made on the electronic document DICTATION DATE: 10/05/181748 FILTER MACHINE OPERATOR: CAMILLE 10/05/181748 RPT#: [id number] DC DATE: STATUS: ADM IN [facility] [address] [place] [address] END OF REPORT
--- NOTE | ~2018-09-30 | MORECARE ---
CASE MANAGEMENT DISCHARGE SUMMARY PATIENT: NEISHA BOO UNIT: [id number] ADM DATE: 09/30/18 AGE: 57 : 62 SEX: F ROOM/BED: D.2105 AUTHOR: SEBASTIAN REYES PHYSICIAN: REFERRING PHYSICIAN: MARTY FERRARA MD DATE OF SERVICE: 10/05/18 Discharge Plan Patient Name: NEISHA BOO Facility: [facility]:[place] : 1960 Planned Disposition: Fpc Facility Anticipated Discharge Date: 10/04/18 Discharge Date: Expected LOS: 4 Initial Reviewer: [id number] Initial Review Date: 09/30/2018 Generated: 10/05/18 3:01 pm Comments DCP- Discharge Planning Updated by [id number]: Marlen Martinez on 10/05/18 12:[address] CM [facility] informing CM that they agreed with MD's decision to discharge. CM notified Tomer Jha and Alie Sanabria. DCP- Discharge Planning Updated by [id number]: Killian Jha on 10/04/18 4:[address] Patient Name: NEISHA BOO Admission Status: ER Accout number: [id number] Admission Date: 09-30-2018 : 1960 Admission Diagnosis:SEPSIS, UNSPECIFIED ORGANISM Attending: Marty Ferrara Current LOS: 4 Anticipated DC Date: 10-04-2018 Planned Disposition: Fpc Facility Primary Insurance: MEDICARE A & B Discharge Planning Comments: CM MET WITH PT IN ROOM TO DISCUSS DISCHARGE PLANNING AND NEEDS. PT REPORTS LIVING AT HOME INDEPENDENTLY WITH HER ADULT SISTER; PT HAS NOT BEEN LIVING AT HER OWN APARTMENT DUE TO HAVING 18 STEPS TO CLIMB AT THE APARTMENT AND NONE AT HER SISTERS HOME LOCATED AT [address] [place] [address] [place]. PT HAS NO MEDICAL EQUIPMENT AND NO OUTSIDE SERVICES ASSISTING IN THE HOME. PT GOES TO OUTPATIENT [facility], MWF, 0630, [place] [facility]SPORT [facility]. CM DISCUSSED AVAILABILITY OF HOME HEALTH, REHAB SERVICES AND MEDICAL EQUIPMENT. PT DENIES DISCHARGE NEEDS, DENIES NEED OF REHAB SERVICE,S HOME HEALTH OR MEDICAL EQUIPMENT STATING " I DON'T NEED ANY OF THAT." PT REPORTS FAMILY WILL PICK HER UP FOR DISCHARGE HOME. IMPORTANT MESSAGE FROM MEDICARE PROVIDED AND EXPLAINED. PT STATES SHE IS NOT HAPPY WITH THE DOCTOR DISCHARGING HER AND WANTS THE DOCTOR TO EXPLAIN WHY PT KEEPS GETTING A FEVER. PT STATES THE DOCTOR TOLD HER SHE HAS A FEVER HAVING TO DO WITH HER HAVING DIALYSIS. PT IS CONSIDERING GOING TO A DOCTOR IN [place] TO GET ANSWERS. PT STATES SHE IS CALLING MEDICARE TO APPEAL HER DISCHARGE. CM NOTIFIED PRINT BUYER NURSE, RN RAYMOND SANABRIA AND ANNEMARIE RENAL SUBMARINE ADVISORY TEAM WATCH OFFICER. CM LATER RECEIVED CALL FROM PT WHO ASKED TO SEE CM AND INFORMED CM THAT SHE LEFT A MESSAGE WITH MEDICARE AND COULDN'T GET A LIVE PERSON TO ANSWER THE PHONE. CM MET WITH PT REQUESTED. PT REPORTS SHE THINKS SHE NEEDS REHAB AND AFTER SPEAKING TO A FAMILY MEMBER, REQUESTED REFERRAL BE FAXED TO [facility]. CHOICE LETTER SIGNED. CM TO FAX REFERRAL TO [facility] FOR REHAB SCREENING SOON POSSIBLE. CM WAITING DISCHARGE DETERMINATION FROM MEDICARE. Supply Chain Generalist: Killian Jha DCPIA - Discharge Planning Initial Assessment Updated by [id number]: Killian Jha on 10/04/18 5:46 pm * Is the patient Alert and Oriented? Yes * How many steps to enter\\exit or inside your home? 18 * PCP DR. MOISE * [facility] [address] * Preadmission Environment Home with Family * ADLs Independent * Equipment None * Other Equipment NO MEDICAL EQUIPMENT PROVIDER PREFERENCE * List name and contact numbers for known caregivers / representatives who currently or will assist patient after discharge: VINNY ETIENNE, SISTER, * Verbal permission to speak to the caregivers and representatives has been obtained from the patient. N/A * Community resources currently utilized Other * Please name any agencies selected above. OUTPATIENT [facility], MWF, 0630, MEDICAID TRANSPORT BUS * Additional services required to return to the preadmission environment? No * Can the patient safely return to the preadmission environment? Yes * Has this patient been hospitalized within the prior 30 days at any hospital? No Coverage Notice Reviewer: [id number] - Killian Jha Notice Issued Date-Time: 10/04/2018 11:45 Notice Type: IM Discharge Notice Notice Delivered To: Patient Relationship to Patient: System Planning Engineer Name: Delivery Method: HAND - Hand Delivered Yuliana Days: Prior Verbal Notification: Recipient Understood Notice: Yes Recipient Signature: Yes Med Rec Note Co-signed by Attending: Coverage Notice Comment: Reviewer: [id number] - Killian Jha Notice Issued Date-Time: 10/04/2018 13:00 Notice Type: Patient Choice Letter Notice Delivered To: Patient Relationship to Patient: System Planning Engineer Name: Delivery Method: HAND - Hand Delivered Yuliana Days: Prior Verbal Notification: Recipient Understood Notice: Yes Recipient Signature: Yes Med Rec Note Co-signed by Attending: Coverage Notice Comment: AMIRAH Duong DP export: 10/05/18 8:08 a Patient Name: NEISHA BOO Page 76913 at 1401 All edits/amendments must be made on the electronic document DICTATION DATE: 10/05/18 1400 DOG LICENSE OFFICER SUPERVISOR: CAMILLE 10/05/18 1400 RPT#: [id number] DC DATE: STATUS: ADM IN [facility] [address] [place] [address] END OF REPORT
--- NOTE | ~2018-09-30 | MORECARE ---
CASE MANAGEMENT DISCHARGE SUMMARY PATIENT: NEISHA BOO UNIT: [id number] ADM DATE: 09/30/18 AGE: 57 : 62 SEX: F ROOM/BED: D.0596 AUTHOR: SEBASTIAN REYES PHYSICIAN: REFERRING PHYSICIAN: MARTY FERRARA MD DATE OF SERVICE: 10/04/18 Discharge Plan Patient Name: NEISHA BOO Facility: [facility]:[place] : 1960 Planned Disposition: Long-Term Facility Anticipated Discharge Date: 10/04/18 Discharge Date: Expected LOS: 4 Initial Reviewer: [id number] Initial Review Date: 09/30/2018 Generated: 10/04/18 6:59 pm Comments DCP- Discharge Planning Updated by [id number]: Killian Jha on 10/04/18 4:[address] Patient Name: NEISHA BOO Admission Status: ER Accout number: [id number] Admission Date: 09-30-2018 : 1960 Admission Diagnosis:SEPSIS, UNSPECIFIED ORGANISM Attending: Marty Ferrara Current LOS: 4 Anticipated DC Date: 10-04-2018 Planned Disposition: Long-Term Facility Primary Insurance: MEDICARE A & B Discharge Planning Comments: CM MET WITH PT IN ROOM TO DISCUSS DISCHARGE PLANNING AND NEEDS. PT REPORTS LIVING AT HOME INDEPENDENTLY WITH HER ADULT SISTER; PT HAS NOT BEEN LIVING AT HER OWN APARTMENT DUE TO HAVING 18 STEPS TO CLIMB AT THE APARTMENT AND NONE AT HER SISTERS HOME LOCATED AT [address] [place] [address] [place]. PT HAS NO MEDICAL EQUIPMENT AND NO OUTSIDE SERVICES ASSISTING IN THE HOME. PT GOES TO OUTPATIENT [facility], MWF, 0630, [place] [facility] TRANSPORT [facility]. CM DISCUSSED AVAILABILITY OF HOME HEALTH, REHAB SERVICES AND MEDICAL EQUIPMENT. PT DENIES DISCHARGE NEEDS, DENIES NEED OF REHAB SERVICE,S HOME HEALTH OR MEDICAL EQUIPMENT STATING " I DON'T NEED ANY OF THAT." PT REPORTS FAMILY WILL PICK HER UP FOR DISCHARGE HOME. IMPORTANT MESSAGE FROM MEDICARE PROVIDED AND EXPLAINED. PT STATES SHE IS NOT HAPPY WITH THE DOCTOR DISCHARGING HER AND WANTS THE DOCTOR TO EXPLAIN WHY PT KEEPS GETTING A FEVER. PT STATES THE DOCTOR TOLD HER SHE HAS A FEVER HAVING TO DO WITH HER HAVING DIALYSIS. PT IS CONSIDERING GOING TO A DOCTOR IN [place] TO GET ANSWERS. PT STATES SHE IS CALLING MEDICARE TO APPEAL HER DISCHARGE. CM NOTIFIED JAVA SOFTWARE ENGINEER NURSE, RN RAYMOND BENNETT AND ANNEMARIE RENAL SOCIAL SCIENCES INSTRUCTOR. CM LATER RECEIVED CALL FROM PT WHO ASKED TO SEE CM AND INFORMED CM THAT SHE LEFT A MESSAGE WITH MEDICARE AND COULDN'T GET A LIVE PERSON TO ANSWER THE PHONE. CM MET WITH PT REQUESTED. PT REPORTS SHE THINKS SHE NEEDS REHAB AND AFTER SPEAKING TO A FAMILY MEMBER, REQUESTED REFERRAL BE FAXED TO [facility] REH[facility]. CHOICE LETTER SIGNED. CM TO FAX REFERRAL TO [facility] FOR REHAB SCREENING SOON POSSIBLE. CM WAITING DISCHARGE DETERMINATION FROM MEDICARE. Data Analyst Etl Developer: Killian Jha DCPIA - Discharge Planning Initial Assessment Updated by [id number]: Killian Jha on 10/04/18 5:46 pm * Is the patient Alert and Oriented? Yes * How many steps to enter\\exit or inside your home? 18 * PCP DR. MOISE * [facility] * Preadmission Environment Home with Family * ADLs Independent * Equipment None * Other Equipment NO MEDICAL EQUIPMENT PROVIDER PREFERENCE * List name and contact numbers for known caregivers / representatives who currently or will assist patient after discharge: VINNY ETIENNE, SISTER, * Verbal permission to speak to the caregivers and representatives has been obtained from the patient. N/A * Community resources currently utilized Other * Please name any agencies selected above. OUTPATIENT [facility], MWF, 0630, MEDICAID TRANSPORT BUS * Additional services required to return to the preadmission environment? No * Can the patient safely return to the preadmission environment? Yes * Has this patient been hospitalized within the prior 30 days at any hospital? No Coverage Notice Reviewer: [id number] Estefani Jha Notice Issued Date-Time: 10/04/2018 11:45 Notice Type: IM Discharge Notice Notice Delivered To: Patient Relationship to Patient: Hose Tender Name: Delivery Method: HAND - Hand Delivered Yuliana Days: Prior Verbal Notification: Recipient Understood Notice: Yes Recipient Signature: Yes Med Rec Note Co-signed by Attending: Coverage Notice Comment: Reviewer: USHA Jha Notice Issued Date-Time: 10/04/2018 13:00 Notice Type: Patient Choice Letter Notice Delivered To: Patient Relationship to Patient: Hose Tender Name: Delivery Method: HAND - Hand Delivered Yuliana Days: Prior Verbal Notification: Recipient Understood Notice: Yes Recipient Signature: Yes Med Rec Note Co-signed by Attending: Coverage Notice Comment: AMIRAH Duong DP export: 10/04/18 4:46 p Patient Name: NEISHA BOO Page 98482 at 1800 All edits/amendments must be made on the electronic document DICTATION DATE: 10/04/181758 MICROBIOLOGY LAB ASSISTANT: CAMILLE 10/04/181758 RPT#: [id number] DC DATE: STATUS: ADM IN [facility] [address] [place] [address] END OF REPORT
[~2018-09-30 06:03] MED LIST changes: +DIFLUCAN100 MG PO; +DITROPAN X5 MG/BOTTL PO; +PHENERGAN25 M1 PO; +REGLAN5 MG PO; +REQUIP0.5 MG PO; +ZYPREXA10 MG PO
[2018-09-30 06:53] LABS: BASOPHILS 0.1 % (0-2); EOSINOPHILS 0 % (0-7); HEMATOCRIT 33.2 % (36.0-48.0); HEMOGLOBIN 10.7 g/dL (12-16); IMMATURE GRANULOCYTES 0.4 % (0-5); MCHC 32.2 g/dL (31.0-37.0); MEAN PLATELET VOLUME 9.4 fL (7.4-10.4); MONOCYTES 17.3 % (2-11); NEUTROPHILS 70.2 % (40-80); PLATELET COUNT 195 10x3/uL (130-400); RBC 3.57 10x6/uL (4.00-5.40); RDW 15.6 % (11.5-14.5); WBC 9.1 10x3/uL (4.8-10.8)
[2018-09-30 07:20] LABS: ALBUMIN 1.9 g/dL (3.4-5.0); ALKALINE PHOSPHATASE 202 U/L (46-116); ALT (SGPT) 5 U/L (10-68); BILIRUBIN - TOTAL 1.15 mg/dL (0.2-1.3); CALC OSMOLALITY 276 mosm/kg (275-300); CALCIUM 9.1 mg/dL (8.5-10.1); CARBON DIOXIDE 22.7 mmol/L (21.0-32.0); CHLORIDE - SERUM 97 mmol/L (98-107); CREATININE - SERUM 8.5 mg/dL (0.6-1.3); GLUCOSE 72 mg/dL (74-106); POTASSIUM - SERUM 4.2 mmol/L (3.5-5.1); PROTEIN - SERUM 7.1 g/dL (6.4-8.2); SODIUM 135 mmol/L (136-145); UREA NITROGEN 36 mg/dL (7-18); eGFR NON AFRICAN AMERICAN 5 mL/min (90-120)
[2018-09-30 07:30] LABS: CKMB 0.7 U/L (0.0-3.6); CREATINE KINASE 37 UL (21-215)
[2018-09-30 07:42] LABS: APTT 39.8 SECONDS (22.8-39.4); INR 1.39 (0.85-1.17); PROTIME 16.5 SECONDS (11.6-15.0)
[2018-09-30 09:28] LABS: TROPONIN-I 0.696 ng/mL (0.000-0.060)
[2018-09-30 09:35] LABS: APPEARANCE HAZY (CLEAR); BACTERIA FEW /hpf (NONE SEEN); BILIRUBIN NEGATIVE (NEGATIVE); COLOR YELLOW (YELLOW); EPITHELIAL CELLS 0-5 /hpf (0-5); GLUCOSE NEGATIVE (NEGATIVE); KETONE NEGATIVE (NEGATIVE); NITRITE NEGATIVE (NEGATIVE); PROTEIN 3+ mg/dL (NEGATIVE); RED CELLS - URINE 0-5 /hpf (0-5); UROBILINOGEN NORMAL (NORMAL); WHITE CELLS - URINE 0-5 /hpf (0-5)
[2018-09-30 11:50] VITALS: BP 109/60; BMI 39.1
[2018-09-30 13:00] VITALS: BP 139/68
[2018-09-30 14:00] VITALS: BP 130/68
[2018-09-30 15:00] VITALS: BP 118/76
[2018-09-30 15:01] LABS: CKMB 0.4 U/L (0.0-3.6); CREATINE KINASE 32 UL (21-215); TROPONIN-I 0.392 ng/mL (0.000-0.060)
[2018-09-30 20:00] VITALS: BP 96/40
[2018-09-30 20:39] LABS: CKMB 0.5 U/L (0.0-3.6); CREATINE KINASE 34 UL (21-215)
[2018-09-30 20:42] LABS: TROPONIN-I 0.508 ng/mL (0.000-0.060)
[2018-10-01 04:00] VITALS: BP 105/40
[2018-10-01 05:21] LABS: BASOPHILS 0 % (0-2); EOSINOPHILS 0 % (0-7); HEMATOCRIT 29.5 % (36.0-48.0); HEMOGLOBIN 9.5 g/dL (12-16); IMMATURE GRANULOCYTES 0.3 % (0-5); LYMPHOCYTES 21.7 % (15-50); MCH 29.5 pg (26.0-34.0); MCHC 32.2 g/dL (31.0-37.0); MCV 91.6 fL (80.0-100.0); MEAN PLATELET VOLUME 9.9 fL (7.4-10.4); MONOCYTES 13.7 % (2-11); NEUTROPHILS 64.3 % (40-80); PLATELET COUNT 182 10x3/uL (130-400); RBC 3.22 10x6/uL (4.00-5.40); RDW 15.8 % (11.5-14.5); WBC 6.6 10x3/uL (4.8-10.8)
[2018-10-01 05:47] LABS: ALBUMIN 1.6 g/dL (3.4-5.0); ANION GAP 15.7 mmol/L (8-16); BILIRUBIN - TOTAL 0.89 mg/dL (0.2-1.3); CALCIUM 8.7 mg/dL (8.5-10.1); CARBON DIOXIDE 25.6 mmol/L (21.0-32.0); CREATININE - SERUM 9.1 mg/dL (0.6-1.3); POTASSIUM - SERUM 4.3 mmol/L (3.5-5.1); PROTEIN - SERUM 6.2 g/dL (6.4-8.2); THYROID STIMULATING HORMONE 0.48 uIU/mL (0.36-3.74); VANCOMYCIN - RANDOM 4.2 ug/mL (10.0-20.0)
[2018-10-01 09:07] VITALS: BMI 42.1
[2018-10-01 09:56] VITALS: BP 115/58
[2018-10-01 20:30] VITALS: BP 115/55
[2018-10-02 04:30] VITALS: BP 90/43
[2018-10-02 07:31] LABS: HEMATOCRIT 26.5 % (36.0-48.0); HEMOGLOBIN 8.5 g/dL (12-16); MCH 29.5 pg (26.0-34.0); MCHC 32.1 g/dL (31.0-37.0); MEAN PLATELET VOLUME 9.2 fL (7.4-10.4); NEUTROPHILS 52.1 % (40-80); PLATELET COUNT 147 10x3/uL (130-400); RBC 2.88 10x6/uL (4.00-5.40); RDW 15.8 % (11.5-14.5); WBC 6.2 10x3/uL (4.8-10.8)
[2018-10-02 07:32] LABS: BASOPHILS 0.2 % (0-2); EOSINOPHILS 0 % (0-7); IMMATURE GRANULOCYTES 1.1 % (0-5); LYMPHOCYTES 24.3 % (15-50); MONOCYTES 22.3 % (2-11)
[2018-10-02 07:51] LABS: ANION GAP 13.9 mmol/L (8-16); CALCIUM 8.5 mg/dL (8.5-10.1); CARBON DIOXIDE 27.4 mmol/L (21.0-32.0); CREATININE - SERUM 7.4 mg/dL (0.6-1.3); POTASSIUM - SERUM 4.3 mmol/L (3.5-5.1); VANCOMYCIN - RANDOM 3.7 ug/mL (10.0-20.0)
[2018-10-02 09:23] VITALS: BP 121/62
[2018-10-02 11:45] VITALS: Ht 165.1 cm; Wt 117.7 kg
[2018-10-02 11:53] VITALS: BP 104/44
[2018-10-02 14:52] VITALS: BP 112/68
[2018-10-02 20:30] VITALS: BP 112/41
[2018-10-03 04:32] LABS: BASOPHILS 0.1 % (0-2); EOSINOPHILS 0 % (0-7); HEMOGLOBIN 8.6 g/dL (12-16); IMMATURE GRANULOCYTES 0.9 % (0-5); LYMPHOCYTES 21.5 % (15-50); MCH 30.6 pg (26.0-34.0); MCHC 33.1 g/dL (31.0-37.0); MCV 92.5 fL (80.0-100.0); MEAN PLATELET VOLUME 9.8 fL (7.4-10.4); MONOCYTES 28.4 % (2-11); NEUTROPHILS 49.1 % (40-80); PLATELET COUNT 141 10x3/uL (130-400); RBC 2.81 10x6/uL (4.00-5.40); RDW 15.9 % (11.5-14.5); WBC 6.7 10x3/uL (4.8-10.8)
[2018-10-03 05:00] LABS: ANION GAP 17.4 mmol/L (8-16); CALCIUM 8.1 mg/dL (8.5-10.1); CARBON DIOXIDE 25.3 mmol/L (21.0-32.0); CREATININE - SERUM 8.6 mg/dL (0.6-1.3); POTASSIUM - SERUM 4.7 mmol/L (3.5-5.1); VANCOMYCIN - RANDOM 2.9 ug/mL (10.0-20.0)
[2018-10-03 07:57] VITALS: BP 87/34
[2018-10-03 15:43] VITALS: BP 89/44
[2018-10-03 22:11] VITALS: BP 91/39
[2018-10-04 01:13] VITALS: BP 100/45
[2018-10-04 04:46] LABS: HEMATOCRIT 26.3 % (36.0-48.0); HEMOGLOBIN 8.4 g/dL (12-16); MCH 29.6 pg (26.0-34.0); MCHC 31.9 g/dL (31.0-37.0); MCV 92.6 fL (80.0-100.0); PLATELET COUNT 149 10x3/uL (130-400); RBC 2.84 10x6/uL (4.00-5.40); RDW 15.8 % (11.5-14.5); WBC 7.5 10x3/uL (4.8-10.8)
[2018-10-04 05:09] LABS: CALCIUM 8.1 mg/dL (8.5-10.1); CARBON DIOXIDE 25.3 mmol/L (21.0-32.0); CREATININE - SERUM 8.5 mg/dL (0.6-1.3)
[2018-10-04 05:18] VITALS: BP 124/56
[2018-10-04 07:09] LABS: ANION GAP 18.6 mmol/L (8-16); POTASSIUM - SERUM 4.9 mmol/L (3.5-5.1)
[2018-10-04 07:24] LABS: ANISOCYTOSIS OCC; HYPOCHROMASIA OCC; LYMPHOCYTES 32 % (15-50); MONOCYTES 17 % (2-11); NEUTROPHILS 43 % (40-80); PLATELET ESTIMATE NORMAL; ROULEAUX OCC
[2018-10-04 08:39] VITALS: BP 91/48
[2018-10-04 11:16] VITALS: BP 93/48
[2018-10-04] MEDS ORDERED: MIDODRINE HCL2.5 MG PO (11:20)
[2018-10-04] MEDS ORDERED: COREG 3.1253.125 MG PO (11:21)
[2018-10-04 15:48] VITALS: BP 103/51
[2018-10-04 21:07] VITALS: BP 121/61
[2018-10-05 00:35] VITALS: BP 104/60
[2018-10-05 06:08] VITALS: BP 103/56
[2018-10-05 06:08] LABS: ANION GAP 19.2 mmol/L (8-16); CALCIUM 7.9 mg/dL (8.5-10.1); CARBON DIOXIDE 25.8 mmol/L (21.0-32.0); CREATININE - SERUM 10.1 mg/dL (0.6-1.3)
[2018-10-05 07:06] LABS: BASOPHILS 0.1 % (0-2); EOSINOPHILS 0 % (0-7); IMMATURE GRANULOCYTES 1.4 % (0-5); LYMPHOCYTES 19.7 % (15-50); MCH 29.4 pg (26.0-34.0); MCV 91.9 fL (80.0-100.0); MEAN PLATELET VOLUME 9.9 fL (7.4-10.4); MONOCYTES 30.9 % (2-11); NEUTROPHILS 47.9 % (40-80); PLATELET COUNT 163 10x3/uL (130-400); RBC 2.72 10x6/uL (4.00-5.40); RDW 16.2 % (11.5-14.5); WBC 7.8 10x3/uL (4.8-10.8)
[2018-10-05 07:48] VITALS: BP 94/36
[2018-10-05 14:26] LABS: EHRLICHIA CHAFF IGG Negative (Neg:<1:64); EHRLICHIA CHAFF IGM Negative (Neg:<1:20); HGE IGG TITER Negative (Neg:<1:64); HGE IGM TITER Negative (Neg:<1:20)
== END 2018-10-05 19:21 | disposition home or self-care (01) | DRG 871 ==
LOC: D.ER 06:03 → D.EDHOLD 07:58 → D.ICU 07:58 → D.M2 07:58 → D.ICU 09:56 → D.M2 18:52
PROVIDERS: Family Medicine; Internal Medicine Nephrology
PROC: 05HN33Z Insertion of Infusion Device into Left Internal Jugular Vein, Percutaneous Approach (ICD-10-PCS; principal; 2018-09-30)
DX: A41.9 Sepsis, unspecified organism (principal); N18.6 End stage renal disease; I13.2 Hypertensive heart and chronic kidney disease with heart failure and with stage 5 chronic kidney disease, or end stage renal disease; E11.22 Type 2 diabetes mellitus with diabetic chronic kidney disease; I50.9 Heart failure, unspecified; E11.43 Type 2 diabetes mellitus with diabetic autonomic (poly)neuropathy; K31.84 Gastroparesis; R82.71 Bacteriuria; D64.9 Anemia, unspecified

== ENCOUNTER 2018-10-17 08:34 | Inpatient (IN) | payer MEDICARE, BC ==
[2018-10-17] VITALS (16 sets, daily range): BP systolic 90–126; BP diastolic 36–81; BMI 42.6
[~2018-10-17] VITALS: Ht 165.1 cm; Wt 117.1 kg
--- NOTE | ~2018-10-17 | OP ---
PATIENT NAME: NEISHA BOO MEDICAL RECORD: [id number] :[birth year] LOCATION:D.M2 D.2117 ADMISSION DATE:10/17/18 SURGEON: YOKASTA TURNER MD DATE OF OPERATION: 10/18/2018 PROCEDURES: 1. Left heart catheterization. 2. Selective coronary angiography. 3. Left ventriculogram. 4. Intravascular ultrasound. INDICATION: Chest pain compatible with angina, coronary artery disease, and previous cardiac stenting. PROCEDURE IN DETAIL: After informed consent was obtained and after a detailed explanation of the risks, benefits as well as alternative therapies, the patient elected to proceed with angiogram and angioplasty. The right femoral area was prepped and draped in normal sterile fashion. Right femoral artery was cannulated via modified Seldinger technique with placement of a 6-Nicaraguan sheath. All catheters exchanged through this sheath. FINDINGS: The left ventriculogram was performed in standard 30-degree TATUM view, reveals good cardiac wall motion throughout all segments. Overall ejection fraction 65% to 70%. SELECTIVE CORONARY ANGIOGRAPHY: 1. Left main is with no significant angiographic disease. 2. Left anterior descending has previously placed stent. Intravascular ultrasound confirmed that this is widely patent with no significant restenosis. No disease elsewise of the LAD or its branches. 3. Left circumflex has mild irregularities, but no flow-limiting stenosis. 4. Right coronary has mild irregularities, but no flow-limiting stenosis. OVERALL IMPRESSION: Wide patency of the previously placed stents, no disease elsewise. Normal LV function. Continue medical management of the coronary artery disease and cardiac risk factors. TRANSINT:[id number] Voice Confirmation ID: [id number] DOCUMENT ID: [id number] YOKASTA TURNER MD at 1324 CC: [id number] DICTATION DATE: 10/18/18 1015 PRODUCT ASSEMBLER: 10/18/18 1138 ADM IN [facility] [address] [place] [address]
--- NOTE | ~2018-10-17 | MORECARE ---
CASE MANAGEMENT DISCHARGE SUMMARY PATIENT: NEISHA BOO UNIT: [id number] ADM DATE: 10/17/18 AGE: 57 : 62 SEX: F ROOM/BED: D.7405 AUTHOR: AMYDOC PHYSICIAN: REFERRING PHYSICIAN: FRANCIS JOHN MD DATE OF SERVICE: 10/20/18 Discharge Plan Patient Name: NEISHA [facility]OO [facility] [facility] 1960 Planned Disposition: Inpatient Rehab Anticipated Discharge Date: 10/20/18 Discharge Date: Expected LOS: 3 Initial Reviewer: [id number] Initial Review Date: 10/19/2018 Generated: 10/20/18 12:16 pm Comments DCP- Discharge Planning Updated by [id number]: Killian Jha on 10/19/18 4:[address] Patient Name: NEISHA BOO Admission Status: ER Accout number: [id number] Admission Date: 10-17-2018 : 1960 Admission Diagnosis: Attending: RFANCIS JOHN Current LOS: 2 Anticipated DC Date: 10-19-2018 Planned Disposition: Inpatient Rehab Primary Insurance: MEDICARE A & B PLANNED EXTERNAL PROVIDER: [facility]IENT [facility] Discharge Planning Comments: CM RECEIVED ORDER FOR INPATIENT REHAB PRESCREENING, MET WITH PT IN ROOM TO DISCUSS DISCHARGE PLANNING AND NEEDS. PT REPORTS LIVING AT HOME INDEPENDENTLY IN HER APARTMENT, BUT HAS BEEN STAYING AT HER SISTER'S HOUSE AT [address] [place] [address] BECAUSE SHE CANNOT CLIMB THE 18 STEPS TO GET INTO HER UPSTAIRS APARTMENT ON [facility]. PT HAS NO MEDICAL EQUIPMENT AND NO OUTSIDE SERVICES ASSISTING IN THE HOME. PT HAS OUTPATIENT DIALYSIS AT [facility] ON MWF 0630AM SCHEDULE AND RIDES THE MEDICAID BUS. CM DISCUSSED AVAILABILITY OF HOME HEALTH, REHAB SERVICES AND MEDICAL EQUIPMENT. PT KNOWS SHE NEEDS REHAB AND CANNOT GET INTO THE DETENTION FOR REHAB DUE TO COSTS OF HER MEDICATIONS. PT WANTS REHAB AT [facility] WITH GOAL TO RETURN TO HER APARTMENT AND IF STILL UNABLE TO CLIMB THE STAIRS, BACK HOME WITH FAMILY. PT REPORTS FAMILY WILL PICK HER UP FOR DISCHARGE HOME. IMPORTANT MESSAGE FROM MEDICARE PROVIDED AND EXPLAINED. CM WAITING THERAPY EVALUATIONS FOR INPATIENT REHAB SCREENING TO BE COMPLETED FOR ADMISSION DETERMINATION FROM [facility]. Fuel Cell Repairer: Killian Jha DCPIA - Discharge Planning Initial Assessment Updated by [id number]: Killian Jha on 10/19/18 4:57 pm * Is the patient Alert and Oriented? Yes * How many steps to enter\exit or inside your home? 18 * PCP DR. MOISE * [facility] [address] * Preadmission Environment Home with Family * ADLs Independent * Equipment None * Other Equipment NO MEDICAL EQUIPMENT PROVIDER PREFERENCE * List name and contact numbers for known caregivers / representatives who currently or will assist patient after discharge: VINNY ETIENNE, SISTER, * Verbal permission to speak to the caregivers and representatives has been obtained from the patient. N/A * Community resources currently utilized Other * Please name any agencies selected above. OUTPATIENT DIALYS[facility], [facility], MWF, 0630AM, MEDICAID TRANSPORTATION BUS * Additional services required to return to the preadmission environment? Yes * Can the patient safely return to the preadmission environment? Yes * Has this patient been hospitalized within the prior 30 days at any hospital? Yes Coverage Notice Reviewer: [id number] - Killian Jha Notice Issued Date-Time: 10/19/2018 13:00 Notice Type: IM Discharge Notice Notice Delivered To: Patient Relationship to Patient: Brick Setter Name: Delivery Method: HAND - Hand Delivered Yuliana Days: Prior Verbal Notification: Recipient Understood Notice: Yes Recipient Signature: Yes Med Rec Note Co-signed by Attending: Coverage Notice Comment: Last DP export: 10/19/18 4:07 Patient Name: NEISHA BOO Page 00561 at 1117 All edits/amendments must be made on the electronic document DICTATION DATE: 10/20/18 1116 GUEST RELATIONS COORDINATOR: CAMILLE 10/20/18 1116 RPT#: [id number] DC DATE: STATUS: ADM IN [facility] [address] [place] [address] END OF REPORT
--- NOTE | ~2018-10-17 | MORECARE ---
CASE MANAGEMENT DISCHARGE SUMMARY PATIENT: NEISHA BOO UNIT: [id number] ADM DATE: 10/17/18 AGE: 57 : 62 SEX: F ROOM/BED: D.8430 AUTHOR: SEBASTIAN REYES PHYSICIAN: REFERRING PHYSICIAN: FRANCIS JOHN MD DATE OF SERVICE: 10/20/18 Discharge Plan Patient Name: NEISHA BOO Facility: [facility]:[place] : 1960 Planned Disposition: Inpatient Rehab Anticipated Discharge Date: 10/20/18 Discharge Date: Expected LOS: 3 Initial Reviewer: [email or web address] Initial Review Date: 10/19/2018 Generated: 10/20/18 12:33 pm Comments DCP- Discharge Planning Updated by [email or web address]: Killian Jha on 10/20/18 10:[address] Patient Name: NEISHA BOO Encounter No: [id number] : 1960 Primary Insurance: MEDICARE A & B Anticipated DC Date: 10-20-2018 Planned Disposition: Inpatient Rehab External Planned Provider: [facility] INPATIENT [facility] DCP follow-up note: CM SPOKE TO HIRAM OF INPATIENT REHAB, THEY PLAN TO ACCEPT PT TODAY FOR REHAB. CM REVIEWED CHART WITH NURSING MESSAGE FROM DOCTOR FOR DISCHARGE TODAY TO REHAB IF ACCEPTED. PT NOTIFIED, IN AGREEMENT WITH DISCHARGE TO INPATIENT REHAB. CM NOTIFIED RENAL RESEARCH PHARMACIST WHO AGREED WITH DISCHARGE TO REHAB TODAY. SHEET IRONWORKER NURSE NOTIFIED. CM CALLED AND NOTIFIED LESTER OF INPATIENT REHAB. [facility] IN[facility] TO CONTACT MED 2 NURSE WITH ROOM NUMBER WHEN READY TO ACCEPT PT AND NURSE REPORT. Killian Jha CASE MANAGEMENT DCP- Discharge Planning Updated by [id number]: Killian Jha on 10/19/18 4:[address] Patient Name: NEISHA BOO Admission Status: ER Accout number: [id number] Admission Date: 10-17-2018 : 1960 Admission Diagnosis: Attending: FRANCIS JOHN Current LOS: 2 Anticipated DC Date: 10-19-2018 Planned Disposition: Inpatient Rehab Primary Insurance: MEDICARE A & B PLANNED EXTERNAL PROVIDER: [facility] INPAT[facility] Discharge Planning Comments: CM RECEIVED ORDER FOR INPATIENT REHAB PRESCREENING, MET WITH PT IN ROOM TO DISCUSS DISCHARGE PLANNING AND NEEDS. PT REPORTS LIVING AT HOME INDEPENDENTLY IN HER APARTMENT, BUT HAS BEEN STAYING AT HER SISTER'S HOUSE AT [address] [place] [address] BECAUSE SHE CANNOT CLIMB THE 18 STEPS TO GET INTO HER UPSTAIRS APARTMENT ON [facility]. PT HAS NO MEDICAL EQUIPMENT AND NO OUTSIDE SERVICES ASSISTING IN THE HOME. PT HAS OUTPATIENT DIALYSIS AT [facility] ON MWF 0630AM SCHEDULE AND RIDES THE MEDICAID BUS. CM DISCUSSED AVAILABILITY OF HOME HEALTH, REHAB SERVICES AND MEDICAL EQUIPMENT. PT KNOWS SHE NEEDS REHAB AND CANNOT GET INTO THE LONG-TERM FOR REHAB DUE TO COSTS OF HER MEDICATIONS. PT WANTS REHAB AT [facility] WITH GOAL TO RETURN TO HER APARTMENT AND IF STILL UNABLE TO CLIMB THE STAIRS, BACK HOME WITH FAMILY. PT REPORTS FAMILY WILL PICK HER UP FOR DISCHARGE HOME. IMPORTANT MESSAGE FROM MEDICARE PROVIDED AND EXPLAINED. CM WAITING THERAPY EVALUATIONS FOR INPATIENT REHAB SCREENING TO BE COMPLETED FOR ADMISSION DETERMINATION FROM [facility]. Rebar Fabricator: Killian Jha DCPIA - Discharge Planning Initial Assessment Updated by [email or web address]: Killian Jha on 10/19/18 4:57 pm * Is the patient Alert and Oriented? Yes * How many steps to enter\exit or inside your home? 18 * PCP DR. MOISE * [facility] [address] * Preadmission Environment Home with Family * ADLs Independent * Equipment None * Other Equipment NO MEDICAL EQUIPMENT PROVIDER PREFERENCE * List name and contact numbers for known caregivers / representatives who currently or will assist patient after discharge: VINNY ETIENNE, SISTER, * Verbal permission to speak to the caregivers and representatives has been obtained from the patient. N/A * Community resources currently utilized Other * Please name any agencies selected above. OUTPATIENT DIALYSIS, [facility], MWF, 0630AM, MEDICAID TRANSPORTATION BUS * Additional services required to return to the preadmission environment? Yes * Can the patient safely return to the preadmission environment? Yes * Has this patient been hospitalized within the prior 30 days at any hospital? Yes Coverage Notice Reviewer: [id number] - Killian Jha Notice Issued Date-Time: 10/19/2018 13:00 Notice Type: IM Discharge Notice Notice Delivered To: Patient Relationship to Patient: Food Service Cashier Name: Delivery Method: HAND - Hand Delivered Yuliana Days: Prior Verbal Notification: Recipient Understood Notice: Yes Recipient Signature: Yes Med Rec Note Co-signed by Attending: Coverage Notice Comment: Last DP export: 10/20/18 10:26 Patient Name: NEISHA BOO Page 92139 at 1133 All edits/amendments must be made on the electronic document DICTATION DATE: 10/20/18 113 SPOOLER: CAMILLE 10/20/18 1133 RPT#: [id number] DC DATE: STATUS: ADM IN [facility] [address] [place] [address] END OF REPORT
--- NOTE | ~2018-10-17 | HEMODYNAMI ---
PATIENT:NEISHA BOO MEDICAL RECORD: [id number] : [birth year] LOCATION:[facility] D.[address] [facility]# [id number] ADMISSION DATE: 10/17/18 Generatedon:10/18/201810:13 Patient name: NEISHA BOO Patient #: [id number] : 1960 Date of study: 10/18/2018 Page: Of Hemodynamic Procedure Report Patient Data Patient Demographics Procedure consent was obtained First Name: NEISHA Gender: Female Last Name: EMA : 1960 [facility] Initial: Lenore Age: 57 year(s) Patient #: [id number] Race: Black SSN: [id number] Additional ID: [id number] Contact details Address: [address] [place] [address] b8 State: [place] City: [facility] Zip code: [address] Past Medical History Allergies Allergen Reaction Date Comments Reported Other allergy 01/22/2015 Hydrocodone, Morphine, Arg[place], Statins, Allopurinol Morphine 09/11/2016 Other allergy 09/11/2016 allopurinol Other allergy 11/23/2016 morphine,pravastatin, allopurinol Other allergy 09/17/2017 Morphine, Allopurinol, pravastatin, azithromycin. Other allergy 10/18/2018 Morphine, Pravastatin, Azithromycin, tramadol, Lyrica, Allopurinaol, Cymbalta Admission Admission Data Admission Date: 10/17/2018 Admission Time: 10:13 Room #: D.2117 Lab Results Lab Result Date: 10/18/2018 Lab Result Time: 0:00 Biochemistry Name Units Result Min Max BUN mg/dl 32 --(----)-* 7 18 Creatinine mg/dl 8.5 --(----)-* 0.6 1.3 CBC Name Units Result Min Max Hemoglobin g/dl 9.3 *-(----)-- 13.5 17.5 Procedure Procedure Types Cath Procedure Diagnostic Procedure LHC LHC w/Coronaries FFR/IVUS Intra-Coronary IVUS Initial Sedation Charges Moderate Sedation up to 15 minutes Procedure Description Procedure Date Procedure Date: 10/18/2018 Procedure Start Time: 9:59 Procedure End Time: 10:13 Procedure Staff Name Function Jonah Arce MD Performing Physician Nabila Zayas RT Monitor Leonor Owens RT Scrub Jeff Mckinnon RN Nurse Procedure Data Cath Procedure Fluoroscopy Diagnostic fluoroscopy Total fluoroscopy Time: 5.1 time: 5.1 min min Diagnostic fluoroscopy Total fluoroscopy dose: dose: 1091 mGy 1091 mGy Contrast Material Contrast Material Type Amount (ml) Isovue 300 124 Entry Location Entry Primary Successful Side Size Upsize Upsize Entry Closure Succes sful Closure Location (Fr) 1 (Fr) 2 (Fr) Remarks Device Remarks Femoral Right 5 Fr 6 Fr Exoseal artery Short Estimated blood loss: 10 ml Diagnostic catheters Device Type Used For End Catheter Placement MULTIPACK Pigtail 5 Fr Procedure catheter MULTIPACK JL 4.0 5Fr Procedure catheter MULTIPACK 3DRC 5Fr Procedure catheter Procedure Complications No complications Procedure Medications Medication Administration Route Dosage 0.9% NaCl I.V. 10 ml/hr Oxygen etCO2 Nasal cannula 2 l/min Heparin Flush Bag added to field 2 bags (1000units/500ml NS) Lidocaine 2% added to field 20 Benadryl I.V. 50 mg Versed I.V. 2 mg Fentanyl I.V. 100 mcg Fentanyl I.V. 50 mcg Hemodynamics Rest HGB: 9.3 (g/dl) Heart Rate: 87 (bpm) Snapshots Pre Cath Intra NCS Post Cath Vital Signs Time Heart Resp SPO2 etCO2 NIBP (mmHg) Rhythm Pain Sedation Rate (ipm) (%) (mmHg) Status Level (bpm) 9:31:41 90 10 100 35.5 133/75(107) NSR 0 (11) 10(A) , No pain 9:35:49 85 20 100 29.4 121/69(82) NSR 0 (11) 10(A) , No pain 9:39:54 84 27 100 28.6 114/63(85) NSR 0 (11) 10(A) , No pain 9:44:00 83 24 100 24.9 102/57(76) NSR 0 (11) 10(A) , No pain 9:48:02 84 22 100 27.1 100/59(76) NSR 0 (11) 10(A) , No pain 9:51:58 84 24 99 28.6 116/71(83) NSR 0 (11) 10(A) , No pain 9:56:03 84 18 99 28.6 104/58(73) NSR 0 (11) 10(A) , No pain 10:00:11 82 25 97 23.4 97/41(73) NSR 0 (11) 10(A) , No pain 10:04:11 85 20 99 25.6 104/59(80) NSR 0 (11) 10(A) , No pain 10:08:10 86 25 98 33.1 105/61(82) NSR 0 (11) 9(A) , No pain 10:12:10 86 25 98 32.4 117/65(89) NSR 0 (11) 9(A) , No pain Medications Time Medication Route Dose Verified Delivered Reason Notes Eff ectiveness by by 9:32:49 0.9% NaCl I.V. 10 Jeff Jeff Per ml/hr Ino Mckinnon physician RN RN 9:32:59 Oxygen etCO2 2 Jeff Jeff Per Nasal l/min Ino Mckinnon physician cannula RN RN 9:33:11 Heparin Flush added 2 Jeff Jeff used for Bag to bags Lorigan Lorigan procedure (1000units/500ml field RN RN NS) 9:33:24 Lidocaine 2% added 20ml Jeff Jeff for local to vial Lorigan Lorigan anesthetic field RN RN 9:47:04 Benadryl I.V. 50 mg Jeff Jeff Per Ino Mckinnon physician RN RN 9:52:28 Versed I.V. 2 mg Jeff Jeff for Lorigan Lorigan sedation RN RN 9:52:37 Fentanyl I.V. 100 Jeff Jeff for mcg Lorigan Lorigan sedation RN RN 10:00:37 Fentanyl I.V. 50 Jeff Jeff for mcg Lorigan Lorigan sedation RN sorter laundry articles Log Time Note 9:03:51 Informed consent obtained and on chart 9:03:54 Diagnostic Cath Status : Elective 9:04:20 Jeff Mckinnon RN sent for patient. Start room use. 9:04:21 Time tracking: Regular hours (M-F 7:00 - 5:00) 9:04:26 Plan of Care:Hemodynamics will remain stable., Cardiac rhythm will remain stable., Comfort level will be maintained., Respiratory function will remain adequate., Patient/ family verbilizes understanding of procedure., Procedure tolerated without complication., Recovers from procedure without complications.. 9:20:43 Patient received from Med II to CCL 2 Alert and oriented. Tansferred to table in Supine position. 9:20:44 Warm blankets applied, and lissy hugger turned on for patient comfort. 9:20:45 Correct patient and procedure confirmed by team. 9:20:45 ECG and BP/O2 sat monitors applied to patient. 9:30:33 Vital chart was started 9:32:49 0.9% NaCl 10 ml/hr I.V. was administered by Jeff Mckinnon RN; Per physician; 9:32:59 Oxygen 2 l/min etCO2 Nasal cannula was administered by Jeff Mckinnon RN; Per physician; 9:33:11 Heparin Flush Bag (1000units/500ml NS) 2 bags added to field was administered by Jeff Mckinnon RN; used for procedure; 9:33:24 Lidocaine 2% 20ml vial added to field was administered by Jeff Mckinnon RN; for local anesthetic; 9:35:31 Baseline sample Acquired. 9:35:39 Rhythm: sinus rhythm 9:35:41 Full Disclosure recording started 9:36:05 H&P Date Dictated: 10/17/2018 Within 30 days and on chart., H&P Addendum completed by physician on day of procedure. (MUST COMPLETE FOR ALL OUTPATIENTS). 9:36:08 Pre-procedure instructions explained to patient. 9:36:10 Pre-op teaching completed and patient verbalized understanding. 9:36:12 Family in waiting room. 9:36:15 Patient NPO since Midnight. 9:37:08 Patient allergic to Other allergyMorphine, Pravastatin, Azithromycin, tramadol, Lyrica, Allopurinaol, Cymbalta 9:37:13 Is the patient allergic to Iodine/contrast media? No. 9:37:14 Was the patient premedicated? Yes 9:37:15 Is patient on blood thinner?Yes 9:37:18 ACC The patient was administered the following blood thiners within the last 24 hours: ACCPlavix 9:37:20 Patient diabetic? Yes. 9:37:22 If diabetic: On Metformin? No 9:37:25 Snore? Yes 9:37:27 Sleep apnea? No 9:37:29 Deviated septum? No 9:37:30 Opens mouth fully? Yes 9:37:31 Sticks out tongue? Yes 9:37:35 Dentures? No ? 9:37:42 Patient pain scale 0/10 ?. 9:37:51 IV patent on arrival in right forearm with 0.9% NaCl at [facility]. 9:37:57 Lab results completed and on chart. 9:38:39 Lab Result : BUN 32 mg/dl 9:38:39 Lab Result : Creatinine 8.5 mg/dl 9:38:39 Lab Result : Hemoglobin 9.3 g/dl 9:38:44 Right groin area was prepped with chlora-prep and draped in sterile fashion 9:38:45 Alarms reviewed by R. N. 9:38:46 Sharps counted by scrub and verified by R.N. 9:38:47 Physician paged 9:38:49 Physician arrived 9:41:18 Zero performed for pressure channel P1 9:41:31 Zero performed for pressure channel P1 9:41:41 Zero performed for pressure channel P1 9:47:04 Benadryl 50 mg I.V. was administered by Jeff Mckinnon RN; Per physician; 9:49:21 Use device set Femoral Dx 9:49:22 ACIST Syringe (68209) opened to sterile field. 9:49:22 Bag Decanter (2002) opened to sterile field. 9:49:23 Medline Cath Pack ([id number]) opened to sterile field. 9:49:23 DIAGNOSTIC WIRE .035 260cm J wire (998227) opened to sterile field. 9:49:24 ACIST Hand Control (04377) opened to sterile field. 9:49:25 ACIST Manifold (81991) opened to sterile field. 9:49:29 Tegaderm 4 x 4 (1626W) opened to sterile field. 9:49:31 SHEATH 5FR [place] (KUZ247) opened to sterile field. 9:51:02 --------ALL STOP TIME OUT------ 9:51:03 Final Timeout: patient, procedure, and site verified with staff and physician. All members of the team are in agreement. 9:51:04 Right groin site verified by team. 9:51:07 Physical assessment completed. ASA score P 2 - A patient with mild systemic disease as per Jonah Arce MD. 9:51:11 Sedation plan: IV Moderate Sedation Medication:Versed, Fentanyl 9:52:28 Versed 2 mg I.V. was administered by Jeff Mckinnon RN; for sedation; 9:52:37 Fentanyl 100 mcg I.V. was administered by Jeff Mckinnon RN; for sedation; 9:58:57 Procedure started. 9:59:01 Local anesthetic to right femoral artery with Lidocaine 2% by Jonah Arce MD.INITIAL ACCESS ONLY 9:59:52 A 5 Fr sheath was inserted into the Right Femoral artery 10:00:05 DIAGNOSTIC Multipack 5Fr catheter set (AL8675) opened to sterile field. 10:00:12 A MULTIPACK Pigtail 5 Fr catheter was advanced over the wire and used for Procedure. 10:00:16 LV gram done using TATUM 10:00:37 Fentanyl 50 mcg I.V. was administered by Jeff Mckinnon RN; for sedation; 10:01:05 EF : 65 % 10:01:07 Catheter removed. 10:01:15 A MULTIPACK JL 4.0 5Fr catheter was advanced over the wire and used for Procedure. 10:02:05 LCA angiography performed. 10:03:46 Catheter removed. 10:03:53 A MULTIPACK 3DRC 5Fr catheter was advanced over the wire and used for Procedure. 10:03:56 RCA angiography performed. 10:03:58 Catheter removed. 10:04:09 SHEATH 6FR [place] (DMS038) opened to sterile field. 10:04:09 INFLATOR Merit BasixCompak (FC9750) opened to sterile field. 10:04:10 CHOICE PT Extra Support 182cm wire ([id number]) opened to sterile field. 10:04:11 GUIDE 6FR XBLAD 3.5 catheter ([id number]) opened to sterile field. 10:04:18 Proceeding to intervention. 10:04:38 Sheath upsized to a 6 Fr Short. 10:04:50 6 Fr xblad3.5 guide catheter was inserted over the wire 10:05:09 [place] IVUS Catheter (22765D) opened to sterile field. 10:05:43 choice ex wire advanced. 10:06:43 Wire advanced across lesion. 10:09:04 Wire exchanged for PT graphix 10:09:52 GRAPHIX 182cm guide wire ([id number]) opened to sterile field. 10:10:00 IVUS catheter advanced over wire. 10:10:37 EXOSEAL 6Fr (EX600) opened to sterile field. 10:10:43 Wire removed. 10:10:50 IVUS catheter removed over wire. 10:10:54 Guide catheter removed. 10:11:17 Sheath removed intact; hemostasis achieved with Exoseal to the Right Femoral artery. 10:11:19 Procedure ended.(Physican Out) 10:11:41 Fluoroscopy time 05.10 minutes. 10:11:45 Fluoroscopy dose: 1091 mGy 10:11:45 Flurop Dose total: 1091 10:11:50 Contrast amount:Isovue 300 124ml. 10:11:53 Insertion/operative site no bleeding no hematoma. 10:12:05 Post right femoral artery:stable 10:12:14 Post-procedure physical assessment completed. ASA score P 2 - A patient with mild systemic disease as per Jonah Arce MD. 10:12:18 Post procedure rhythm: unchanged. 10:12:21 Estimated blood loss: 10 ml 10:12:23 Post procedure instruction explained to patient.Patient verbalizes understanding. 10:12:43 Procedure type changed to Cath procedure, Diagnostic procedure, LHC, LHC w/Coronaries, FFR/IVUS, Intra-Coronary IVUS Initial, Sedation Charges, Moderate Sedation up to 15 minutes 10:12:45 Procedure and supply charges have been captured, reviewed, submitted and are correct. 10:13:10 Procedure Complication : No complications 10:13:12 Vital chart was stopped 10:13:13 See physician's report for complete and final results. 10:13:15 Report given to Pre/Post Procedure Room. 10:13:18 Patient transfered to Pre/Post Procedure Room with Stretcher. 10:13:20 Procedure ended. 10:13:20 Full Disclosure recording stopped 10:13:23 End room use (Document Last) Device Usage Item Name Manufacture Quantity Catalog Number Hospital Part Current Minim al Lot# / Charge Number Stock Stock Serial# Code [place] [address] 84523 861939 977831 513624 20 Syringe Medical (50836) Systems Inc Bag Microtek 1 2001S 945501 82562 022604 5 Decanter Medical Inc. () Medline Medline 1 [id number] 028444 80790 207071 5 Cath Pack ([id number]) DIAGNOSTIC St Ajith 1 141388 723245 870895 685733 30 WIRE .035 260cm J wire (390411) ACIST Hand Acist 1 37171 359569 402717 648292 5 Control Medical (02135) Systems Inc ACIST Acist 1 51928 010704 501881 228288 5 Manifold Medical (20810) Systems Inc Tegaderm 4 3M 1 1626W 889740 922437 679579 5 x 4 (1626W) SHEATH 5FR Terumo 1 IFO184 305298 241174 877686 5 [place] (EID932) DIAGNOSTIC Cardinal 1 US3164 608383 58386 217853 30 Multipack Health 5Fr catheter set (WG0814) MULTIPACK Cardinal 1 470034 5 Pigtail 5 Health Fr catheter MULTIPACK Cardinal 1 497225 5 JL 4.0 5Fr Health catheter MULTIPACK Cardinal 1 825965 5 3DRC 5Fr Health catheter SHEATH 6FR Terumo 1 VYO498 289366 226677 573633 40 [place] (GOU500) INFLATOR Merit 1 ZM0395 579455 253574 584801 15 [facility] Medical BasixCompak (KM5221) CHOICE PT [place] 1 [id number] 558155 801068 168981 5 Extra Scientific Support 182cm wire ([id number]) GUIDE 6FR Cardinal 1 [id number] 672819 792080 017665 10 XBLAD 3.5 Health catheter ([id number]) [place] 1 53954N 384906 217790 870036 8 [place] IVUS Catheter (05586X) GRAPHIX [place] 1 [id number] 368056 745419 068430 5 182cm guide Scientific wire ([id number]) EXOSEAL 6Fr Cardinal 1 EX600 941482 095835 524548 10 (EX600) Health Signature Audit [place] Stage Time Signature Unsigned Intra-Procedure 10/18/2018 Nabila Zayas 10:13:48 AM RT(R) Signatures Monitor : Nabila Zayas Signature : RT Date : Time : [address] [place] [address]
--- NOTE | ~2018-10-17 | CN ---
PATIENT NAME:NEISHA TORO MEDICAL RECORD: [id number] : 62 LOCATION:D. D.2117 ADMIT DATE: 10/17/18 ACCOUNT: [id number] CONSULTING PHYSICIAN: YOKASTA TURNER MD REFERRING PHYSICIAN: FRANCIS JOHN MD DATE OF CONSULTATION: 10/17/2018 DIAGNOSES: 1. Angina. 2. Palpitations. 3. Coronary artery disease. 4. Previous PTCA stent. 5. Orthostatic hypotension. 6. End-stage renal failure, on dialysis. HISTORY OF PRESENT ILLNESS: Mrs. Toro has a past history of coronary artery disease, cardiac stenting in the distant past, who began having her problems with a few months ago where she had to have a decrease in her blood pressure medications and would still have significant orthostasis as well as her blood pressure bottoming out in dialysis. She is now on ProAmatine, but still on carvedilol. She began having severe episode last night where she felt like she was almost blacking out. She did get a chest pressure with that. She has been more short of breath over the past few months as well. PHYSICAL EXAMINATION: GENERAL APPEARANCE: Well-nourished, well-developed, appears stated age. Level of distress, comfortable. PSYCHIATRIC: Mental status, alert, normal affect. Orientation, oriented to time, place and person. EYES: Lids and conjunctiva, noninjected. No discharge, no pallor. ENT: Lips, teeth, gums, normal dentition. Oropharynx, no cyanosis, no pallor. NECK: Carotid arteries, bilateral normal upstroke, no bruits, no thrills. JUGULAR VEINS: No jugular venous pressure or distention. CERVICAL LYMPH NODES: Nontender, nonenlarged. THYROID: Not enlarged. Nontender. No nodules. LUNGS: Respiratory effort, unlabored. CHEST: Normal curvature. No thoracic deformity. No chest wall tenderness. Percussion, resonant. Auscultation, clear. No wheezes, no rales, no rhonchi. CARDIOVASCULAR: Precordial exam, nondisplaced. No heaves or pericardial thrills. Rate and rhythm, regular. Heart sounds, normal S1, normal S2. No S3, no gallop, no rub. Systolic murmur, not heard. Diastolic murmur, not heard. EXTREMITIES: No cyanosis, no edema. Peripheral pulses, full and equal in all extremities, except as noted. No bruits appreciated. ABDOMEN: Soft, nondistended. Normal aorta. No bruit. Nontender. No masses. Liver, nontender, no hepatomegaly. Spleen, nontender, no splenomegaly. MUSCULOSKELETAL: No joint tenderness. No joint swelling. No erythema. NEUROLOGICAL: Normal gait, normal strength, normal tone. SKIN: Warm and dry. OVERALL IMPRESSION: Worsening episodes of orthostasis, now with chest discomfort, shortness of breath. She very well may have hemodynamically significant recurrent coronary artery disease, which would make sense for global ischemia to give her hypotension. We will proceed with coronary angiography. Today is her dialysis day, we will proceed with coronary angiography tomorrow. CONSULT REPORT [id number] NEISHA TORO TRANSINT:[id number] Voice Confirmation ID: [id number] DOCUMENT ID: [id number] YOKASTA TURNER MD at 1324 CC: [id number] DICTATION DATE: 10/17/1837 COMMUNICATION ENGINEER: 10/17/18 1242 ADM IN [facility] [address] [place] [address]
--- NOTE | ~2018-10-17 | MORECARE ---
CASE MANAGEMENT DISCHARGE SUMMARY PATIENT: NEISHA BOO UNIT: [id number] ADM DATE: 10/17/18 AGE: 57 : 62 SEX: F ROOM/BED: D.7190 AUTHOR: AMYDOC PHYSICIAN: REFERRING PHYSICIAN: FRANCIS JOHN MD DATE OF SERVICE: 10/20/18 Discharge Plan Patient Name: NEISHA BOO [facility] [facility] 1960 Planned Disposition: Inpatient Rehab Anticipated Discharge Date: 10/20/18 Discharge Date: Expected LOS: 3 Initial Reviewer: [email or web address] Initial Review Date: 10/19/2018 Generated: 10/20/18 12:26 pm Comments DCP- Discharge Planning Updated by [email or web address]: Killian Jha on 10/19/18 4:[address] Patient Name: NEISHA BOO Admission Status: ER Accout number: [id number] Admission Date: 10-17-2018 : 1960 Admission Diagnosis: Attending: FRANCIS JOHN Current LOS: 2 Anticipated DC Date: 10-19-2018 Planned Disposition: Inpatient Rehab Primary Insurance: MEDICARE A & B PLANNED EXTERNAL PROVIDER: [facility] INPATIENT REHAB Discharge Planning Comments: CM RECEIVED ORDER FOR INPATIENT REHAB PRESCREENING, MET WITH PT IN ROOM TO DISCUSS DISCHARGE PLANNING AND NEEDS. PT REPORTS LIVING AT HOME INDEPENDENTLY IN HER APARTMENT, BUT HAS BEEN STAYING AT HER SISTER'S HOUSE AT [address] [place] [address] BECAUSE SHE CANNOT CLIMB THE 18 STEPS TO GET INTO HER UPSTAIRS APARTMENT ON [facility]. PT HAS NO MEDICAL EQUIPMENT AND NO OUTSIDE SERVICES ASSISTING IN THE HOME. PT HAS OUTPATIENT DIALYSIS AT [facility] ON MWF 0630AM SCHEDULE AND RIDES THE MEDICAID BUS. CM DISCUSSED AVAILABILITY OF HOME HEALTH, REHAB SERVICES AND MEDICAL EQUIPMENT. PT KNOWS SHE NEEDS REHAB AND CANNOT GET INTO THE [facility] FOR REHAB DUE TO COSTS OF HER MEDICATIONS. PT WANTS REHAB AT [facility] WITH GOAL TO RETURN TO HER APARTMENT AND IF STILL UNABLE TO CLIMB THE STAIRS, BACK HOME WITH FAMILY. PT REPORTS FAMILY WILL PICK HER UP FOR DISCHARGE HOME. IMPORTANT MESSAGE FROM MEDICARE PROVIDED AND EXPLAINED. CM WAITING THERAPY EVALUATIONS FOR INPATIENT REHAB SCREENING TO BE COMPLETED FOR ADMISSION DETERMINATION FROM [facility] INPATIENT REHAB. [place] House Operator: Killian Jha DCPIA - Discharge Planning Initial Assessment Updated by [id number]: Killian Jha on 10/19/18 4:57 pm * Is the patient Alert and Oriented? Yes * How many steps to enter\exit or inside your home? 18 * PCP DR. MOISE * [facility] [address] * Preadmission Environment Home with Family * ADLs Independent * Equipment None * Other Equipment NO MEDICAL EQUIPMENT PROVIDER PREFERENCE * List name and contact numbers for known caregivers / representatives who currently or will assist patient after discharge: VINNY ETIENNE, SISTER, * Verbal permission to speak to the caregivers and representatives has been obtained from the patient. N/A * Community resources currently utilized Other * Please name any agencies selected above. OUTPATIENT DIALYSIS, [facility], MWF, 0630AM, MEDICAID TRANSPORTATION BUS * Additional services required to return to the preadmission environment? Yes * Can the patient safely return to the preadmission environment? Yes * Has this patient been hospitalized within the prior 30 days at any hospital? Yes Coverage Notice Reviewer: [id number] - Killian Jha Notice Issued Date-Time: 10/19/2018 13:00 Notice Type: IM Discharge Notice Notice Delivered To: Patient Relationship to Patient: Parking Meter Mechanic Name: Delivery Method: HAND - Hand Delivered Yuliana Days: Prior Verbal Notification: Recipient Understood Notice: Yes Recipient Signature: Yes Med Rec Note Co-signed by Attending: Coverage Notice Comment: Last DP export: 10/20/18 10:17 Patient Name: NEISHA BOO Page 41397 at 1126 All edits/amendments must be made on the electronic document DICTATION DATE: 10/20/18 1126 CARD READER: CAMILLE 10/20/18 1126 RPT#: [id number] DC DATE: STATUS: ADM IN [facility] [address] [place] [address] END OF REPORT
--- NOTE | ~2018-10-17 | MORECARE ---
CASE MANAGEMENT DISCHARGE SUMMARY PATIENT: NEISHA BOO UNIT: [id number] ADM DATE: 10/17/18 AGE: 57 : 62 SEX: F ROOM/BED: D.2639 AUTHOR: AMYDOC PHYSICIAN: REFERRING PHYSICIAN: FRANCIS JOHN MD DATE OF SERVICE: 10/19/18 Discharge Plan Patient Name: NEISHA BOO [facility] [facility] 1960 Planned Disposition: Inpatient Rehab Anticipated Discharge Date: 10/19/18 Discharge Date: Expected LOS: 2 Initial Reviewer: [email or web address] Initial Review Date: 10/19/2018 Generated: 10/19/18 6:07 pm Comments DCP- Discharge Planning Updated by [email or web address]: Killian Jha on 10/19/18 4:[address] Patient Name: NEISHA BOO Admission Status: ER Accout number: [id number] Admission Date: 10-17-2018 : 1960 Admission Diagnosis: Attending: FRANCIS JOHN Current LOS: 2 Anticipated DC Date: 10-19-2018 Planned Disposition: Inpatient Rehab Primary Insurance: MEDICARE A & B PLANNED EXTERNAL PROVIDER: [facility] INPATIENT REHAB Discharge Planning Comments: CM RECEIVED ORDER FOR INPATIENT REHAB PRESCREENING, MET WITH PT IN ROOM TO DISCUSS DISCHARGE PLANNING AND NEEDS. PT REPORTS LIVING AT HOME INDEPENDENTLY IN HER APARTMENT, BUT HAS BEEN STAYING AT HER SISTER'S HOUSE AT [address] [place] [address] BECAUSE SHE CANNOT CLIMB THE 18 STEPS TO GET INTO HER UPSTAIRS APARTMENT ON [facility]. PT HAS NO MEDICAL EQUIPMENT AND NO OUTSIDE SERVICES ASSISTING IN THE HOME. PT HAS OUTPATIENT DIALYSIS AT [facility] ON MWF 0630AM SCHEDULE AND RIDES THE MEDICAID BUS. CM DISCUSSED AVAILABILITY OF HOME HEALTH, REHAB SERVICES AND MEDICAL EQUIPMENT. PT KNOWS SHE NEEDS REHAB AND CANNOT GET INTO THE LONG-TERM FOR REHAB DUE TO COSTS OF HER MEDICATIONS. PT [facility]AB AT [facility] WITH GOAL TO RETURN TO HER APARTMENT AND IF STILL UNABLE TO CLIMB THE STAIRS, BACK HOME WITH FAMILY. PT REPORTS FAMILY WILL PICK HER UP FOR DISCHARGE HOME. IMPORTANT MESSAGE FROM MEDICARE PROVIDED AND EXPLAINED. CM WAITING THERAPY EVALUATIONS FOR INPATIENT REHAB SCREENING TO BE COMPLETED FOR ADMISSION DETERMINATION FROM [facility]. Licensed Mental Health Counselor: Killian Jah DCPIA - Discharge Planning Initial Assessment Updated by [id number]: Killian Jha on 10/19/18 4:57 pm * Is the patient Alert and Oriented? Yes * How many steps to enter\exit or inside your home? 18 * PCP DR. MOISE * [facility] [address] * Preadmission Environment Home with Family * ADLs Independent * Equipment None * Other Equipment NO MEDICAL EQUIPMENT PROVIDER PREFERENCE * List name and contact numbers for known caregivers / representatives who currently or will assist patient after discharge: VINNY ETIENNE, SISTER, * Verbal permission to speak to the caregivers and representatives has been obtained from the patient. N/A * Community resources currently utilized Other * Please name any agencies selected above. OUTPATIENT DIALYSIS, [facility], MWF, 0630AM, MEDICAID TRANSPORTATION BUS * Additional services required to return to the preadmission environment? Yes * Can the patient safely return to the preadmission environment? Yes * Has this patient been hospitalized within the prior 30 days at any hospital? Yes Coverage Notice Reviewer: [id number] - Killian Jha Notice Issued Date-Time: 10/19/2018 13:00 Notice Type: IM Discharge Notice Notice Delivered To: Patient Relationship to Patient: Letter Of Credit Document Examiner Name: Delivery Method: HAND - Hand Delivered Yuliana Days: Prior Verbal Notification: Recipient Understood Notice: Yes Recipient Signature: Yes Med Rec Note Co-signed by Attending: Coverage Notice Comment: Last DP export: 10/19/18 4:00 Patient Name: NEISHA BOO Page 55067 at 1707 All edits/amendments must be made on the electronic document DICTATION DATE: 10/19/181706 HIGH SCHOOL HOME ECONOMICS TEACHER: CAMILLE 10/19/181706 RPT#: [id number] DC DATE: STATUS: ADM IN [facility] [address] [place] [address] END OF REPORT
--- NOTE | ~2018-10-17 | MORECARE ---
CASE MANAGEMENT DISCHARGE SUMMARY PATIENT: NEISHA BOO UNIT: [id number] ADM DATE: 10/17/18 AGE: 57 : 62 SEX: F ROOM/BED: D.[facility]7 AUTHOR: SEBASTIAN REYES PHYSICIAN: REFERRING PHYSICIAN: FRANCIS JOHN MD DATE OF SERVICE: 10/19/18 Discharge Plan Patient Name: NEISHA BOO Facility: [facility]:[place] : 1960 Planned Disposition: Inpatient Rehab Anticipated Discharge Date: 10/19/18 Discharge Date: Expected LOS: 2 Initial Reviewer: [email or web address] Initial Review Date: 10/19/2018 Generated: 10/19/18 5:59 pm DCPIA - Discharge Planning Initial Assessment Updated by [email or web address]: Killian Jha on 10/19/18 4:57 pm * Is the patient Alert and Oriented? Yes * How many steps to enter\exit or inside your home? 18 * PCP DR. MOISE * Pharmacy [facility] * Preadmission Environment Home with Family * ADLs Independent * Equipment None * Other Equipment NO MEDICAL EQUIPMENT PROVIDER PREFERENCE * List name and contact numbers for known caregivers / representatives who currently or will assist patient after discharge: VINNY ETIENNE, , * Verbal permission to speak to the caregivers and representatives has been obtained from the patient. N/A * Community resources currently utilized Other * Please name any agencies selected above. OUTPATIENT DIALYSIS, [facility], MWF, 0630AM, MEDICAID TRANSPORTATION BUS * Additional services required to return to the preadmission environment? Yes * Can the patient safely return to the preadmission environment? Yes * Has this patient been hospitalized within the prior 30 days at any hospital? Yes Coverage Notice Reviewer: [id number] - Killian Jha Notice Issued Date-Time: 10/19/2018 13:00 Notice Type: IM Discharge Notice Notice Delivered To: Patient Relationship to Patient: Shingle Packer Name: Delivery Method: HAND - Hand Delivered Yuliana Days: Prior Verbal Notification: Recipient Understood Notice: Yes Recipient Signature: Yes Med Rec Note Co-signed by Attending: Coverage Notice Comment: Patient Name: NEISHA BOO Page 59529 at 1700 All edits/amendments must be made on the electronic document DICTATION DATE: 10/19/181658 TAPPER OPERATOR: CAMILLE 10/19/181658 RPT#: [id number] DC DATE: STATUS: ADM IN [facility] [address] [place] [address] END OF REPORT
[~2018-10-17 08:34] MED LIST changes: +COREG 3.1253.125 MG PO; +MIDODRINE HCL2.5 MG PO; +REQUIP0.25 MG PO; -REQUIP0.5 MG PO; -ZYPREXA10 MG PO; +ZYPREXA2.5 MG PO
[2018-10-17] MEDS ORDERED: MIDODRINE HCL10 MG PO (08:49)
[2018-10-17 08:59] LABS: HEMATOCRIT 29.5 % (36.0-48.0); HEMOGLOBIN 9.3 g/dL (12-16); MCH 29.6 pg (26.0-34.0); MCHC 31.5 g/dL (31.0-37.0); MCV 93.9 fL (80.0-100.0); MEAN PLATELET VOLUME 10.5 fL (7.4-10.4); RBC 3.14 10x6/uL (4.00-5.40); RDW 18.3 % (11.5-14.5); WBC 10.2 10x3/uL (4.8-10.8)
[2018-10-17 09:01] LABS: PLATELET COUNT 202 10x3/uL (130-400)
[2018-10-17 09:14] LABS: ALBUMIN 1.5 g/dL (3.4-5.0); ANION GAP 19.6 mmol/L (8-16); BILIRUBIN - TOTAL 1.35 mg/dL (0.2-1.3); CALCIUM 9.2 mg/dL (8.5-10.1); CARBON DIOXIDE 23.1 mmol/L (21.0-32.0); CREATININE - SERUM 8.5 mg/dL (0.6-1.3); POTASSIUM - SERUM 4.7 mmol/L (3.5-5.1); PROTEIN - SERUM 6.5 g/dL (6.4-8.2)
[2018-10-17 09:23] LABS: THYROID STIMULATING HORMONE 0.71 uIU/mL (0.36-3.74)
[2018-10-17 09:39] LABS: HYPOCHROMASIA OCC; LYMPHOCYTES 15 % (15-50); MONOCYTES 27 % (2-11); NEUTROPHILS 55 % (40-80); PLATELET ESTIMATE NORMAL; ROULEAUX OCC
[2018-10-17 10:32] LABS: TROPONIN-I 0.388 ng/mL (0.000-0.060)
[2018-10-18] VITALS: BP 94/33
[2018-10-18 06:55] LABS: ALBUMIN 1.3 g/dL (3.4-5.0); ANION GAP 17.1 mmol/L (8-16); BILIRUBIN - TOTAL 1.35 mg/dL (0.2-1.3); CARBON DIOXIDE 23.2 mmol/L (21.0-32.0); CREATININE - SERUM 7.6 mg/dL (0.6-1.3); POTASSIUM - SERUM 4.3 mmol/L (3.5-5.1)
[2018-10-18 08:30] VITALS: BP 104/57
[2018-10-18 12:43] VITALS: Ht 165.1 cm; Wt 117.1 kg
[2018-10-18 21:09] VITALS: BP 102/44
[2018-10-19 04:00] VITALS: BP 97/45
[2018-10-19 06:01] LABS: BASOPHILS 0.2 % (0-2); EOSINOPHILS 0 % (0-7); HEMATOCRIT 27.9 % (36.0-48.0); HEMOGLOBIN 8.8 g/dL (12-16); IMMATURE GRANULOCYTES 0.9 % (0-5); LYMPHOCYTES 22.4 % (15-50); MCH 29.3 pg (26.0-34.0); MCHC 31.5 g/dL (31.0-37.0); MEAN PLATELET VOLUME 10.3 fL (7.4-10.4); MONOCYTES 36.3 % (2-11); NEUTROPHILS 40.2 % (40-80); PLATELET COUNT 187 10x3/uL (130-400); RDW 18.2 % (11.5-14.5); WBC 9.8 10x3/uL (4.8-10.8)
[2018-10-19 06:28] LABS: ANION GAP 13.3 mmol/L (8-16); CALCIUM 9.4 mg/dL (8.5-10.1); CARBON DIOXIDE 26.7 mmol/L (21.0-32.0); CREATININE - SERUM 6.8 mg/dL (0.6-1.3); PHOSPHOROUS 4.8 mg/dL (2.5-4.9)
[2018-10-19 08:25] VITALS: BP 82/36
[2018-10-19 12:15] VITALS: BP 93/47
[2018-10-19 20:18] VITALS: BP 111/46
[2018-10-20 00:29] VITALS: BP 87/43
[2018-10-20 04:00] VITALS: BP 86/39
[2018-10-20 07:37] VITALS: BP 105/40
[2018-10-20] MEDS ORDERED: ASPIRIN81 MG PO (11:26)
[2018-10-20] MEDS ORDERED: ACETAMINOPHEN325 MG PO (11:26)
[2018-10-20] MEDS ORDERED: PROCRIT 202000 UNIT/ SC (11:27)
[2018-10-20] MEDS ORDERED: FLORINEF 0.1 M0.1 MG PO (11:28)
[2018-10-20] MEDS ORDERED: NEPHRO-VITE RX1 TAB PO (11:29)
[2018-10-20] MEDS ORDERED: PROPRANOLOL HCL20 MG PO (11:29)
[2018-10-20] MEDS ORDERED: OXYBUTYNIN5 MG/BLIST PO (11:29)
[2018-10-20 12:12] VITALS: BP 89/44
[2018-10-20 16:04] VITALS: BP 99/45
== END 2018-10-20 18:00 | DRG 286 ==
LOC: D.ER 08:34 → D.M2 10:13 → D.EDHOLD 10:13 → D.M2 10:46
PROVIDERS: Emergency Medicine; Internal Medicine Interventional Cardiology; Internal Medicine Nephrology
PROC: B2151ZZ Fluoroscopy of Left Heart using Low Osmolar Contrast (ICD-10-PCS; 2018-10-18)
PROC: 4A023N7 Measurement of Cardiac Sampling and Pressure, Left Heart, Percutaneous Approach (ICD-10-PCS; 2018-10-18)
PROC: B240ZZ3 Ultrasonography of Single Coronary Artery, Intravascular (ICD-10-PCS; 2018-10-18)
PROC: B2111ZZ Fluoroscopy of Multiple Coronary Arteries using Low Osmolar Contrast (ICD-10-PCS; principal; 2018-10-18 09:00)
DX: I95.1 Orthostatic hypotension (principal); N18.6 End stage renal disease; I12.0 Hypertensive chronic kidney disease with stage 5 chronic kidney disease or end stage renal disease; I42.9 Cardiomyopathy, unspecified; E11.22 Type 2 diabetes mellitus with diabetic chronic kidney disease; Z99.2 Dependence on renal dialysis; I25.119 Atherosclerotic heart disease of native coronary artery with unspecified angina pectoris

== ENCOUNTER 2018-10-20 18:11 | Inpatient (IN) | payer MEDICARE ==
[~2018-10-20] VITALS: Ht 165.1 cm; Wt 114.7 kg
--- NOTE | ~2018-10-20 | RHP ---
PATIENT: NEISHA BOO MEDICAL RECORD: [id number] ACCOUNT: [id number] LOCATION:[facility] [place] : [birth year] ADMISSION DATE: 10/20/18 REHABILITATION HISTORY AND PHYSICAL EXAMINATION POST ADMISSION PHYSICIAN EXAMINATION DATE OF ADMISSION: 10/20/2018. ADMITTING DIAGNOSES: Debility secondary to end-stage renal disease and cardiomyopathy. HISTORY OF PRESENT ILLNESS: The patient is admitted to the inpatient rehab with end-stage renal disease and cardiomyopathy. She is a 57-year-old female patient admitted with orthostatic hypotension, presented to the ED with low BP, feeling bad and swelling. She had a cardiology consult. A heart cath was done on 10/18/2018 with no significant findings. She has got a past medical history of coronary artery disease with distant stenting. She began 7 months ago having issues with orthostatic hypotension, especially with hemodialysis. She was blacking out and having progressively worsening shortness of breath. Medication adjustments during her acute hospitalization and she continued to be monitored right now for management and adjustment of these medications and see how she does. She continues on hemodialysis 3 times weekly secondary to end-stage renal disease and nephrology is following her. She continues to have shortness of breath, weakness on telemetry and ability to manage steps, unsteady balance and gait, hypotension. She has had some elevated temperature at times with no signs of infection. She is having impaired mobility and self-care deficits. These are all barriers to her discharge home at this time. She was independent with her mobility and ADLs prior to this. She is currently set up for mod assist with ADLs, mod assist with mobility. She plans to return to her apartment alone with the ability to climb stairs at her prior level of functioning or better. COMORBIDITIES: In this patient include acute chest pain, end-stage renal disease, cardiomyopathy, nausea and vomiting, angina, palpitations, coronary artery disease, previous PTCA and stent, orthostatic hypotension, end-stage renal failure, weakness, and impaired mobility, shortness of breath and self-care deficits. PAST MEDICAL HISTORY: Significant for sinus problems, tinnitus, diplopia, hoarseness, diabetes, thyroid problems, hypotension, stents secondary to coronary artery disease, cardiomyopathy, shortness of breath, diarrhea, gout, psoriasis, and depression. PAST SURGICAL HISTORY: Includes partial hysterectomy, gallbladder surgery, tonsillectomy and adenoidectomy, hysterectomy, thyroidectomy, angioplasty with stents. ALLERGIES: MORPHINE, PRAVACHOL, LYRICA, ZITHROMAX, TRAMADOL, ALLOPURINOL, AND CYMBALTA. CURRENT MEDICATIONS: Include Reglan 10 mg t.i.d. and q.a.c. She is on Glucotrol 5 mg before breakfast, multivitamin daily, Renagel 800 mg t.i.d. with meals, oxybutynin 5 mg daily, Synthroid 200 mcg daily, Procrit 4000 units daily, aspirin 81 mg daily, Requip 0.25 mg q.h.s., Inderal 10 mg t.i.d., promethazine 12.5 mg q.6 hours p.r.n., Zyprexa 2.5 mg q.h.s., Nitrostat p.r.n., triamterene 10 mg q.a.c. and q.h.s., Florinef 0.1 mg b.i.d., and Tylenol 650 q.4 hours HISTORY AND PHYSICAL [id number] NEISHA BOO p.r.nNicki HABITS: No current alcohol or tobacco use. FAMILY HISTORY: Noncontributory. SOCIAL HISTORY: The patient hopes to return back home on her own and get back to her prior level of functioning. REVIEW OF SYSTEMS: GENERAL: Does complain of weakness and fatigue. HEENT: Denies cold, cough, or congestion. CARDIOVASCULAR: Denies chest pain. PHYSICAL EXAMINATION: VITAL SIGNS: Stable, afebrile. GENERAL: An older than stated age, obese female in no acute distress, alert upon exam. HEENT: Normocephalic and atraumatic. Mucosa moist. NECK: Supple. No lymphadenopathy. LUNGS: Clear at this time. HEART: Regular rate and rhythm. No murmurs, rubs or gallops. ABDOMEN: Benign. EXTREMITIES: No clubbing, cyanosis or edema. NEUROLOGIC: She does have noted proximal muscle weakness. LABORATORY DATA: Her white count is 12.2, H&H of 8.6 and 26.6, and platelet count was noted to be 191. Her sodium is 136, potassium 4.2, BUN and creatinine of 26 and 7.2, and blood sugar is noted to be 41. ASSESSMENT: This is a 57-year-old female patient admitted to the rehab with a working diagnosis of debility. The patient has potential to make improvement. We instituted the following multidisciplinary therapies including, but not limited to physical, occupational, respiratory, speech, nutritional services, prosthetics and orthotics. Given her complex medical condition and risks for more complications, rehabilitation services cannot be provided at a low level of care such as skilled nurse facility. PLAN: 1. Admit to [facility] for intensive inpatient therapy to include the following disciplines: A. Physical therapy to improve gait, all transfer skills and bed mobility to a modified independent level. B. Occupational therapy to improve activities of daily living to a modified independent level. C. Case management to assist with discharge planning and placement options. D. Nutrition to assist with nutritional needs. E. Rehabilitation nursing to assist in monitoring the patient's underlying medical conditions and to assist with any type of bowel or bladder management. 2. The patient's current medications and medical care will be continued. 3. The patient will be placed on standard fall precautions. 4. The patient's estimated length of stay is approximately 7-10 days. 5. We will discuss this patient during care team staff meeting this week. Appreciate nephrology following along with this patient. If she continues running low grade temp, we will look for any signs of infection and we will HISTORY AND PHYSICAL [id number] NEISHA BOO treat appropriately. TRANSINT:[id number] Voice Confirmation ID: [id number] DOCUMENT ID: [id number] 10/31/18 Edited for shabbir FLORES. SANDRA notes whether there has been none or any medical/functional change since admission: - No change since preadmission screen. SANDRA attests patient continues to be appropriate for IRF: - Continues to be appropriate. CORA COSTA MD CC: [id number] DICTATION DATE: 10/21/18911 FURNACE WORKER: 10/21/18 1006 DIS IN 10/28/18 [facility] [address] [place] [id number]
[~2018-10-20 18:11] MED LIST changes: +ACETAMINOPHEN325 MG PO; +ASPIRIN81 MG PO; +FLORINEF 0.1 M0.1 MG PO; +MIDODRINE HCL10 MG PO; +NEPHRO-VITE RX1 TAB PO; +OXYBUTYNIN5 MG/BLIST PO; +PROCRIT 202000 UNIT/ SC; +PROPRANOLOL HCL20 MG PO
[2018-10-20 23:28] VITALS: BP 136/71
[2018-10-21 07:15] LABS: BASOPHILS 0.2 % (0-2); EOSINOPHILS 0 % (0-7); HEMATOCRIT 26.6 % (36.0-48.0); HEMOGLOBIN 8.6 g/dL (12-16); IMMATURE GRANULOCYTES 0.9 % (0-5); LYMPHOCYTES 20.1 % (15-50); MCH 29.8 pg (26.0-34.0); MCHC 32.3 g/dL (31.0-37.0); MEAN PLATELET VOLUME 9.5 fL (7.4-10.4); MONOCYTES 33.1 % (2-11); NEUTROPHILS 45.7 % (40-80); PLATELET COUNT 191 10x3/uL (130-400); RBC 2.89 10x6/uL (4.00-5.40); RDW 18.1 % (11.5-14.5); WBC 12.2 10x3/uL (4.8-10.8)
[2018-10-21 07:23] LABS: ANION GAP 14.4 mmol/L (8-16); CALCIUM 9.5 mg/dL (8.5-10.1); CARBON DIOXIDE 25.8 mmol/L (21.0-32.0); CREATININE - SERUM 7.2 mg/dL (0.6-1.3); POTASSIUM - SERUM 4.2 mmol/L (3.5-5.1)
[2018-10-21 08:10] VITALS: BP 113/59
[2018-10-21 12:35] VITALS: BP 128/72
[2018-10-21 14:38] VITALS: BMI 42.6
[2018-10-21 19:00] VITALS: BP 99/43
[2018-10-22 00:11] VITALS: BP 125/65
[2018-10-22 05:50] VITALS: BP 95/38
[2018-10-22 07:14] LABS: BASOPHILS 0.1 % (0-2); EOSINOPHILS 0 % (0-7); HEMATOCRIT 24.9 % (36.0-48.0); HEMOGLOBIN 8.1 g/dL (12-16); IMMATURE GRANULOCYTES 0.7 % (0-5); LYMPHOCYTES 33.1 % (15-50); MCH 29.7 pg (26.0-34.0); MCHC 32.5 g/dL (31.0-37.0); MCV 91.2 fL (80.0-100.0); MEAN PLATELET VOLUME 9.3 fL (7.4-10.4); MONOCYTES 19.9 % (2-11); NEUTROPHILS 46.2 % (40-80); PLATELET COUNT 173 10x3/uL (130-400); RBC 2.73 10x6/uL (4.00-5.40)
[2018-10-22 07:36] LABS: ANION GAP 14.5 mmol/L (8-16); CALCIUM 9.2 mg/dL (8.5-10.1); CARBON DIOXIDE 25.6 mmol/L (21.0-32.0); CREATININE - SERUM 5.9 mg/dL (0.6-1.3); PHOSPHOROUS 4.1 mg/dL (2.5-4.9); POTASSIUM - SERUM 4.1 mmol/L (3.5-5.1)
[2018-10-22 12:03] VITALS: BP 86/36
[2018-10-22 18:03] VITALS: BP 88/43
[2018-10-22 19:05] VITALS: BP 96/53
[2018-10-23 00:02] VITALS: BP 90/32
[2018-10-23 06:00] VITALS: BP 89/41
[2018-10-23 08:17] VITALS: BP 87/49
[2018-10-23 12:10] VITALS: BP 99/42
[2018-10-23 15:22] VITALS: BP 94/52
[2018-10-24 00:01] VITALS: BP 99/48
[2018-10-24 06:15] VITALS: BP 92/43
[2018-10-24 06:52] LABS: BASOPHILS 0.3 % (0-2); EOSINOPHILS 0 % (0-7); HEMATOCRIT 26.4 % (36.0-48.0); HEMOGLOBIN 8.4 g/dL (12-16); IMMATURE GRANULOCYTES 0.7 % (0-5); LYMPHOCYTES 19.7 % (15-50); MCH 28.8 pg (26.0-34.0); MCHC 31.8 g/dL (31.0-37.0); MCV 90.4 fL (80.0-100.0); MEAN PLATELET VOLUME 9.5 fL (7.4-10.4); MONOCYTES 36.9 % (2-11); NEUTROPHILS 42.4 % (40-80); PLATELET COUNT 199 10x3/uL (130-400); RBC 2.92 10x6/uL (4.00-5.40); RDW 18.3 % (11.5-14.5); WBC 11.8 10x3/uL (4.8-10.8)
[2018-10-24 07:06] LABS: ANION GAP 15.5 mmol/L (8-16); CALCIUM 8.8 mg/dL (8.5-10.1); CARBON DIOXIDE 25.5 mmol/L (21.0-32.0); CREATININE - SERUM 5.6 mg/dL (0.6-1.3)
[2018-10-24 08:55] LABS: TOTAL IRON BIND CAPACITY 46 ug/dl (260-445)
[2018-10-24 08:57] LABS: % SATURATION 100 % (15-55); IRON 46 ug/dl (35-150); UNSAT IRON BIND CAPACITY 0 ug/dl (150-375)
[2018-10-24 10:03] VITALS: BP 128/74
[2018-10-24 17:23] VITALS: BP 100/56
[2018-10-24 19:02] VITALS: BP 92/41
[2018-10-24 22:48] VITALS: BP 97/56
[2018-10-25 06:00] VITALS: BP 98/53
[2018-10-25 12:00] VITALS: BP 82/38
[2018-10-25 18:14] VITALS: BP 96/84
[2018-10-25 23:36] VITALS: BP 101/49
[2018-10-26 05:53] VITALS: BP 96/50
[2018-10-26 06:14] LABS: BASOPHILS 0.3 % (0-2); EOSINOPHILS 0 % (0-7); HEMATOCRIT 25.3 % (36.0-48.0); HEMOGLOBIN 8.6 g/dL (12-16); LYMPHOCYTES 24.6 % (15-50); MCV 91.3 fL (80.0-100.0); MEAN PLATELET VOLUME 9.5 fL (7.4-10.4); MONOCYTES 36.6 % (2-11); NEUTROPHILS 37.5 % (40-80); PLATELET COUNT 190 10x3/uL (130-400); RBC 2.77 10x6/uL (4.00-5.40); RDW 18.6 % (11.5-14.5); WBC 13.2 10x3/uL (4.8-10.8)
[2018-10-26 06:19] LABS: ANION GAP 15.6 mmol/L (8-16); CALCIUM 8.8 mg/dL (8.5-10.1); CARBON DIOXIDE 26.9 mmol/L (21.0-32.0); POTASSIUM - SERUM 4.5 mmol/L (3.5-5.1)
[2018-10-26 06:24] LABS: CREATININE - SERUM 8.5 mg/dL (0.6-1.3)
[2018-10-26 08:00] VITALS: BP 99/49
[2018-10-26 11:54] VITALS: BP 105/50
[2018-10-26 15:23] VITALS: BP 112/50
[2018-10-26 17:13] VITALS: Ht 165.1 cm; Wt 114.7 kg
[2018-10-26 17:19] VITALS: BP 106/61
[2018-10-26 20:45] VITALS: BP 94/42
[2018-10-27 00:10] VITALS: BP 87/61
[2018-10-27 06:26] VITALS: BP 88/52
[2018-10-27 19:00] VITALS: BP 91/42
[2018-10-28 00:26] VITALS: BP 113/50
[2018-10-28 06:21] VITALS: BP 94/36
[2018-10-28 07:38] LABS: ANION GAP 22.3 mmol/L (8-16); CALCIUM 8.4 mg/dL (8.5-10.1); CARBON DIOXIDE 20.9 mmol/L (21.0-32.0); CREATININE - SERUM 9.3 mg/dL (0.6-1.3)
[2018-10-28 07:39] LABS: POTASSIUM - SERUM 5.2 mmol/L (3.5-5.1)
[2018-10-28 07:51] LABS: BASOPHILS 0.2 % (0-2); EOSINOPHILS 0 % (0-7); HEMATOCRIT 27.2 % (36.0-48.0); HEMOGLOBIN 8.8 g/dL (12-16); LYMPHOCYTES 22.1 % (15-50); MCH 29.6 pg (26.0-34.0); MCHC 32.4 g/dL (31.0-37.0); MCV 91.6 fL (80.0-100.0); MEAN PLATELET VOLUME 9.8 fL (7.4-10.4); MONOCYTES 34.1 % (2-11); NEUTROPHILS 42.6 % (40-80); PLATELET COUNT 170 10x3/uL (130-400); RBC 2.97 10x6/uL (4.00-5.40); RDW 18.8 % (11.5-14.5); WBC 13.8 10x3/uL (4.8-10.8)
[2018-10-28 08:00] VITALS: BP 96/45
[2018-10-28 12:00] VITALS: BP 113/59
[2018-10-29 11:09] LABS: HEPATITIS C ANTIBODY 0.6 (0.0-0.9)
== END 2018-10-28 18:36 | disposition short-term general hospital (02) | DRG 947 ==
LOC: D.REHAB 18:11
PROVIDERS: Emergency Medicine; Internal Medicine Hematology & Oncology; Internal Medicine Nephrology
DX: R53.81 Other malaise (principal); N18.6 End stage renal disease; I42.9 Cardiomyopathy, unspecified; E11.22 Type 2 diabetes mellitus with diabetic chronic kidney disease; Z99.2 Dependence on renal dialysis; R11.2 Nausea with vomiting, unspecified; I25.119 Atherosclerotic heart disease of native coronary artery with unspecified angina pectoris; R00.2 Palpitations; I95.1 Orthostatic hypotension; R53.1 Weakness; R06.02 Shortness of breath; Z95.5 Presence of coronary angioplasty implant and graft; E11.65 Type 2 diabetes mellitus with hyperglycemia

== ENCOUNTER 2018-10-28 16:43 | Inpatient (IN) | payer MEDICARE ==
[~2018-10-28] VITALS: Ht 165.1 cm; Wt 114.3 kg
--- NOTE | 2018-10-28 19:15 | NUR ---
RECEIVED CARE FROM DAY NURSE. LYING IN BED ON SIDE. EYES CLOSED, RESP EVEN AND UNLABORED. CALL LIGHT AT SIDE. NO IV ACCESS.
--- NOTE | 2018-10-28 19:29 | NUR ---
REPORT CHECKER CPML[AKILA. PT LYING IN BED WITH NO EVIDENCE OF DISTRESS. CL WITHIN REACH
[2018-10-28 20:00] VITALS: BP 112/54
[2018-10-28 23:22] VITALS: BP 112/54; BMI 42.0
[2018-10-29] VITALS: BP 97/40
[2018-10-29 04:00] VITALS: BP 113/57
--- NOTE | 2018-10-29 08:10 | NUR ---
PT AAOX4 RESP EVEN AND NONLABORED, NO SIGNS OF DISTRESS NOTED, WILL CONTINUE TO MONITOR, CL IN REACH NO QUESTIONS/CONCERNS EXPRESSED
[2018-10-29 08:48] VITALS: BMI 41.9
[2018-10-29 09:41] VITALS: BP 101/54
--- NOTE | 2018-10-29 10:00 | NUR ---
CALLED TO GET MONITOR WAS TOLD THEY DIDNT HAVE ONE AVAIBLE AT THIS TIME
[2018-10-29 10:33] LABS: BASOPHILS 0.2 % (0-2); EOSINOPHILS 0 % (0-7); HEMATOCRIT 26.5 % (36.0-48.0); HEMOGLOBIN 8.5 g/dL (12-16); IMMATURE GRANULOCYTES 0.6 % (0-5); LYMPHOCYTES 23.2 % (15-50); MCH 29.5 pg (26.0-34.0); MCHC 32.1 g/dL (31.0-37.0); MEAN PLATELET VOLUME 9.3 fL (7.4-10.4); MONOCYTES 31.8 % (2-11); NEUTROPHILS 44.2 % (40-80); PLATELET COUNT 190 10x3/uL (130-400); RBC 2.88 10x6/uL (4.00-5.40); RDW 18.8 % (11.5-14.5); WBC 12.1 10x3/uL (4.8-10.8)
[2018-10-29 10:50] LABS: ALBUMIN 1.2 g/dL (3.4-5.0); ANION GAP 13.8 mmol/L (8-16); BILIRUBIN - TOTAL 1.55 mg/dL (0.2-1.3); CALCIUM 8.8 mg/dL (8.5-10.1); CARBON DIOXIDE 25.3 mmol/L (21.0-32.0); PROTEIN - SERUM 5.8 g/dL (6.4-8.2)
[2018-10-29 10:52] LABS: POTASSIUM - SERUM 4.1 mmol/L (3.5-5.1)
[2018-10-29 12:16] VITALS: BP 96/47; Ht 165.1 cm; Wt 114.3 kg
[2018-10-29 17:32] VITALS: BP 114/58
--- NOTE | 2018-10-29 18:16 | NUR ---
PT HERE FOR MYOCYTIS FOR THIS VISIT PT DENIES NEEDS AT THIS TIME WILL CONTINUE TO MONITOR
--- NOTE | 2018-10-29 19:15 | NUR ---
RECEIVED CARE FROM DAY NURSE. LYING IN BED ON SIDE. REPORTS NO NEEDS AT THIS TIME. NO IV. CALL LIGHT AT SIDE.
[2018-10-29 20:00] VITALS: BP 99/49
[2018-10-30] VITALS: BP 99/47
--- NOTE | 2018-10-30 01:37 | NUR ---
PATIENT IN BED AWAKE IN BED STATES NO NEEDS AT THIS TIME, NO S/S OF DISTRESS.
[2018-10-30 04:00] VITALS: BP 105/47
[2018-10-30 06:43] LABS: BASOPHILS 0.3 % (0-2); EOSINOPHILS 0 % (0-7); HEMATOCRIT 25.8 % (36.0-48.0); HEMOGLOBIN 8.3 g/dL (12-16); IMMATURE GRANULOCYTES 0.8 % (0-5); LYMPHOCYTES 19.3 % (15-50); MCH 29.9 pg (26.0-34.0); MCHC 32.2 g/dL (31.0-37.0); MCV 92.8 fL (80.0-100.0); MEAN PLATELET VOLUME 9.2 fL (7.4-10.4); MONOCYTES 33.6 % (2-11); PLATELET COUNT 183 10x3/uL (130-400); RBC 2.78 10x6/uL (4.00-5.40); RDW 18.9 % (11.5-14.5); WBC 13.2 10x3/uL (4.8-10.8)
[2018-10-30 07:06] LABS: ALBUMIN 1.1 g/dL (3.4-5.0); ANION GAP 14.4 mmol/L (8-16); BILIRUBIN - TOTAL 1.36 mg/dL (0.2-1.3); CALCIUM 8.6 mg/dL (8.5-10.1); CARBON DIOXIDE 26.9 mmol/L (21.0-32.0); CREATININE - SERUM 8.2 mg/dL (0.6-1.3); PHOSPHOROUS 5.5 mg/dL (2.5-4.9); POTASSIUM - SERUM 4.3 mmol/L (3.5-5.1); PROTEIN - SERUM 5.6 g/dL (6.4-8.2); THYROID STIMULATING HORMONE 0.24 uIU/mL (0.36-3.74)
[2018-10-30 09:24] VITALS: BP 116/60
[2018-10-30 13:06] VITALS: BP 127/57
[2018-10-30 17:18] VITALS: BP 106/61
--- NOTE | 2018-10-30 18:47 | NUR ---
NORCO GIVEN FOR GENERALIZED LEG PAIN WITH MEDICATION EFFECTIVE. PEDAL PULSED NOTED WITH 2 PLUS EDEMA TO BLE. TELEMETRY INTACT WITHOUT CHEST PAIN SR 88. ENCOURAGED TO USE CALL LIGHT FOR ASSIST. NPO AFTER MIDNIGHT.
--- NOTE | 2018-10-30 19:45 | NUR ---
LYING IN BED. ALERT AND ORIENTED. RESP EVEN AND NONLABORED. TELEMETRY SHOWS SR WITH RATE OF 76. NO IV ACCESS. LT ARM RESERVE. ABD OBESE, NONTENDER. CKD PT AND HAS DIALYSIS. DOES NOT VOID. 2+ EDEMA NOTED TO BLE. HAS PAIN IN LEGS BUT RECEIVED PAIN MED PRIOR TO SHIFT CHANGE. AMBULATORY. NO DISTRESS. SR ELEVATED X2. CL IN REACH.
[2018-10-30 20:00] VITALS: BP 116/63
[2018-10-31] VITALS (14 sets, daily range): BP systolic 91–124; BP diastolic 51–76
--- NOTE | 2018-10-31 01:05 | NUR ---
HAS RESTED WELL SO FAR TONIGHT. LYING IN BED WITH EYES CLOSED. CHEST RISING AND FALLING EVENLY. SR ELEVATED X2. CL IN REACH.
--- NOTE | 2018-10-31 06:00 | NUR ---
FSBS 60. PT IS NPO. GLUCAGEN GIVEN SC. HIBACLEANZ GIVEN AT THIS TIME. CONSENTS SIGNED FOR BONE MARROW BIOPSY. PT IS ALERT AND ORIENTED BUT STATES SHE FEELS SHAKY.
[2018-10-31 06:38] LABS: INR 1.59 (0.85-1.17); PROTIME 18.4 SECONDS (11.6-15.0)
[2018-10-31 06:39] LABS: APTT 60.9 SECONDS (22.8-39.4)
[2018-10-31 06:41] LABS: BASOPHILS 0.2 % (0-2); EOSINOPHILS 0 % (0-7); HEMOGLOBIN 8.5 g/dL (12-16); IMMATURE GRANULOCYTES 0.8 % (0-5); LYMPHOCYTES 25.5 % (15-50); MCHC 31.5 g/dL (31.0-37.0); MCV 92.2 fL (80.0-100.0); MEAN PLATELET VOLUME 9.8 fL (7.4-10.4); MONOCYTES 25.7 % (2-11); NEUTROPHILS 47.8 % (40-80); PLATELET COUNT 205 10x3/uL (130-400); RBC 2.93 10x6/uL (4.00-5.40); RDW 18.7 % (11.5-14.5); WBC 13.2 10x3/uL (4.8-10.8)
--- NOTE | 2018-10-31 06:45 | NUR ---
FSBS RECHECKED AND IS 65. WILL MONITOR CLOSELY.
[2018-10-31 06:57] LABS: ALBUMIN 1.1 g/dL (3.4-5.0); ANION GAP 17.3 mmol/L (8-16); BILIRUBIN - TOTAL 1.52 mg/dL (0.2-1.3); CALCIUM 8.7 mg/dL (8.5-10.1); CARBON DIOXIDE 24.9 mmol/L (21.0-32.0); CREATININE - SERUM 9.4 mg/dL (0.6-1.3); POTASSIUM - SERUM 4.2 mmol/L (3.5-5.1)
--- NOTE | 2018-10-31 11:11 | NUR ---
PATIENT RETURN FRO PROCEDURE AND TOLERATED WELL.ALERT AND ORIENTED X 3. DRESSING INTACT TO LT. UPPER HIP. ENCOURAGED TO USE CALL LIGHT FOR ASSISTANCE. VERBALIZED UNDERSTANDING. STABLE AT THIS TIME.
--- NOTE | 2018-10-31 16:38 | MORECARE ---
CASE MANAGEMENT DISCHARGE SUMMARY PATIENT: NEISHA BOO UNIT: [id number] ADM DATE: 10/28/18 AGE: 57 : 62 SEX: F ROOM/BED: D.2208 AUTHOR: SEBASTIAN REYES PHYSICIAN: REFERRING PHYSICIAN: CORA COSTA MD DATE OF SERVICE: 10/31/18 Discharge Plan Patient Name: NEISHA BOO [facility] [facility] 1960 Planned Disposition: Home Anticipated Discharge Date: Discharge Date: Expected LOS: Initial Reviewer: [email or web address] Initial Review Date: 10/31/2018 Generated: 10/31/18 5:38 pm DCPIA - Discharge Planning Initial Assessment Updated by [email or web address]: Mary Banks on 10/31/18 4:37 pm * Is the patient Alert and Oriented? Yes * How many steps to enter\exit or inside your home? 17/0 * PCP Dr. Bourgeois * Pharmacy [facility] on [address] * Preadmission Environment Acute Inpatient Rehab * Facility Name [facility] inpatient rehab * ADLs Partial Dependent * Partial ADLs (Assistance needed) Ambulation * Equipment None * List name and contact numbers for known caregivers / representatives who currently or will assist patient after discharge: Jassi Pugh [facility] - [phone] * Verbal permission to speak to the caregivers and representatives has been obtained from the patient. Yes * Community resources currently utilized None * Additional services required to return to the preadmission environment? Yes * Can the patient safely return to the preadmission environment? Yes * Has this patient been hospitalized within the prior 30 days at any hospital? Yes Patient Name: NEISHA BOO Page 06248 at 1638 All edits/amendments must be made on the electronic document DICTATION DATE: 10/31/181637 KETTLE OPERATOR: CAMILLE 10/31/181637 RPT#: [id number] DC DATE: STATUS: ADM IN [facility] [address] [place] [address] END OF REPORT
--- NOTE | 2018-10-31 16:46 | MORECARE ---
CASE MANAGEMENT DISCHARGE SUMMARY PATIENT: NEISHA BOO UNIT: [id number] ADM DATE: 10/28/18 AGE: 57 : 62 SEX: F ROOM/BED: D.2208 AUTHOR: SEBASTIAN REYES PHYSICIAN: REFERRING PHYSICIAN: CORA COSTA MD DATE OF SERVICE: 10/31/18 Discharge Plan Patient Name: NEISHA BOO Facility: [facility]:[place] : 1960 Planned Disposition: Home Anticipated Discharge Date: Discharge Date: Expected LOS: Initial Reviewer: [email or web address] Initial Review Date: 10/31/2018 Generated: 10/31/18 5:46 pm Comments DCP- Discharge Planning Updated by [email or web address]: Mary Banks on 10/31/18 3:[address] Patient Name: NEISHA BOO Admission Status: Elective Accout number: [id number] Admission Date: 10-28-2018 : 1960 Admission Diagnosis:ANEMIA, UNSPECIFIED Attending: CORA COSTA Current LOS: 3 Anticipated DC Date: Planned Disposition: Home Primary Insurance: MEDICARE A & B Discharge Planning Comments: CM met with patient to discuss discharge planning, she is alone in the room. States she is planning to go live with her sister when she leaves here. States her sister does not have any stairs to climb. States she was living alone in an apartment. States there are 17 stairs to get into her apartment. I discussed the availability of inpatient rehab, SNF and home health. She states she is going to her sister's and she does not want home health. States her sister will pick her up. She states she is independent with all ADL:'s. States she does not drive but uses public transportation. States she may need a walker, other than that she does not need any DME. CM will continue to follow and assist with discharge planning/needs. Public Works Supervisor: Mary Banks DCPIA - Discharge Planning Initial Assessment Updated by [email or web address]: Mary Banks on 10/31/18 4:37 pm * Is the patient Alert and Oriented? Yes * How many steps to enter\exit or inside your home? 17/0 * PCP Dr. Bourgeois * Pharmacy [facility] [address] * Preadmission Environment Acute Inpatient Rehab * Facility Name [facility] inpatient rehab * ADLs Partial Dependent * Partial ADLs (Assistance needed) Ambulation * Equipment None * List name and contact numbers for known caregivers / representatives who currently or will assist patient after discharge: Jassi Pugh - [facility] - [phone] * Verbal permission to speak to the caregivers and representatives has been obtained from the patient. Yes * Community resources currently utilized None * Additional services required to return to the preadmission environment? Yes * Can the patient safely return to the preadmission environment? Yes * Has this patient been hospitalized within the prior 30 days at any hospital? Yes Last DP export: 10/31/18 3:38 Patient Name: NEISHA BOO Page 85290 at 1646 All edits/amendments must be made on the electronic document DICTATION DATE: 10/31/181645 SHAREPOINT APPLICATION ARCHITECT: CAMILLE 10/31/181645 RPT#: [id number] SC DATE: STATUS: ADM IN [facility] [address] [place] [address] END OF REPORT
--- NOTE | 2018-10-31 19:00 | NUR ---
PT ALERT AND ORIENTED WHEN ENTERING THE ROOM. PT USING TELEPHONE. STATES NO COMPLAINTS AT THIS TIME. CHECKED BS. 87. PT REQUESTS TYLENOL WITH HS MEDICATIONS.
[2018-11-01 00:38] VITALS: BP 122/85
--- NOTE | 2018-11-01 04:00 | NUR ---
PT LYING IN BED RESTING, NO SIGNS OF DISTRESS. DENIES NEEDS. CL IN REACH, WILLC CONTINUE TO MONITOR
[2018-11-01 05:06] VITALS: BP 95/54
[2018-11-01 06:13] LABS: BASOPHILS 0.2 % (0-2); EOSINOPHILS 0.1 % (0-7); HEMATOCRIT 25.4 % (36.0-48.0); HEMOGLOBIN 8.1 g/dL (12-16); IMMATURE GRANULOCYTES 0.6 % (0-5); LYMPHOCYTES 25.2 % (15-50); MCH 29.3 pg (26.0-34.0); MCHC 31.9 g/dL (31.0-37.0); MEAN PLATELET VOLUME 9.8 fL (7.4-10.4); MONOCYTES 25.4 % (2-11); NEUTROPHILS 48.5 % (40-80); PLATELET COUNT 172 10x3/uL (130-400); RBC 2.76 10x6/uL (4.00-5.40); RDW 18.7 % (11.5-14.5); WBC 12.6 10x3/uL (4.8-10.8)
[2018-11-01 06:45] LABS: ALBUMIN 1.1 g/dL (3.4-5.0); ANION GAP 18.4 mmol/L (8-16); BILIRUBIN - TOTAL 1.4 mg/dL (0.2-1.3); CALCIUM 8.4 mg/dL (8.5-10.1); CARBON DIOXIDE 23.2 mmol/L (21.0-32.0); CREATININE - SERUM 10.8 mg/dL (0.6-1.3); PHOSPHOROUS 6.3 mg/dL (2.5-4.9); POTASSIUM - SERUM 4.6 mmol/L (3.5-5.1); PROTEIN - SERUM 5.6 g/dL (6.4-8.2)
--- NOTE | 2018-11-01 07:40 | NUR ---
PT SITTING UP ON SIDE OF BED WITH EYES OPEN. PT REPORTS BEING SLEEPY, BUT AAO X 4. PT IS A LEFT ARM RESERVE. TELEMETRY IS ON. PT DENIES PRESENCE OF SOB AND NUMBNESS/TINGLING. PT DENIES PAIN. RESPIRATIONS ARE EVEN AND UNLABORED. BED IS IN LOWEST POSITION. CALL LIGHT AND BEDSIDE TABLE ARE WITHIN REACH. PT DENIES FURTHER NEEDS AT THIS TIME.
--- NOTE | 2018-11-01 08:59 | NUR ---
PT CONSUMED MORNING MEDICATIONS, SEE EMAR. PT THEN BEGAN VOMITING YELLOW EMESIS INTO EMESIS BASIN. PT REPORTS THAT "THIS IS THE SECOND TIME I HAVE DID IT SINCE I'VE BEEN HERE". PT OFFERED ANTIEMETIC, PT DENIED. WILL CONT TO MONITOR.
[2018-11-01 09:07] VITALS: BP 98/54
--- NOTE | 2018-11-01 09:49 | NUR ---
PT OFF FLOOR VIA WHEELCHAIR TO DIALYSIS.
--- NOTE | 2018-11-01 13:29 | NUR ---
PT RETURNED TO ROOM VIA WHEELCHAIR FROM DIALYSIS. BED IS IN LOWEST POSITION. CALL LIGHT AND BEDSIDE TABLE ARE WITHIN REACH. PT DENIES FURTHER NEEDS AT THIS TIME. WILL CONT TO MONITOR.
--- NOTE | 2018-11-01 13:49 | NUR ---
DR OSCAR NOTIFIED THAT PT IS CLEAR FOR D/C FROM DR SILVA PER NURSING MESSAGE ORDER.
--- NOTE | 2018-11-01 15:41 | NUR ---
DR OSCAR NOTIFIED OF PT DISCHARGE ORDER.
[2018-11-01 15:56] VITALS: BP 113/59
--- NOTE | 2018-11-01 16:57 | NUR ---
DISCHARGE INSTRUCTIONS GIVEN TO PT. ALL QUESTIONS ANSWERED. PT DENIES FURTHER QUESTIONS/CONCERNS. ALL DISCHARGE PAPER WORK SIGNED. PT STATES THAT SHE WILL NOTIFY SISTER OF NEED FOR TRANSPORTATION HOME. BED IS IN LOWEST POSITION. CALL LIGHT AND BEDSIDE TABLE ARE WITHIN REACH. PT DENIES FURTHER NEEDS AT THIS TIME. WILL CONT TO MONITOR.
--- NOTE | 2018-11-02 16:25 | MORECARE ---
CASE MANAGEMENT DISCHARGE SUMMARY PATIENT: NEISHA BOO UNIT: [id number] ADM DATE: 10/28/18 AGE: 57 : 62 SEX: F ROOM/BED: D.2208 AUTHOR: SEBASTIAN REYES PHYSICIAN: REFERRING PHYSICIAN: CORA COSTA MD DATE OF SERVICE: 11/02/18 Discharge Plan Patient Name: NEISHA BOO Facility: [facility]:[place] : 1960 Planned Disposition: Home Anticipated Discharge Date: Discharge Date: 11/01/2018 Expected LOS: 0 Initial Reviewer: [email or web address] Initial Review Date: 10/31/2018 Generated: 11/02/18 5:25 pm Comments DCP- Discharge Planning Updated by [email or web address]: Mary Banks on 10/31/18 3:[address] Patient Name: NEISHA BOO Admission Status: Elective Accout number: [id number] Admission Date: 10-28-2018 : 1960 Admission Diagnosis:ANEMIA, UNSPECIFIED Attending: CORA COSTA Current LOS: 3 Anticipated DC Date: Planned Disposition: Home Primary Insurance: MEDICARE A & B Discharge Planning Comments: CM met with patient to discuss discharge planning, she is alone in the room. States she is planning to go live with her sister when she leaves here. States her sister does not have any stairs to climb. States she was living alone in an apartment. States there are 17 stairs to get into her apartment. I discussed the availability of inpatient rehab, SNF and home health. She states she is going to her sister's and she does not want home health. States her sister will pick her up. She states she is independent with all ADL:'s. States she does not drive but uses public transportation. States she may need a walker, other than that she does not need any DME. CM will continue to follow and assist with discharge planning/needs. Pbx Supervisor: Mary Banks DCPIA - Discharge Planning Initial Assessment Updated by [email or web address]: Mary Banks on 10/31/18 4:37 pm * Is the patient Alert and Oriented? Yes * How many steps to enter\exit or inside your home? 17/0 * PCP Dr. Bourgeois * [facility]acy [facility] [address] * Preadmission Environment Acute Inpatient Rehab * Facility Name [facility] inpatient rehab * ADLs Partial Dependent * Partial ADLs (Assistance needed) Ambulation * Equipment None * List name and contact numbers for known caregivers / representatives who currently or will assist patient after discharge: Jassi martin - [phone] * Verbal permission to speak to the caregivers and representatives has been obtained from the patient. Yes * Community resources currently utilized None * Additional services required to return to the preadmission environment? Yes * Can the patient safely return to the preadmission environment? Yes * Has this patient been hospitalized within the prior 30 days at any hospital? Yes Last DP export: 10/31/18 3:46 Patient Name: NEISHA BOO Page [id number] at 1625 All edits/amendments must be made on the electronic document DICTATION DATE: 11/02/181624 HOUSING OFFICER: CAMILLE 11/02/18 RPT#: [id number] DC DATE:11/01/18 STATUS: DIS IN [facility] [address] [place] [address] END OF REPORT
== END 2018-11-01 16:57 | disposition home or self-care (01) | DRG 814 ==
LOC: D.MS 16:43
PROVIDERS: General Practice; Internal Medicine Nephrology; ADMIT Emergency Medicine
PROC: 07DR3ZX Extraction of Iliac Bone Marrow, Percutaneous Approach, Diagnostic (ICD-10-PCS; principal; 2018-10-31 10:28)
DX: D72.821 Monocytosis (symptomatic) (principal); N18.6 End stage renal disease; I13.2 Hypertensive heart and chronic kidney disease with heart failure and with stage 5 chronic kidney disease, or end stage renal disease; E87.1 Hypo-osmolality and hyponatremia; D64.9 Anemia, unspecified; E11.22 Type 2 diabetes mellitus with diabetic chronic kidney disease; I50.9 Heart failure, unspecified; Z99.2 Dependence on renal dialysis; I25.10 Atherosclerotic heart disease of native coronary artery without angina pectoris; I95.1 Orthostatic hypotension; E83.111 Hemochromatosis due to repeated red blood cell transfusions

== ENCOUNTER 2018-11-28 09:14 | Emergency (ER) | payer MEDICARE ==
[~2018-11-28] VITALS: Ht 167.6 cm; Wt 112.3 kg
[2018-11-28 09:27] VITALS: Ht 167.6 cm; Wt 112.3 kg
[2018-11-28 09:59] LABS: BASOPHILS 0.6 % (0-2); EOSINOPHILS 0 % (0-7); HEMATOCRIT 26.4 % (36.0-48.0); HEMOGLOBIN 8.5 g/dL (12-16); IMMATURE GRANULOCYTES 1.3 % (0-5); LYMPHOCYTES 33.7 % (15-50); MCH 30.7 pg (26.0-34.0); MCHC 32.2 g/dL (31.0-37.0); MCV 95.3 fL (80.0-100.0); MEAN PLATELET VOLUME 9.4 fL (7.4-10.4); MONOCYTES 11.5 % (2-11); NEUTROPHILS 52.9 % (40-80); PLATELET COUNT 202 10x3/uL (130-400); RBC 2.77 10x6/uL (4.00-5.40); RDW 20.3 % (11.5-14.5); WBC 11.5 10x3/uL (4.8-10.8)
[2018-11-28 10:14] LABS: ALBUMIN 1.1 g/dL (3.4-5.0); ALKALINE PHOSPHATASE 111 U/L (46-116); ALT (SGPT) 12 U/L (10-68); BILIRUBIN - TOTAL 1.15 mg/dL (0.2-1.3); CALC OSMOLALITY 286 mosm/kg (275-300); CALCIUM 8.2 mg/dL (8.5-10.1); CARBON DIOXIDE 26.7 mmol/L (21.0-32.0); CHLORIDE - SERUM 105 mmol/L (98-107); CREATININE - SERUM 4.5 mg/dL (0.6-1.3); POTASSIUM - SERUM 3.3 mmol/L (3.5-5.1); PROTEIN - SERUM 6.5 g/dL (6.4-8.2); SODIUM 141 mmol/L (136-145); UREA NITROGEN 20 mg/dL (7-18); eGFR NON AFRICAN AMERICAN 11 mL/min (90-120)
[2018-11-28 10:16] LABS: GLUCOSE 156 mg/dL (74-106)
[2018-11-28 10:29] LABS: INR 1.45 (0.85-1.17); PROTIME 17.1 SECONDS (11.6-15.0)
[2018-11-28 10:30] LABS: APTT 75.6 SECONDS (22.8-39.4); CREATINE KINASE 46 UL (21-215); MAGNESIUM - SERUM 1.9 mg/dL (1.8-2.4)
[2018-11-28 13:30] VITALS: BP 106/52
== END 2018-11-28 13:32 | disposition home or self-care (01) ==
LOC: D.ER 09:14
PROVIDERS: Family Medicine
DX: R07.89 Other chest pain (principal); S90.822A Blister (nonthermal), left foot, initial encounter; X58.XXXA Exposure to other specified factors, initial encounter; Y93.89 Activity, other specified; Y92.89 Other specified places as the place of occurrence of the external cause; I12.9 Hypertensive chronic kidney disease with stage 1 through stage 4 chronic kidney disease, or unspecified chronic kidney disease; N18.9 Chronic kidney disease, unspecified; Z99.2 Dependence on renal dialysis